=== PATIENT | female | born 1940 | race African-American/Black ===

== ENCOUNTER 2020-02-13 09:01 | Inpatient (IN) | payer MEDICARE, MEDICAID, OTHER ==
[2020-02-13 10:05] LABS: #Lymphocytes 0.5 thou/uL (1.20-3.40); #Monocytes 0.3 thou/uL (0.11-0.59); #Neutrophils 7.5 thou/uL (1.40-6.50); %Basophils 0.1 % (0.0-1.0); %Lymphocytes 5.4 % (21.0-51.0); %Monocytes 3.2 % (0.0-10.0); %Neutrophils 91.2 % (42.0-75.0); Hemoglobin 13.3 g/dL (12.0-16.0); Mean Corpuscular HGB CONC 30.6 g/dL (32.0-36.0); Mean Corpuscular Hemoglobin 30.6 pg (27.0-31.0); Mean Corpuscular Volume 99.8 fL (78.0-98.0); Mean Platelet Volume 9.4 fL (7.4-10.4); Platelet Count 142 thou/uL (130-400); Red Blood Cell (RBC) Count 4.36 mill/uL (4.20-5.40); White Blood Cell (WBC) Count 8.3 thou/uL (4.8-10.8)
--- NOTE | 2020-02-13 10:11 | RAD ---
EXAM: Single view of the chest HISTORY: Weakness and difficulty breathing COMPARISON: 08/21/2014 FINDINGS: Single view of the chest shows a normal sized cardiomediastinal silhouette. Atheroscleroti c calcifications are seen in the aorta. Multifocal peripheral airspace opacities are seen in the lungs. No pleural effusion is seen. There is elevation of the right hemidiaphragm. Degenerative roberts es are seen in the spine. IMPRESSION: Multifocal infiltrates
[2020-02-13 10:35] LABS: ALT (SGPT) 51 U/L (8-55); AST (SGOT) 71 U/L (5-34); Albumin 3.6 g/dL (3.4-4.8); Alkaline Phosphatase 115 U/L (40-110); Anion Gap 14 mmol/L (10-20); BUN (Urea Nitrogen) 83 mg/dL (9.8-20.1); Bilirubin, Total 0.7 mg/dL (0.2-1.2); Calc. Creatinine Clearance 0 mL/min (70-130); Calcium 9.2 mg/dL (7.8-10.44); Carbon Dioxide 32 mmol/L (23-31); Chloride 93 mmol/L (98-107); Estimated GFR-MDRD 17; Globulin 3.5 g/dL (2.4-3.5); Glucose 137 mg/dL (83-110); Potassium 5.6 mmol/L (3.5-5.1); Protein, Total 7.1 g/dL (6.0-8.3); Sodium 133 mmol/L (136-145)
[2020-02-13 10:46] LABS: Bacteria/HPF 4+ HPF (None Seen); Bilirubin Negative (Negative); Blood, Urine 3+ (Negative); Clarity Extra Turbid (Clear); Glucose, Urine (Dipstick) Normal (Negative); Ketone, Urine Negative (Negative); Leukocyte 500 Leu/uL (Negative); Nitrite Negative (Negative); Protein, Urine (Dipstick) 300 mg/dL (Neg-Trace); RBC/HPF 21-50 HPF (0-3); Specific Gravity, Urine 1.022 (1.002-1.036); Squamous Epithelial 0-3 HPF (0-3); Urobilinogen 6 mg/dL (Less than 2); WBC/HPF Greater than 50 HPF (0-3); pH, Urine 5.5 (5.0-9.0)
[2020-02-13] MEDS ORDERED: cefTRIAXone\\ROCEPHIN 2 GM VIAL ONE (10:51)
[2020-02-13 10:53] LABS: CKMB 2.8 ng/mL (0-6.6)
[2020-02-13] MEDS ORDERED: Azithromycin 500 MG VIAL ONE ×2 (10:53→16:26)
[2020-02-13] MEDS ORDERED: Azithromycin 500 MG in Sodium Chloride 0.9% 250 ML 250 ML IVPB SCH (11:15)
[2020-02-13] MEDS ORDERED: Aspirin Chewable 81 MG TAB ONE (11:20)
[2020-02-13 11:56] LABS: SARS-CoV-2 NAA Rapid Test Not Detected (NotDetected)
--- NOTE | 2020-02-13 12:57 | CT ---
CT OF THE ABDOMEN AND PELVIS WITH IV CONTRAST INDICATION: 79-year-old female with abdominal pain COMPARISON: Prior CT of the abdomen and pelvis dated February 01, 2009 FINDINGS: ABDOMEN: Lung bases: Small bilateral pleural effusions, right greater than left. There is mild cardiomegaly. Liver: There is slight nodular contour of the liver may reflect changes of mild cirrhosis. Gallbladder: There are layered stones within the gallbladder Pancreas: Not well seen due to the lack of IV and enteric contrast Adrenal glands: Not well seen due to lack of IV contrast Spleen: Normal. Kidneys and ureters: No definite renal or ureteral calculus is evident. No hydronephrosis. Vasculature: There are moderate vascular calcifications seen involving the visualized vasculature. Lymph nodes:No lymphadenopathy. Free fluid in abdomen:No free fluid is evident. PELVIS: Small and large bowel: There is a prominent amount of retained stool within the rectum and colon. Sma ll bowel is of normal caliber. Appendix:Normal Bladder: Decompressed Rectal and perirectal soft tissues:Retained stool Reproductive structures: Not well seen due to the lack of IV contrast. There is a fibroid uterus. Free fluid in pelvis: No free fluid is evident. Lymphadenopathy pelvis: Not well seen due to the lack of IV contrast Osseous structures: There is healing sacroiliitis bilaterally. There are prominent protrusio deformit ies of both hips with periarticular erosive change. The severe compression abnormality of L1 is stable. There is an interval age-indeterminate superior endplate compression abnormality of L2. There is stable compression abnormalities of T7, T9 and T10. Soft tissues:There is diffuse anasarca IMPRESSION: 1. Findings of volume overload or CHF. 2. Cholelithiasis 3. No renal or ureteral calculus or hydronephrosis demonstrated 4. Prominent amount retained stool within the colon and rectum. 5. Interval age-indeterminate superior endplate compression abnormality of L2. 6. Chronic findings as above
[2020-02-13] MEDS ORDERED: Norepinephrine 8 MG/0.9% NS 250 ML ONE (13:05)
--- NOTE | 2020-02-13 13:25 | ULT ---
BILATERAL LOWER EXTREMITY VENOUS DOPPLER EVALUATION PROVIDED CLINICAL HISTORY: Shortness of breath TECHNIQUE: Grayscale, color doppler and spectral doppler images were obtained of the common femoral , femoral, profunda femoral, popliteal and posterior tibial veins of both lower extremities. FINDINGS: There is normal compression, flow and augmentation seen with the deep venous structures within both l ower extremities. There is bilateral lower extremity subcutaneous edema IMPRESSION: No sonographic evidence for lower extremity deep venous thrombosis.
[2020-02-13 14:07] LABS: Anion Gap 17 mmol/L (10-20); BUN (Urea Nitrogen) 88 mg/dL (9.8-20.1); Calc. Creatinine Clearance 0 mL/min (70-130); Calcium 9.3 mg/dL (7.8-10.44); Carbon Dioxide 31 mmol/L (23-31); Chloride 92 mmol/L (98-107); Estimated GFR-MDRD 15; Glucose 139 mg/dL (83-110); Potassium 5.9 mmol/L (3.5-5.1); Sodium 134 mmol/L (136-145)
[2020-02-13 14:23] LABS: CKMB 3.3 ng/mL (0-6.6)
[2020-02-13 14:52] LABS: Phosphorus 6.2 mg/dL (2.3-4.7)
[2020-02-13] MEDS ORDERED: Calcium Gluc 4.6 MEQ/10 ML (100 MG/ML) SLOW IVP SCH (15:00)
[2020-02-13] MEDS ORDERED: Insulin Regular 300 UNITS/3 ML VIAL IVP SCH (15:00)
[2020-02-13] MEDS ORDERED: Albuterol Sulfate 2.5 mg/3 ml Neb NEB SCH (15:00)
[2020-02-13] MEDS ORDERED: Sodium Bicarbonate 150 MEQ in Dextrose 5% in Water 1,000 ML IV SCH (15:00)
[2020-02-13] MEDS ORDERED: Dextrose 50% Abboject 50 ML SYRINGE SLOW IVP SCH (15:00)
[2020-02-13] MEDS ORDERED: Dextrose 5 % And 0.9 % NaCl 1,000 ML IV SCH (15:00)
[2020-02-13] MEDS ORDERED: Bisacodyl 10 MG SUPP PR PRN (15:01)
[2020-02-13] MEDS ORDERED: Acetaminophen 650 MG Suppository PR PRN (15:09)
[2020-02-13] MEDS: Norepinephrine 8 MG/0.9% NS 250 ML IVPB SCH (15:30)
[2020-02-13 16:11] LABS: Creatinine, Urine 139.26 mg/dL (47-110)
[2020-02-13] MEDS ORDERED: Insulin Regular 300 UNITS/3 ML VIAL ONE (16:26)
[2020-02-13] MEDS ORDERED: Dextrose 50% Abboject 50 ML SYRINGE ONE ×3 (16:26→16:31)
[2020-02-13] MEDS ORDERED: Calcium Gluc 4.6 MEQ/10 ML (100 MG/ML) ONE ×2 (16:26→16:29)
[2020-02-13] MEDS ORDERED: Albumin 25% 25 GM/100 ML BOT IVPB SCH (16:45)
[2020-02-13] MEDS ORDERED: Albuterol Sulfate 2.5 mg/3 ml Neb ONE (16:45)
[2020-02-13] MEDS ORDERED: Dextrose 5% in Water 1,000 ML IV PRN (17:05)
[2020-02-13] MEDS ORDERED: Dextrose 50% Abboject 50 ML SYRINGE SLOW IVP PRN (17:05)
[2020-02-13] MEDS ORDERED: Furosemide 40 MG/4 ML VIAL SLOW IVP SCH (17:15)
--- NOTE | 2020-02-13 17:21 | HP ---
PRIMARY CARE PHYSICIAN: The patient is currently residing at [facility]. CHIEF COMPLAINT: Altered mentation. HISTORY OF PRESENT ILLNESS: The patient is a 79-year-old female with hypertension, diabetes mellitus type 2, and congestive heart failure, was brought into the emergency room with altered mentation. History obtained from the custodial staff over the phone. The patient is more or less wheelchair dependent. She is alert, awake, oriented x3 at baseline. She is able to transfer herself from the wheelchair. She is on regular diet. She has been residing at [facility] since 2011. The patient was found to have slumped over on her wheelchair this morning by the staff for which she was sent to the emergency room for evaluation. There was no fever, chills, facial droop, or chest pain reported. Her respirations were little bit labored per staff. No other information is available from the patient due to altered mentation. At this time, the patient is somnolent. Her blood pressure at the custodial was 90/61 with pulse rate of 82, temperature 97.6, with respirations of 17 prior to ER arrival. In the emergency room, she was found to have acute kidney injury along with persistent hypotension requiring pressors after a central line placement. Bilateral lower extremity Doppler was negative for DVT. She was found to have hyperkalemia with indeterminate troponins. COVID-19 testing was negative. PAST MEDICAL HISTORY: 1. Chronic diastolic heart failure. 2. Diabetes mellitus type 2. 3. Hypertension with hypertensive heart disease. 4. Anxiety. 5. Chronic pain syndrome. 6. Chronic bilateral lower extremity lymphedema. 7. Physical deconditioning. PAST SURGICAL HISTORY: 1. Open reduction and internal fixation of the left distal femur in 2014. 2. Right thigh decubitus ulcer debridement in 2012. ALLERGIES: THE PATIENT IS ALLERGIC TO CODEINE. CURRENT HOME MEDICATIONS: At the custodial; 1. Vitamin C 500 mg daily. 2. Colace 100 mg at bedtime. 3. Lasix 40 mg daily. 4. Melatonin 10 mg at bedtime. 5. Metformin 1000 mg daily. 6. Potassium chloride 10 mEq every other day. 7. Tramadol as needed. 8. Trazodone 50 mg at bedtime. 9. Vasotec 2.5 mg daily. 10. Vitamin D3 2000 units daily. SOCIAL HISTORY: As discussed above. The patient is full code and her son is the decision maker. Contact number is [phone], Champ Patricio. FAMILY HISTORY: Cannot be obtained from the patient due to current mentation. REVIEW OF SYSTEMS: Cannot be obtained from the patient due to current mentation. PHYSICAL EXAMINATION: VITAL SIGNS: As discussed above. She is currently on Levophed. Lowest blood pressure was 75/51. GENERAL: A 79-year-old female in no apparent distress, ill-appearing. HEENT: Head, atraumatic and normocephalic. Sclerae anicteric. Dry mucous membranes. No oral lesion. NECK: Supple. No JVD. No neck stiffness. LUNGS: Show diminished air entry at bilateral bases with rales and rhonchi, especially at bases. There was no wheezing. Trachea in midline. HEART: S1 and S2 present. Regular rate and rhythm. No rubs or gallops. ABDOMEN: Soft, nontender. Bowel sounds present. No rebound or guarding. No costovertebral angle tenderness. EXTREMITIES: Bilateral lower extremity 2 to 3+ edema. No calf tenderness. SKIN: Warm and dry. LYMPH NODES: No palpable lymph nodes in the neck. NEUROLOGY AND PSYCHIATRY: Limited due to current mentation. LABORATORY FINDINGS: COVID testing negative. WBC 8.3 with hemoglobin 13.3, hematocrit 43.6, platelet 142. Chemistry showed sodium 133 with potassium 5.6, chloride 93, bicarb 32, BUN 83, creatinine 2.77. Lactic acid 2.8. Repeat lactic acid after hydration was 2.0. Repeat potassium 5.9 with creatinine 2.95. Troponin of 0.143. BNP was 2604. Urinalysis showed greater than 50 wbc's with 4+ bacteria. EKG by my review showed sinus tachycardia with nonspecific ST-T wave changes. Chest x-ray by my review showed pulmonary vascular congestion. CT scan of the abdomen and pelvis by my review showed findings consistent with congestive heart failure with prominent amount of retained stool within the colon and rectum. IMPRESSION: 1. Toxic metabolic encephalopathy, multifactorial. 2. Generalized weakness. 3. Acute on chronic congestive heart failure exacerbation, ejection fraction unknown. 4. Acute kidney injury on chronic kidney disease stage 2. The last creatinine in our system is from 2014. 5. Lactic acidosis probably secondary to reduced intravascular volume and third-spacing. 6. Hyponatremia/hyperkalemia. 7. Type 2 myocardial infarction. 8. Urinary tract infection. 9. Macrocytosis. 10. Constipation. 11. Gastroesophageal reflux disease. 12. Diabetes mellitus type 2. 13. Chronic pain syndrome. 14. Chronic insomnia. PLAN: The patient will be monitored in the intensive care unit. Central line has been placed. We will continue Levophed. We will trend troponins. We will start her on aspirin. Nephrology and Cardiology consultation. Echocardiogram will be obtained. Gentle IV hydration. Hold diuretics for now. Treat UTI. GI prophylaxis. Insulin with dextrose, albuterol nebulization, as well as calcium gluconate for hyperkalemia. We will recheck labs in a.m. We will discuss the plan of care with the family. The patient will require 2 to 3 days for stabilization. Physical therapy, occupation therapy, and speech therapy evaluation. Job ID: [id number]
[2020-02-13] MEDS: Dextrose 5 % And 0.9 % NaCl 1,000 ML IV SCH (17:52)
--- NOTE | 2020-02-13 18:17 | CON ---
DATE OF CONSULTATION: 02/13/2020 SERVICE: Nephrology. REASON FOR CONSULTATION: Renal failure and hyperkalemia. REQUESTING PHYSICIAN: Dr. Sanford Gutiérrez. CHIEF COMPLAINT: Shortness of breath and chest pain. HISTORY OF PRESENT ILLNESS: A 79-year-old female, [place] resident with past medical history significant for diabetes mellitus, chronic bilateral leg edema, hypertension, and others, who was brought in due to mild chest pain and shortness of breath. Symptoms of chest pain and shortness of breath reportedly have resolved prior to arrival to the ED. The patient however was found to be hypotensive and tachycardic on presentation and was treated with IV fluid bolus and subsequently started on Levophed. She also was found to have elevated creatinine and hyperkalemia. Evaluation with lower extremity Doppler was negative for DVT. She also had chest x-ray, which showed features of congestive heart failure. The patient is being admitted for further evaluation, and Nephrology consult was requested for management of acute renal failure and hyperkalemia. There is a concern for mental status change. Patient also admitted to significant weight loss. Denied nause or vomiting. History is limited due to patient condition. PAST MEDICAL HISTORY: 1. Chronic bilateral leg edema. 2. Insomnia. 3. Allergic rhinitis. 4. Diabetes mellitus. 5. Gastroesophageal reflux disease. 6. Hypertension. 7. Osteoarthritis. PAST SURGICAL HISTORY: Open reduction and internal fixation of left distal femoral fracture. FAMILY HISTORY: Reviewed, but noncontributory. SOCIAL HISTORY: The [facility]. She admitted to smoking previously, but currently not smoking. She also admitted to prior use of alcohol in the past. ALLERGIES: REPORTED ADVERSE REACTION TO CODEINE PHOSPHATE. CURRENT MEDICATIONS: 1. Vasotec 2.5 mg p.o. daily. 2. Potassium chloride 10 mEq p.o. daily. 3. Lasix 40 mg p.o. daily. 4. Tramadol 50 mg q.6 p.r.n. for pain. 5. Metformin 1000 mg p.o. b.i.d. 6. Vitamin D3, 2000 units daily. 7. Colace 100 mg p.o. b.i.d. 8. Aspirin 81 mg p.o. daily. 9. Trazodone 50 mg p.o. daily at bedtime. REVIEW OF SYSTEMS: Pertinent positives and negatives are included in the history of present illness. Otherwise, 12-point review of system performed was negative. PHYSICAL EXAMINATION: VITAL SIGNS: On presentation, initial vitals showed blood pressure of 90/63, pulse 94, respiratory rate 18, SpO2 of 95 on room air, temperature 98.8. Most current vitals showed BP 104/63, pulse 75, respiratory rate 13, SpO2 of 95.7. GENERAL: Chronically ill-looking, elderly female, in no obvious distress. She however is fatigued, but anicteric, afebrile, and acyanotic. HEENT: Normocephalic and atraumatic. Oral mucosa is moist. NECK: Engorged neck veins noted. CARDIOVASCULAR: Regular rhythm with occasional ectopics. RESPIRATORY: Fair air entry bilaterally with some transmitted breath sounds. No obvious respiratory distress or rhonchi appreciated. GI: Abdomen is flat, soft, and nontender. UROGENITAL: Croonel catheter is in place, draining no urine. EXTREMITIES: Marked edema of both lower extremities noted. Mild tenderness of right leg also is appreciated. MUSCULOSKELETAL: Atrophy and wasting of upper body noted. SKIN: Erythema of the right lower extremity extending to the thigh, especially on the medial side noted. MAINTENANCE SUPERVISOR ELECTRICAL: Conscious and awake. Oriented to person and place. Some memory lapses noted. The patient moves all extremities but weakly. Cranial nerves 2 through 12 are grossly intact. DIAGNOSTIC DATA: CBC showed WBC count of 8.3, hemoglobin of 13.3, MCV of 99.8, platelets of 142. Initial chemistry showed sodium 133, potassium 5.6, chloride 93, CO2 of 32, BUN 83, creatinine 2.77, glucose 137, calcium 9.2, total bilirubin 0.7, AST 71, ALT 51, alkaline phosphatase 117, total protein 7.4, and albumin 3.6. Cardiac markers showed BNP of 2604, initial troponin was 0.143. CK is 2.8. Initial lactic acid was 2.8, repeat 3 hours is 2.0. Urinalysis showed dark yellow, extra turbid urine with pH of 5.5, specific gravity of 1.022, positive protein, and negative ketone, nitrite, and bilirubin. Blood was 3+, urobilinogen was positive, leukocyte esterase was positive. Microscopy showed 21 to 50 rbc's and greater than 50 wbc's with 4+ bacteria as well as 1+ amorphous crystals. SARS-CoV-2 rapid PCR was not detected. EKG showed sinus tachycardia with rate of 104. T-wave inversion in lead III and V1 to V4 were noted. No obvious ST elevation was appreciated. Chest x-ray showed multifocal peripheral airspace opacities seen in the lungs with no pleural effusion. Elevation of right hemidiaphragm was noted as well as degenerative changes in the spine. CT scan of the abdomen and pelvis without IV contrast showed small bilateral pleural effusions, right greater than left, as well as mild cardiomegaly. Slight nodular contour of the liver suggestive of cirrhotic changes as well as layered stones within the gallbladder. Kidneys and ureters showed no definite renal or ureteral calculus or hydronephrosis. Moderate vascular calcification is seen involving the visualized vasculature, while prominent amount of retained stool within the rectum and colon was noted. Osseous structures showed healing sacroiliitis bilaterally as well as prominent protrusion deformity of both hips with periarticular erosive changes and severe compression abnormality of L1. There is also an interval, age indeterminate, superior endplate compression abnormality of L2 as well as diffuse anasarca. ASSESSMENT: 1. Hyperkalemia: Most likely due to renal failure and potassium supplementation as well as use of Vasotec. EKG showed no obvious cardiac toxicity. 2. Renal insufficiency: Available labs showed creatinine of less than 1 in 2015, but there was no other lab available since then up until now with creatinine of above 2. Most likely, acute on chronic renal failure. The patient has been on Vasotec as well as diuretics for some time. She also has features of cardiac decompensation. This most likely is due to hemodynamic factors related to intravascular contraction, cardiorenal syndrome, and medications. Hepatorenal syndrome is a concern, given features of cirrhosis noted on CT scan and anasarca. 3. Anasarca: Either due to cardiac decompensation and/or hepatic pathology. 4. Hypotension: Seems to be multifactorial from cardiac decompensation with superimposed sepsis. Liver decompensation/cirrhosis may also cause hypotension. Volume contraction from poor oral intake and continued use of diuretics maybe contributory. 5. Sepsis: Given tachycardia, lactic acidosis, and presumed right lower extremity cellulitis. Urinary tract infection is also a concern. 6. Abnormal liver function tests. 7. Right lower extremity cellulitis. 8. Presumed urinary tract infection. 9. Presumed acute coronary syndrome: [id number] myocardial infarction is a concern, given chest pain and elevated troponin. 10. Diabetes mellitus, on metformin. 11. Hypertension. PLAN: 1. We treat hyperkalemia with albuterol, insulin with dextrose as well as calcium gluconate. 2. We will also add Kayexalate, given constipation noted on CT. 3. Agree with the pressor support with Levophed. 4. We will also get renal ultrasound. 5. Echocardiogram of the heart to help assess the cardiac function and help fluid management. 6. We will also get urine electrolytes as well as urine protein-creatinine ratio. 7. Given clear evidence of fluid overload, we will give the patient albumin with Lasix. Further treatment to follow depending on hospital course and review of other diagnostic tests. Many thanks for involving us in the care of this patient. We will follow along with you. Job ID: [id number] [id number]
[2020-02-13] MEDS ORDERED: Furosemide 40 MG/4 ML VIAL ONE (18:22)
--- NOTE | 2020-02-13 18:45 | ULT ---
RENAL ULTRASOUND: 02/13/20 HISTORY: Acute renal insufficiency. COMPARISON: A 02/13/20 CT examination. Exam is limited by bowel gas and body habitus and patient immobility. Real time imaging of the right and left kidneys were performed. The right kidney measures 9.2 and the left kidney 9 cm in size. Both kidneys show increased echogenicity. There is no obstruction demonstr ated. Gallstones are incidentally noted. Bladder is decompressed with Coronel catheter. IMPRESSION: 1. Increased echogenicities of both kidneys. Kidneys are very difficult to visualize particularl y the left kidney. They are echogenic, particularly the right kidney suggesting underlying chronic me dical renal parenchymal disease. No obstruction. 2. Gallstones. POS: OFF
[2020-02-13 19:27] LABS: Anion Gap 15 mmol/L (10-20); BUN (Urea Nitrogen) 86 mg/dL (9.8-20.1); Calc. Creatinine Clearance 0 mL/min (70-130); Calcium 9.6 mg/dL (7.8-10.44); Carbon Dioxide 34 mmol/L (23-31); Chloride 93 mmol/L (98-107); Estimated GFR-MDRD 15; Glucose 96 mg/dL (83-110); Potassium 4.8 mmol/L (3.5-5.1); Sodium 137 mmol/L (136-145)
[2020-02-13] MEDS ORDERED: Hydrocortisone Sod Succ/PF 100 mg/2 ml Vial IVP SCH (20:15)
[2020-02-13] MEDS ORDERED: Hydrocortisone Sod Succ/PF 100 mg/2 ml Vial ONE (20:16)
[2020-02-13] MEDS ORDERED: Famotidine/PF 20 mg/2ml Vial ONE (20:54)
--- NOTE | 2020-02-13 21:32 | CON ---
DATE OF CONSULTATION: 02/13/2020 REASON FOR CONSULTATION: Possible heart failure, hypotension. PRIMARY INTERVENTIONAL TECHNOLOGIST: Dr. Izaiah Virk. HISTORY OF PRESENT ILLNESS: Mrs. Humphreys is a 79-year-old female, who comes to the hospital for altered mentation. She lives at [facility] and was found to be slumped over on her wheelchair in the morning by the staff. No fever, chills. No chest pain reported whatsoever. She was brought in because of this and was found to be hypotensive, hyperkalemic with kidney injury. Cardiology is being consulted for possibility of heart failure as her BNP is also elevated. On my evaluation, Mrs. Humphreys remains unresponsive. She is sleeping comfortably, saturating well on just nasal cannula, maintaining her airway, however, she has a Janelle Hugger on. PAST MEDICAL HISTORY: 1. History of diastolic dysfunction. 2. Type 2 diabetes. 3. Hypertension. 4. Anxiety. 5. Chronic pain syndrome. 6. Chronic bilateral lower extremity edema, thought to be lymphedema. 7. Physical deconditioning and wheelchair-bound most of the time. PAST SURGICAL HISTORY: 1. ORIF of the left distal femur in 2014. 2. Right thigh decubitus ulcer debridement in 2012. OUTPATIENT MEDICATIONS: 1. Vitamin C. 2. Colace. 3. Lasix 40 mg a day. 4. Melatonin. 5. Metformin 1000 mg a day. 6. Potassium chloride 10 mEq every other day. 7. Tramadol. 8. Trazodone. 9. Vasotec 2.5 mg a day. 10. Vitamin D3. ALLERGIES: CODEINE. SOCIAL HISTORY: She lives at [facility]. No alcohol, tobacco, or drugs. Mostly wheelchair-bound. FAMILY HISTORY: Noncontributory. REVIEW OF SYSTEMS: Unobtainable as the patient is nonverbal. PHYSICAL EXAMINATION: VITAL SIGNS: Temperature on admission, she was at 95.7 with a blood pressure 104/63; pulse of 75; respiratory rate was 13; saturating 99% on 2 L nasal cannula. GENERAL: Nonresponsive, but maintaining her airway. HEENT: Normocephalic and atraumatic. NECK: Supple. There is JVD up to about 14 cm of water bilaterally. LUNGS: Have mild crackles, but clear anteriorly. CARDIOVASCULAR: S1 and S2. There is a grade 3/6 holosystolic murmur at the apex consistent with some level of mitral regurgitation. ABDOMEN: Soft. EXTREMITIES: 3+ edema. SKIN: Warm and dry. Possible cellulitis on one of the legs. LABORATORY DATA: Laboratory work was reviewed. White count of 8, hemoglobin 13, hematocrit 43, and platelet count of 142. Chemistries with a sodium of 134 on admission, up to 137; potassium was 5.9, down to 4.8 now; anion gap was 17, down to 15; BUN of 88, down to 86; creatinine went from 2.95 up to 3.09. GFR 15. Lactic acid was 2.0. Troponin was in the indeterminate range x3 at 0.14, 0.17, 0.20. BNP was 2604. Cortisol was 27. Albumin at 3.6. UA was turbid, 300 protein, 3+ blood, greater than 50 white cells, 4+ bacteria. COVID-[address] of the abdomen and pelvis showed findings suggestive of CHF with free fluid in the pelvis. Small bilateral pleural effusions, right greater than left, and mild cardiomegaly. Cirrhotic morphology of the liver with slight nodular contour. There are layered stones within the gallbladder, moderate vascular calcifications. Chest x-ray shows multilobar infiltrates, which could reflect either CHF versus some sort of viral pneumonia. Renal ultrasound shows increased echogenicity in both kidneys and gallstones. No evidence of DVT in lower extremity venogram. ASSESSMENT AND PLAN: 1. Acute on chronic systolic versus diastolic heart failure. She has JVD, lower extremity edema, and abdominal fluid. This is consistent with some level of right-sided heart failure. This could be either diastolic or systolic dysfunction. We will get an echocardiogram to assess LV function. 2. Relative hypotension. At this time, her blood pressure is borderline low. She remains on Levophed and she is taking very gentle IV fluids at 40 mL/h. 3. Acute kidney injury on chronic kidney disease. 4. Hyperkalemia, improved. 5. Possible liver cirrhosis. PLAN: 1. In my opinion, she is in acute decompensated heart failure. Whether this is systolic or diastolic, but she has JVD and significant swelling and chest x-ray seems to be CHF as well, very elevated BNP. At this time, I would recommend starting IV diuresis. I would give one dose of IV Lasix at 80 mg to see if she will respond and she will start urinating. As of this time, she is making less urine and her creatinine is actually going up. 2. We will try to get a stat echo to look at LV function, valvular structures. 3. Sepsis is also consideration. We will continue Levophed for now for blood pressure. 4. We will leave any IV antibiotics to primary team. This maybe urinary tract infection as well. 5. Further recommendations per results of echo. Job ID: [id number]
[2020-02-14] MEDS ORDERED: Norepinephrine 8 MG/0.9% NS 250 ML ONE (00:32)
[2020-02-14 04:25] LABS: Hemoglobin 13.1 g/dL (12.0-16.0); Mean Corpuscular HGB CONC 30.6 g/dL (32.0-36.0); Mean Corpuscular Hemoglobin 31.1 pg (27.0-31.0); Mean Platelet Volume 10.5 fL (7.4-10.4); Platelet Count 193 thou/uL (130-400); RBC Distribution Width 15.1 % (11.5-14.5); Red Blood Cell (RBC) Count 4.21 mill/uL (4.20-5.40); White Blood Cell (WBC) Count 10.7 thou/uL (4.8-10.8)
[2020-02-14 04:28] LABS: Band 20 % (5-11); Elliptocytes MODERATE= 6-15 cells (100X) (0-1/hpf); Eosinophils 1 % (0-10); Lymphocytes 1 % (21-51); MDiff Complete? YES; Monocytes 2 % (0-10); Neutrophil 76 % (42-75); Schistocytes SLIGHT = 2-5 cells (100X) (0-1/hpf)
[2020-02-14 04:38] LABS: Troponin I 0.261 ng/mL (< 0.028)
[2020-02-14 05:09] LABS: Albumin 3.9 g/dL (3.4-4.8)
[2020-02-14 05:10] LABS: Chloride 94 mmol/L (98-107); Potassium 6.3 mmol/L (3.5-5.1); Sodium 134 mmol/L (136-145)
[2020-02-14 05:11] LABS: Calcium 9.3 mg/dL (7.8-10.44); Glucose 125 mg/dL (83-110)
[2020-02-14 05:12] LABS: Globulin 2.9 g/dL (2.4-3.5); Protein, Total 6.8 g/dL (6.0-8.3)
[2020-02-14 05:13] LABS: Anion Gap 22 mmol/L (10-20); Bilirubin, Total 0.8 mg/dL (0.2-1.2); Carbon Dioxide 24 mmol/L (23-31)
[2020-02-14 05:14] LABS: Alkaline Phosphatase 111 U/L (40-110)
[2020-02-14 05:15] LABS: Calc. Creatinine Clearance 18 mL/min (70-130); Estimated GFR-MDRD 15
[2020-02-14 05:16] LABS: BUN (Urea Nitrogen) 95 mg/dL (9.8-20.1)
[2020-02-14 05:17] LABS: ALT (SGPT) 68 U/L (8-55); AST (SGOT) 98 U/L (5-34)
[2020-02-14] MEDS: Aspirin 300 MG Suppository PR SCH ×2 (07:33→20:36)
[2020-02-14] MEDS: Famotidine/PF 20 mg/2ml Vial SLOW IVP SCH ×3 (07:34→20:36)
[2020-02-14 08:11] LABS: Actual Bicarbonate (HCO3a) 30.8 mEq/L (22-28); Base Excess (BEa) 0.3 mEq/L (-2.0 to +3.0); Calcium, Ionized (arterial) 1.18 mmol/L (1.12-1.30); Carboxyhemoglobin (COHb) 1.1 gm% (0.0-3.0); Hemoglobin (Hb) 13.5 g/dL (12.0-16.0); O2 Tension (PaO2), arterial 86.6 mmHg (> 70.0); Potassium - ABG Lab 5.45 mmol/L (3.70-5.30)
[2020-02-14 08:25] LABS: Puncture Site RBRACH; pH, Arterial 7.19 (7.35-7.45)
[2020-02-14] MEDS: Heparin 5,000 UNITS/ML VIAL SC SCH ×2 (08:53→09:33)
[2020-02-14] MEDS: Polyethylene Glycol 3350 17 GM Packet PO SCH ×3 (08:54→20:27)
[2020-02-14] MEDS: Linezolid 600 MG in Premix Bag 1 BAG IVPB SCH ×3 (08:54→20:36)
[2020-02-14] MEDS: Senokot S 8.6-50 MG TAB PO SCH ×3 (08:54→20:27)
[2020-02-14] MEDS: Albumin 25% 25 GM/100 ML BOT IVPB SCH ×4 (08:54→21:57)
[2020-02-14] MEDS ORDERED: Insulin Regular 300 UNITS/3 ML VIAL IVP SCH (09:00)
[2020-02-14] MEDS ORDERED: Dextrose 50% Abboject 50 ML SYRINGE SLOW IVP SCH (09:00)
[2020-02-14] MEDS ORDERED: Albuterol Sulfate 2.5 mg/3 ml Neb NEB SCH (09:00)
[2020-02-14] MEDS ORDERED: Furosemide 100 MG/10 ML VIAL SLOW IVP SCH (09:00)
[2020-02-14] MEDS ORDERED: Aspirin Chewable 81 MG TAB PO SCH (09:00)
[2020-02-14] MEDS: cefTRIAXone\\ROCEPHIN 1 GM in Sodium Chloride 0.9% 100 ML IVPB SCH (09:32)
--- NOTE | 2020-02-14 10:03 | RAD ---
XR Chest 1 View Portable History: Ventilated patient Comparison: Radiograph prior day Findings: Chronic right hemidiaphragm elevation. No confluent airspace consolidation, pneumothorax or effusion. No acute osseous abnormality. No enteric or endotracheal tube are appreciated. Impression: No acute intrathoracic abnormality.
--- NOTE | 2020-02-14 10:10 | CON ---
DATE OF CONSULTATION: 02/14/2020 TIME SPENT: 35 minutes of critical care time. REASON FOR CONSULTATION: Acute respiratory failure. HISTORY OF PRESENT ILLNESS: The patient apparently spent the night in the emergency room waiting for a bed. She is a 79-year-old female, who lives in a shelter. She was brought in yesterday with altered mental status. She was found to be in acute renal failure and was hyperkalemic. She also has suspected urosepsis. She had an ABG obtained showing a respiratory acidosis and she has been placed on BiPAP. At the current time, she looks comfortable. She is able to answer some questions with the BiPAP mask and does not appear to be in any distress. PAST MEDICAL HISTORY: 1. Diastolic heart dysfunction. 2. Diabetes mellitus type 2. 3. Hypertension. 4. Chronic pain. 5. Lymphedema in lower extremities. PAST SURGICAL HISTORY: 1. ORIF, left distal femur in 2014. 2. Right thigh decubitus ulcer debridement in 2012. ALLERGIES: CODEINE. MEDICATIONS: Prior to admission; 1. Vitamin C. 2. Colace. 3. Lasix. 4. Melatonin. 5. Metformin. 6. Potassium chloride. 7. Tramadol. 8. Trazodone. 9. Vasotec. 10. Vitamin D3. SOCIAL HISTORY: She does have a distant history of smoking. Does not currently smoke. She lives in the shelter as she has for the past 8 years. FAMILY MEDICAL HISTORY: Unremarkable. REVIEW OF SYSTEMS: Otherwise negative. PHYSICAL EXAMINATION: VITAL SIGNS: Temperature 98.6, pulse 80, blood pressure 117/62, O2 saturation 93%. GENERAL: She is an elderly female, on BiPAP. HEENT: Unremarkable. NECK: No adenopathy or JVD. LUNGS: She has distant breath sounds with few crackles. CARDIAC: S1 and S2. Regular. ABDOMEN: Soft and nontender to palpation. EXTREMITIES: No clubbing or cyanosis. She has lymphedema from her thighs downward. LABORATORY DATA: White blood cell count 10.7, hematocrit 42.9, and platelet count 193 with 76% neutrophils, 20% bands. PH 7.19, pCO2 of 82, pO2 of 86 on 3 L nasal cannula. Sodium 134, potassium 6.3, chloride 94, CO2 of 24, BUN 95, creatinine 3.1, glucose 125. Lactic acid was 2.8. Cortisol 27. AST 98, ALT 68. Troponin 0.26. Urinalysis showed greater than 50 white blood cells. COVID test was negative. X-ray shows elevated right hemidiaphragm compared to left. There are interstitial changes bilaterally, but nothing looks to acute. An abdominal/pelvis CT ordered in the ER demonstrated findings consistent with volume overload and some cholelithiasis. ASSESSMENT: 1. Urosepsis. 2. Altered mental status secondary to urosepsis. 3. Acute diastolic heart dysfunction. 4. Acute respiratory failure. PLAN: 1. She is currently on Levophed for blood pressure support. She has been started on appropriate antibiotics. Nephrology has been consulted for her acute renal failure and hyperkalemia. Her Vasotec is being held and her potassium is being held. 2. She will receive BiPAP for respiratory support. She has received some intravenous diuretics. Labs will be monitored closely. Job ID: [id number]
[2020-02-14] MEDS: Albuterol Sulfate 2.5 mg/3 ml Neb NEB SCH ×4 (10:24→23:20)
[2020-02-14 10:26] LABS: Actual Bicarbonate (HCO3a) 30.9 mEq/L (22-28); Base Excess (BEa) 1.5 mEq/L (-2.0 to +3.0); Calcium, Ionized (arterial) 1.16 mmol/L (1.12-1.30); Carboxyhemoglobin (COHb) 0.7 gm% (0.0-3.0); O2 Tension (PaO2), arterial 76.3 mmHg (> 70.0); Potassium - ABG Lab 4.91 mmol/L (3.70-5.30)
[2020-02-14 10:28] LABS: CO2 Tension 74.9 mmHg (35.0-45.0); pH, Arterial 7.23 (7.35-7.45)
[2020-02-14 10:29] LABS: ALV-art Gradient 43.975 mmHg (0-20); Puncture Site RBRACH
[2020-02-14] MEDS: Bisacodyl 10 MG SUPP PR SCH (10:30)
[2020-02-14] MEDS: Folic Acid 1 MG TAB PO SCH (10:30)
--- NOTE | 2020-02-14 12:14 | PDOC.CPN ---
- Subjective Date: 02/14/20 Time: 12:12 Interval history: She is on BiPAP now. She received the Lasix 80 mg IV and she has put out about 200 ml so far. She is better responsive today however. - Review of Systems ROS unobtainable: due to mental status - Objective Allergies/Adverse Reactions: Allergies Allergy/AdvReac Type Severity Reaction Status Date / Time codeine Allergy Verified 07/14/19 16:38 Visit Medications: Current Medications Acetaminophen (Acetaminophen 325 Mg Tab) 650 mg PO Q4H PRN PRN Reason: Headache/Fever/Mild Pain (1-3) Acetaminophen (Acetaminophen 650 Mg Suppository) 650 mg WA Q4H PRN PRN Reason: Headache/Fever/Mild Pain (1-3) Albumin Human (Albumin 25% 25 Gm/100 Ml Bot) 25 gm IVPB Q8HR [facility] Stop: 02/14/20 22:01 Last Admin: 02/14/20 09:32 Dose: 25 gm Documented by: Albuterol Sulfate (Albuterol Sulfate 2.5 Mg/3 Ml Neb) 2.5 mg NEB [id number] [facility] Last Admin: 02/14/20 10:24 Dose: 2.5 mg Documented by: Aspirin (Aspirin 300 Mg Suppository) 300 mg WA 2100 ALEX Last Admin: 02/14/20 07:33 Dose: Not Given Documented by: Bisacodyl (Bisacodyl 10 Mg Supp) 10 mg WA DAILYPRN PRN PRN Reason: Constipation Bisacodyl (Bisacodyl 10 Mg Supp) 10 mg WA DAILY [facility] Last Admin: 02/14/20 10:30 Dose: Not Given Documented by: Dextrose/Water (Dextrose 50% Abboject 50 Ml Syringe) 25 gm SLOW IVP PRN PRN PRN Reason: Hypoglycemia Dextrose/Water (Dextrose 50% Abboject 50 Ml Syringe) 25 gm SLOW IVP ONE ALEX Stop: 02/14/20 14:00 Last Admin: 02/14/20 09:36 Dose: 25 gm Documented by: Famotidine (Famotidine/Pf 20 Mg/2ml Vial) 20 mg SLOW IVP Q12HR ALEX Last Admin: 02/14/20 09:33 Dose: 20 mg Documented by: Folic Acid (Folic Acid 1 Mg Tab) 1 mg PO DAILY [facility] Last Admin: 02/14/20 10:30 Dose: 1 mg Documented by: Glucagon (Glucagon 1 Mg/Ml Vial) 1 mg IM PRN PRN PRN Reason: Hypoglycemia Heparin Sodium (Porcine) (Heparin 5,000 Units/Ml Vial) 5,000 units SC BID [facility] Last Admin: 02/14/20 09:33 Dose: 5,000 units Documented by: Ceftriaxone Sodium 1 gm/ (Sodium Chloride) 100 mls @ 200 mls/hr IVPB DAILY [facility] Last Admin: 02/14/20 09:32 Dose: 100 mls Documented by: Dextrose/Water (D5w) 1,000 mls @ 0 mls/hr IV .Q0M PRN PRN Reason: Hypoglycemia Dextrose/Sodium Chloride (D5 0.9% Ns) 1,000 mls @ 40 mls/hr IV .Q24H [facility] Last Admin: 02/13/20 17:52 Dose: 1,000 mls Documented by: Linezolid 600 mg/ Device 300 mls @ 150 mls/hr IVPB Q12HR [facility] Last Admin: 02/14/20 09:34 Dose: 300 mls Documented by: Norepinephrine Bitartrate (Levophed) 250 mls @ 0 mls/hr IVPB INF [facility]; Protocol Last Admin: 02/13/20 15:30 Dose: 250 mls Documented by: Insulin Human Regular (Insulin Regular 300 Units/3 Ml Vial) 0 units SC .MILD SLIDING SCALE PRN PRN Reason: Mild Correctional Scale Polyethylene Glycol (Polyethylene Glycol 3350 17 Gm Packet) 17 gm PO BID [facility] Last Admin: 02/14/20 10:29 Dose: Not Given Documented by: Senna/Docusate Sodium (Senokot S 8.6-50 Mg Tab) 2 tab PO BID [facility] Last Admin: 02/14/20 10:30 Dose: Not Given Documented by: Sodium Chloride (Flush - Normal Saline 10 Ml Syringe) 10 ml IVF PRN PRN PRN Reason: Saline Flush Sodium Polystyrene Sulfonate (Sodium Polystyrene Sulfonate 15 Gm/60 Ml Bot) 30 gm WA NOW [facility] Stop: 02/14/20 14:00 Last Admin: 02/14/20 09:39 Dose: Not Given Documented by: Vital Signs & Weight: Vital Signs Temp Pulse Resp Pulse Ox 02/14/20 10:24 82 20 99 02/14/20 10:23 84 15 95 02/14/20 08:23 77 02/14/20 07:35 98.6 F Admit Weight 164 lb 8.128 oz Weight 164 lb 8.128 oz - Physical Exam General: other (On BiPAP) HEENT: normocephaly Neck: supple neck Cardiac: regular rate and rhythm Lungs: bibasilar rales Neuro: no lateralizing findings Abdomen: active bowel sounds Extremities: other: (3+ edema) Skin: clear Musculoskeletal: normal range of motion - Labs Result Diagrams: 02/14/20 03:43 02/14/20 03:42 Troponin/CKMB CK-MB (CK-2) 3.3 ng/mL (0-6.6) 02/13/20 13:28 Troponin I 0.261 ng/mL (< 0.028) H 02/14/20 03:42 - Telemetry Sinus rhythms and dysrhythmias: sinus tachycardia - Assessment/Plan Assessment/Plan: 1. Acute RV failure 2. Hypotension 3. BENJAMIN on CKD 4. Possible Sepsis 5. Hyperkalemia 6. Possible liver cirrhosis. PLAN: - No DVT on leg study but given degree of RV dilatation would anticoagulate assuming PE. - VQ scan for posisble chronic thromboembolic disease. - She is more responsive today. - Give a second dose of IV lasix this afternoon. If we cant make her diurese may need HD if creatinine continues to climb. - LV function is hyperdynamic, this is all Right sided failure. - Critically ill and would not be unexpected.
[2020-02-14] MEDS ORDERED: Heparin 10,000 UNITS/ 10 ML VIAL SLOW IVP SCH (12:30)
[2020-02-14] MEDS ORDERED: Heparin 25,000 units/D5W 500 ML IVPB SCH (12:30)
[2020-02-14 12:46] LABS: Hemoglobin 12.6 g/dL (12.0-16.0); Platelet Count 157 thou/uL (130-400)
[2020-02-14] MEDS: Norepinephrine 8 MG/0.9% NS 250 ML IVPB SCH (13:03)
[2020-02-14 13:06] LABS: Anion Gap 19 mmol/L (10-20); BUN (Urea Nitrogen) 94 mg/dL (9.8-20.1); Calc. Creatinine Clearance 17 mL/min (70-130); Calcium 9.2 mg/dL (7.8-10.44); Carbon Dioxide 30 mmol/L (23-31); Chloride 94 mmol/L (98-107); Estimated GFR-MDRD 14; Glucose 125 mg/dL (83-110); Sodium 138 mmol/L (136-145)
[2020-02-14 13:58] LABS: Actual Bicarbonate (HCO3a) 32.2 mEq/L (22-28); Calcium, Ionized (arterial) 1.15 mmol/L (1.12-1.30); Carboxyhemoglobin (COHb) 0.5 gm% (0.0-3.0); Hemoglobin (Hb) 13.2 g/dL (12.0-16.0); O2 Tension (PaO2), arterial 215.9 mmHg (> 70.0); Potassium - ABG Lab 4.64 mmol/L (3.70-5.30)
[2020-02-14 14:06] LABS: pH, Arterial 7.21 (7.35-7.45)
[2020-02-14 14:07] LABS: ALV-art Gradient 394.475 mmHg (0-20); CO2 Tension 82.1 mmHg (35.0-45.0); Puncture Site RBRACH
[2020-02-14] MEDS: Furosemide 100 MG/10 ML VIAL SLOW IVP SCH (14:13)
--- NOTE | 2020-02-14 16:14 | PDOC.NEPPN ---
- Subjective Encounter Date: 02/14/20 Subjective: Seen in follow up for BENJAMIN and hyperkalemia. Developed worsening SOB and found to have acute respiratory acidosis and was started on BIPAP. Still on pressor. - Objective Vital Signs & Weight: Vital Signs (12 hours) Temp Pulse Resp Pulse Ox 02/14/20 14:19 80 20 100 02/14/20 12:00 100 02/14/20 10:24 82 20 99 02/14/20 10:23 84 15 95 02/14/20 08:23 77 02/14/20 08:00 95 02/14/20 07:35 98.6 F Weight Admit Weight 164 lb 8.128 oz Weight 164 lb 8.128 oz Most Recent Monitor Data Heart Rate from ECG 79 NIBP 119/63 NIBP BP-Mean 81 Respiration from ECG 25 SpO2 100 I&O: 02/13/20 02/14/20 02/15/20 06:59 06:59 06:59 Intake Total 260 Output Total 450 Balance -190 Result Diagrams: 02/15/20 03:39 02/15/20 03:39 Additional Labs: Accuchecks 02/14/20 02/14/20 14:03 11:15 POC Glucose 97 103 H Nephrology ROS - Medication Medications: Active Medications Generic Name Dose Route Start Last Admin Trade Name Freq PRN Reason Stop Dose Admin Albumin Human 25 gm 02/13/20 22:00 02/14/20 14:13 Albumin 25% 25 Gm/100 Ml Bot IVPB 02/14/20 22:01 25 gm Q8HR ALEX Administration Albuterol Sulfate 2.5 mg 02/14/20 10:30 02/14/20 14:19 Albuterol Sulfate 2.5 Mg/3 Ml Neb NEB 2.5 mg [id number] ALEX Administration Aspirin 300 mg 02/13/20 21:00 02/14/20 07:33 Aspirin 300 Mg Suppository ID Not Given 2100 ALEX Bisacodyl 10 mg 02/14/20 09:00 02/14/20 10:30 Bisacodyl 10 Mg Supp ID Not Given DAILY ALEX Famotidine 20 mg 02/13/20 21:00 02/14/20 09:33 Famotidine/Pf 20 Mg/2ml Vial SLOW IVP 20 mg Q12HR ALEX Administration Folic Acid 1 mg 02/14/20 09:00 02/14/20 10:30 Folic Acid 1 Mg Tab PO 1 mg DAILY ALEX Administration Furosemide 80 mg 02/14/20 14:00 02/14/20 14:13 Furosemide 100 Mg/10 Ml Vial SLOW IVP 80 mg 0600,1400 ALEX Administration Heparin Sodium (Porcine) 0 units 02/14/20 12:30 02/14/20 13:25 Heparin 10,000 Units/ 10 Ml Vial SLOW IVP 5,760 unit ASDIR ALEX Administration Protocol Ceftriaxone Sodium 1 gm/ 100 mls @ 200 mls/hr 02/14/20 09:00 02/14/20 09:32 Sodium Chloride IVPB 100 mls DAILY ALEX Administration Dextrose/Sodium Chloride 1,000 mls @ 40 mls/hr 02/13/20 17:15 02/13/20 17:52 D5 0.9% Ns IV 1,000 mls .Q24H ALEX Administration Linezolid 600 mg/ Device 300 mls @ 150 mls/hr 02/13/20 21:00 02/14/20 09:34 IVPB 300 mls Q12HR ALEX Administration Norepinephrine Bitartrate 250 mls @ 0 mls/hr 02/13/20 19:45 02/14/20 13:03 Levophed IVPB 250 mls INF ALEX Administration Protocol Titrate Heparin Sodium/Dextrose 500 mls @ 0 mls/hr 02/14/20 12:30 02/14/20 13:25 Heparin 25,000 Units/D5w IVPB 500 mls INF ALEX Administration Protocol Per Protocol Polyethylene Glycol 17 gm 02/13/20 21:00 02/14/20 10:29 Polyethylene Glycol 3350 17 Gm Packet PO Not Given BID ALEX Senna/Docusate Sodium 2 tab 02/13/20 21:00 02/14/20 10:30 Senokot S 8.6-50 Mg Tab PO Not Given BID ALEX - Exam General Appearance: awake alert ENT: normocephalic atraumatic ENT - other findings: bipap in place Neck - other findings: jvd noted Respiratory - other findings: bipap transmitted spund bilaterally Cardiovascular: RRR Gastrointestinal: soft, non-tender, non-distended, normal bowel sounds Gastrointestinal - other findings: vanessa cath in place draining some urine Extremities - other findings: marked bilateral leg edema Neurological: CN's grossly intact, no new deficit PSYCH: A&O x 3 Nephrology Results - Labs Result Diagrams: 02/15/20 03:39 02/15/20 03:39 Lab results: WBC 10.7 thou/uL (4.8-10.8) 02/14/20 03:43 Hgb 12.6 g/dL (12.0-16.0) 02/14/20 12:36 Hct 40.6 % (36.0-47.0) 02/14/20 12:36 MCV 102.0 fL (78.0-98.0) H 02/14/20 03:43 Plt Count 157 thou/uL (130-400) 02/14/20 12:36 Neutrophils % 91.2 % (42.0-75.0) H 02/13/20 09:54 Band Neuts % (Manual) 20 % (5-11) H 02/14/20 03:43 ABG pH 7.21 (7.35-7.45) L* 02/14/20 13:48 ABG pCO2 82.1 mmHg (35.0-45.0) H* 02/14/20 13:48 ABG pO2 215.9 mmHg (> 70.0) H 02/14/20 13:48 Sodium 138 mmol/L (136-145) 02/14/20 12:36 Potassium 5.0 mmol/L (3.5-5.1) 02/14/20 12:36 Chloride 94 mmol/L (98-107) L 02/14/20 12:36 Carbon Dioxide 30 mmol/L (23-31) 02/14/20 12:36 BUN 94 mg/dL (9.8-20.1) H 02/14/20 12:36 Creatinine 3.21 mg/dL (0.6-1.1) H 02/14/20 12:36 Glucose 125 mg/dL (83-110) H 02/14/20 12:36 Lactic Acid 2.0 mmol/L (0.5-2.2) 02/13/20 13:28 Calcium 9.2 mg/dL (7.8-10.44) 02/14/20 12:36 Total Bilirubin 0.8 mg/dL (0.2-1.2) 02/14/20 03:42 AST 98 U/L (5-34) H 02/14/20 03:42 ALT 68 U/L (8-55) H 02/14/20 03:42 Alkaline Phosphatase 111 U/L (40-110) H 02/14/20 03:42 CK-MB (CK-2) 3.3 ng/mL (0-6.6) 02/13/20 13:28 Troponin I 0.261 ng/mL (< 0.028) H 02/14/20 03:42 B-Natriuretic Peptide 2604.7 pg/mL (0-100) H 02/13/20 09:54 Serum Total Protein 6.8 g/dL (6.0-8.3) 02/14/20 03:42 Albumin 3.9 g/dL (3.4-4.8) 02/14/20 03:42 Urine Ketones Negative mg/dL (Negative) 02/13/20 10:24 Urine Blood 3+ (Negative) A 02/13/20 10:24 Urine Nitrite Negative (Negative) 02/13/20 10:24 Ur Leukocyte Esterase 500 Melanie/uL (Negative) A 02/13/20 10:24 Urine RBC 21-50 HPF (0-3) A 02/13/20 10:24 Urine WBC Greater than 50 HPF (0-3) A 02/13/20 10:24 Ur Squamous Epith Cells 0-3 HPF (0-3) 02/13/20 10:24 Urine Bacteria 4+ HPF (None Seen) A 02/13/20 10:24 Sodium 138 mmol/L (136-145) 02/14/20 12:36 Potassium 5.0 mmol/L (3.5-5.1) 02/14/20 12:36 Chloride 94 mmol/L (98-107) L 02/14/20 12:36 Carbon Dioxide 30 mmol/L (23-31) 02/14/20 12:36 Anion Gap 19 mmol/L (-20) 02/14/20 12:36 BUN 94 mg/dL (9.8-20.1) H 02/14/20 12:36 Creatinine 3.21 mg/dL (0.6-1.1) H 02/14/20 12:36 Glucose 125 mg/dL (83-110) H 02/14/20 12:36 Calcium 9.2 mg/dL (7.8-10.44) 02/14/20 12:36 Phosphorus 6.2 mg/dL (2.3-4.7) H 02/13/20 13:28 Magnesium 2.0 mg/dL (1.6-2.6) 02/14/20 03:42 Albumin 3.9 g/dL (3.4-4.8) 02/14/20 03:42 Nephrology AP PN - Plan Hyperkalemia: Most likely due to renal failure, potassium supplementation and shift related to acidosis. BENJAMIN: Due to hemodynamical factors related to circulatory shock. CKD stage 3 Acute on chronic right heart failure. PE is a concern. Also has valvular dysfunction. Anasarca: Either due to cardiac decompensation and/or hepatic pathology. Circulatory shoch/Hypotension: Due to cardiac decompensation and sepsis. has BENJAMIN and abnormal LFT. Acute respiratory failure with hypercarbia. Sepsis: 2/2 right lower extremity cellulitis and Urinary tract infection Abnormal liver function tests.Shock vs Cirrhosis. Presumed urinary tract infection. Diabetes mellitus, on metformin. Hx of Hypertension. Now hypotensive requiring pressors Pulmonary HTN Plan Medical treatment of hyperkalemia with albuterol, insulin/dextrose Diuretic therapy with lasix 80 and metolazone Also give 30g of kayexalste Will resort to HD for volume and Hyperkalemia treatment is not successful Agree with V/Q scan in view of right heart failure to rule in/out pulmonarry embolism Other treatments as per cardiology.
[2020-02-14] MEDS ORDERED: Metolazone 5 MG TAB PO SCH (16:30)
[2020-02-14] MEDS: Dextrose 5 % And 0.9 % NaCl 1,000 ML IV SCH (16:54)
--- NOTE | 2020-02-14 17:22 | PDOC.HOSPP ---
- Subjective Encounter Date: 02/14/20 Encounter Time: 08:30 Subjective: Patient seen and examined for congestive heart failure with BENJAMIN. Blood gases noted. Started on noninvasive positive pressure ventilation. - Objective Vital Signs & Weight: Vital Signs (12 hours) Temp Pulse Resp Pulse Ox 02/14/20 16:00 98.1 F 02/14/20 14:19 80 20 100 02/14/20 12:00 100 02/14/20 10:24 82 20 99 02/14/20 10:23 84 15 95 02/14/20 08:23 77 02/14/20 08:00 95 02/14/20 07:35 98.6 F Weight Admit Weight 164 lb 8.128 oz Weight 164 lb 8.128 oz Most Recent Monitor Data Heart Rate from ECG 81 NIBP 107/60 NIBP BP-Mean 75 Respiration from ECG 16 SpO2 97 I&O: 02/13/20 02/14/20 02/15/20 06:59 06:59 06:59 Intake Total 610 Output Total 605 Balance 5 Result Diagrams: 02/14/20 12:36 02/14/20 12:36 Additional Labs: Accuchecks 02/14/20 02/14/20 14:03 11:15 POC Glucose 97 103 H Abnormal Lab Results - Last 48 hrs 02/13/20 09:54: B-Natriuretic Peptide 2604.7 H 02/13/20 09:54: Sodium 133 L, Potassium 5.6 H, Chloride 93 L, Carbon Dioxide 32 H, BUN 83 H, Creatinine 2.77 H, AST 71 H, Alkaline Phosphatase 115 H, Albumin/Globulin Ratio 1.0 L 02/13/20 09:54: MCV 99.8 H, MCHC 30.6 L, RDW 15.0 H, Neutrophils % 91.2 H, Lymph ocytes % 5.4 L, Neutrophils # 7.5 H, Lymphocytes # 0.5 L 02/13/20 09:54: Lactic Acid 2.8 H 02/13/20 09:54: Troponin I 0.143 H 02/13/20 10:24: Urine Clarity Extra Turbid A, Urine Protein 300 A, Urine Blood 3+ A, Urine Urobilinogen 6 A, Ur Leukocyte Esterase 500 A, Urine RBC 21-50 A, Urine WBC Greater than 50 A, Amorphous Crystals 1+ A, Urine Bacteria 4+ A 02/13/20 10:24: U Random Total Protein 388 H, Urine Creatinine 139.26 H 02/13/20 13:28: Troponin I 0.177 H 02/13/20 13:28: Sodium 134 L, Potassium 5.9 H, Chloride 92 L, BUN 88 H, Creatinine 2.95 H 02/13/20 13:28: Phosphorus 6.2 H 02/13/20 15:51: Troponin I 0.207 H 02/13/20 19:00: Chloride 93 L, Carbon Dioxide 34 H, BUN 86 H, Creatinine 3.09 H 02/14/20 03:42: Sodium 134 L, Potassium 6.3 H, Chloride 94 L, Anion Gap 22 H, BUN 95 H, Creatinine 3.11 H, AST 98 H, ALT 68 H, Alkaline Phosphatase 111 H 02/14/20 03:42: Troponin I 0.261 H 02/14/20 03:42: Folate 4.10 L 02/14/20 03:43: MCV 102.0 H, MCH 31.1 H, MCHC 30.6 L, RDW 15.1 H, MPV 10.5 H, Neutrophils % (Manual) 76 H, Band Neuts % (Manual) 20 H, Lymphocytes % (Manual) 1 L, Elliptocytes MODERATE= 6-15 cells H 02/14/20 08:04: Bicarbonate Actual 30.8 H, ABG pH 7.19 L*, ABG pCO2 82.0 H*, ABG pO2 86.6 H, ABG Deoxyhemoglobin 3.9 H, Sodium 133 L, Potassium 5.45 H, Chloride 93 L 02/14/20 10:18: Bicarbonate Actual 30.9 H, ABG pH 7.23 L*, ABG pCO2 74.9 H*, ABG pO2 76.3 H, ABG O2 Content 17.2 L, ABG Deoxyhemoglobin 4.9 H, A-a O2 Gradient 43.975 H, Chloride 93 L 02/14/20 12:36: Chloride 94 L, BUN 94 H, Creatinine 3.21 H 02/14/20 12:36: APTT 38.8 H 02/14/20 13:48: Bicarbonate Actual 32.2 H, ABG pH 7.21 L*, ABG pCO2 82.1 H*, ABG pO2 215.9 H, ABG O2 Sat (Measured) 99.6 H, ABG Oxyhemoglobin 98.8 H, A-a O2 Gradient 394.475 H, Chloride 94 L Microbiology - Entire Visit 02/13/20 10:36 Venous blood - Left Hand Blood Culture - Preliminary Specimen has been received and culture in progress. No Growth to date. 02/13/20 10:36 Venous blood - Right Hand Blood Culture - Preliminary Specimen has been received and culture in progress. No Growth to date. Radiology Reviewed by me: Yes (Chest x-rayno new infiltrate) EKG Reviewed by me: Yes (Sinus rhythm on telemetry) Hospitalist ROS - Review of Systems ROS unobtainable: due to mental status - Medication Medications: Active Medications Generic Name Dose Route Start Last Admin Trade Name Freq PRN Reason Stop Dose Admin Albumin Human 25 gm 02/13/20 22:00 02/14/20 14:13 Albumin 25% 25 Gm/100 Ml Bot IVPB 02/14/20 22:01 25 gm Q8HR ALEX Administration Albuterol Sulfate 2.5 mg 02/14/20 10:30 02/14/20 14:19 Albuterol Sulfate 2.5 Mg/3 Ml Neb NEB 2.5 mg [id number]-MI ALEX Administration Aspirin 300 mg 02/13/20 21:00 02/14/20 07:33 Aspirin 300 Mg Suppository [place] Not Given 2100 ALEX Bisacodyl 10 mg 02/14/20 09:00 02/14/20 10:30 Bisacodyl 10 Mg Supp [place] Not Given DAILY ALEX Famotidine 20 mg 02/13/20 21:00 02/14/20 09:33 Famotidine/Pf 20 Mg/2ml Vial SLOW IVP 20 mg Q12HR ALEX Administration Folic Acid 1 mg 02/14/20 09:00 02/14/20 10:30 Folic Acid 1 Mg Tab PO 1 mg DAILY ALEX Administration Furosemide 80 mg 02/14/20 14:00 02/14/20 14:13 Furosemide 100 Mg/10 Ml Vial SLOW IVP 80 mg 0600,1400 ALEX Administration Heparin Sodium (Porcine) 0 units 02/14/20 12:30 02/14/20 13:25 Heparin 10,000 Units/ 10 Ml Vial SLOW IVP 5,760 unit ASDIR ALEX Administration Protocol Ceftriaxone Sodium 1 gm/ 100 mls @ 200 mls/hr 02/14/20 09:00 02/14/20 09:32 Sodium Chloride IVPB 100 mls DAILY ALEX Administration Dextrose/Sodium Chloride 1,000 mls @ 40 mls/hr 02/13/20 17:15 02/14/20 16:54 D5 0.9% Ns IV Not Given .Q24H ALEX Linezolid 600 mg/ Device 300 mls @ 150 mls/hr 02/13/20 21:00 02/14/20 09:34 IVPB 300 mls Q12HR ALEX Administration Norepinephrine Bitartrate 250 mls @ 0 mls/hr 02/13/20 19:45 02/14/20 13:03 Levophed IVPB 250 mls INF ALEX Administration Protocol Titrate Heparin Sodium/Dextrose 500 mls @ 0 mls/hr 02/14/20 12:30 02/14/20 13:25 Heparin 25,000 Units/D5w IVPB 500 mls INF ALEX Administration Protocol Per Protocol Metolazone 5 mg 02/14/20 16:30 02/14/20 16:57 Metolazone 5 Mg Tab PO 02/14/20 19:00 5 mg NOW ALEX Administration Polyethylene Glycol 17 gm 02/13/20 21:00 02/14/20 10:29 Polyethylene Glycol 3350 17 Gm Packet PO Not Given BID ALEX Senna/Docusate Sodium 2 tab 02/13/20 21:00 02/14/20 10:30 Senokot S 8.6-50 Mg Tab PO Not Given BID ALEX - Exam General Appearance: ill appearing General - other findings: On noninvasive positive pressure ventilation Heart: RRR, no gallops, no rubs, normal peripheral pulses Respiratory: normal chest expansion, rales, rhonchi, tachypneic Gastrointestinal: soft, normal bowel sounds, no guarding, no rigidity Extremities: no cyanosis, no clubbing, 2+ LE edema Skin: normal turgor Neurological - other findings: Neuro/psych exam limited due to current mentation Psychiatric: somnolent Hosp A/P - Plan DVT proph w/heparin 1. Generalized weakness/Toxic metabolic encephalopathy, multifactorial. 2. Acute hypoxic and hypercapnic respiratory failure 3. Acute on chronic right-sided congestive heart failure exacerbation due to suspected pulmonary embolism. 4. Acute kidney injury on chronic kidney disease stage 2. 5. Lactic acidosis. 6. Hyponatremia/hyperkalemia. 7. Type 2 myocardial infarction. 8. Sepsis due to urinary tract infection -POA. 9. Macrocytosis. 10. Constipation. 11. Gastroesophageal reflux disease. 12. Diabetes mellitus type 2. 13. Chronic pain syndrome. 14. Chronic insomnia. PLAN: Continue critical care monitoring. Case discussed with pulmonary, cardiology and nephrology. Started on noninvasive positive pressure ventilation. The patient's son and daughter updated. Echocardiogram reviewed. Continue empiric antibiotics. Treat hyperkalemia with insulin/dextrose with albuterol nebulization and Kayexalate. Continue IV fluids at KVO. IV Lasix restarted. Monitor labs closely. Recheck ABGs later today. Continue sliding scale. Started on anticoagulation for presumed venous thromboembolism.
[2020-02-14] MEDS: Insulin Regular 300 UNITS/3 ML VIAL SC PRN (18:09)
[2020-02-14 18:34] LABS: Anion Gap 18 mmol/L (10-20); BUN (Urea Nitrogen) 96 mg/dL (9.8-20.1); Calc. Creatinine Clearance 17 mL/min (70-130); Calcium 9.1 mg/dL (7.8-10.44); Carbon Dioxide 31 mmol/L (23-31); Chloride 93 mmol/L (98-107); Estimated GFR-MDRD 14; Glucose 183 mg/dL (83-110); Potassium 4.4 mmol/L (3.5-5.1); Sodium 138 mmol/L (136-145)
[2020-02-14 18:39] LABS: PTT Greater than 250.0 sec (22.9-36.1)
[2020-02-14 21:35] LABS: PTT 168.2 sec (22.9-36.1)
[2020-02-15] MEDS: Albuterol Sulfate 2.5 mg/3 ml Neb NEB SCH ×6 (03:56→23:56)
[2020-02-15 04:05] LABS: Band 14 % (5-11); Lymphocytes 4 % (21-51); MDiff Complete? YES; Mean Corpuscular HGB CONC 31.3 g/dL (32.0-36.0); Mean Corpuscular Hemoglobin 30.4 pg (27.0-31.0); Mean Corpuscular Volume 97.1 fL (78.0-98.0); Mean Platelet Volume 9.8 fL (7.4-10.4); Monocytes 7 % (0-10); Neutrophil 75 % (42-75); Platelet Count 145 thou/uL (130-400); RBC Distribution Width 14.6 % (11.5-14.5); Red Blood Cell (RBC) Count 3.62 mill/uL (4.20-5.40); White Blood Cell (WBC) Count 7.8 thou/uL (4.8-10.8)
[2020-02-15 04:11] LABS: ALT (SGPT) 114 U/L (8-55); AST (SGOT) 149 U/L (5-34); Alkaline Phosphatase 84 U/L (40-110); Anion Gap 16 mmol/L (10-20); BUN (Urea Nitrogen) 94 mg/dL (9.8-20.1); Bilirubin, Total 0.5 mg/dL (0.2-1.2); Calc. Creatinine Clearance 18 mL/min (70-130); Carbon Dioxide 34 mmol/L (23-31); Chloride 93 mmol/L (98-107); Estimated GFR-MDRD 15; Globulin 2.4 g/dL (2.4-3.5); Glucose 106 mg/dL (83-110); Potassium 3.8 mmol/L (3.5-5.1); Protein, Total 6.4 g/dL (6.0-8.3); Sodium 139 mmol/L (136-145)
[2020-02-15] MEDS: Furosemide 100 MG/10 ML VIAL SLOW IVP SCH ×2 (05:51→20:38)
[2020-02-15 06:19] LABS: PTT 162.9 sec (22.9-36.1)
[2020-02-15 07:31] LABS: Actual Bicarbonate (HCO3a) 33.1 mEq/L (22-28); Base Excess (BEa) 7.3 mEq/L (-2.0 to +3.0); CO2 Tension 51.5 mmHg (35.0-45.0); Calcium, Ionized (arterial) 1.09 mmol/L (1.12-1.30); Carboxyhemoglobin (COHb) 0.8 gm% (0.0-3.0); Hemoglobin (Hb) 13.5 g/dL (12.0-16.0); Potassium - ABG Lab 3.61 mmol/L (3.70-5.30); pH, Arterial 7.43 (7.35-7.45)
[2020-02-15 07:55] LABS: O2 Tension (PaO2), arterial 59.3 mmHg (> 70.0); Puncture Site RBRACH
[2020-02-15 07:56] LABS: ALV-art Gradient 90.225 mmHg (0-20)
[2020-02-15] MEDS: Folic Acid 1 MG TAB PO SCH (09:05)
[2020-02-15] MEDS: Famotidine/PF 20 mg/2ml Vial SLOW IVP SCH (09:14)
[2020-02-15] MEDS: cefTRIAXone\\ROCEPHIN 1 GM in Sodium Chloride 0.9% 100 ML IVPB SCH (09:14)
[2020-02-15] MEDS ORDERED: Metolazone 5 MG TAB PO SCH (09:15)
[2020-02-15] MEDS: Linezolid 600 MG in Premix Bag 1 BAG IVPB SCH (09:15)
[2020-02-15] MEDS: Bisacodyl 10 MG SUPP PR SCH (09:15)
[2020-02-15] MEDS: Polyethylene Glycol 3350 17 GM Packet PO SCH ×2 (09:42→20:30)
[2020-02-15] MEDS: Senokot S 8.6-50 MG TAB PO SCH ×2 (09:42→20:30)
--- NOTE | 2020-02-15 10:37 | PRG ---
DATE OF SERVICE: 02/15/2020 SUBJECTIVE: Ms. Humphreys looks much better today compared to yesterday. She is off the BiPAP. She is speaking with a speech therapist. OBJECTIVE: VITAL SIGNS: Temperature 97.9, pulse 80, blood pressure 106/54, O2 saturation 97%. HEENT: Unremarkable. NECK: No adenopathy or JVD. LUNGS: Fairly clear. CARDIAC: S1 and S2. Regular. ABDOMEN: Soft. EXTREMITIES: No edema. LABORATORY DATA: White blood cell count 7.8, hematocrit 35.2, and platelet count 145. PH is 7.43, pCO2 of 51, pO2 of 59, that was on BiPAP 14/5. Sodium 139, potassium 3.8, chloride 93, CO2 of 34, BUN 94, creatinine 3.0, and glucose 106. ASSESSMENT: 1. Urosepsis. 2. Acute diastolic heart dysfunction. 3. Acute respiratory failure. PLAN: 1. So far, she looks good off the BiPAP. She is continuing broad-spectrum IV antibiotic therapy. I would be very cautious about using linezolid because that is a huge volume load with each dose and she may not be able to handle it with her diastolic heart failure. 2. Wean off norepinephrine as tolerated. 3. Continue heparin drip per Cardiology. Job ID: [id number]
--- NOTE | 2020-02-15 11:57 | PDOC.NEPPN ---
- Subjective Encounter Date: 02/15/20 Encounter Time: 10:57 - Objective Vital Signs & Weight: Vital Signs (12 hours) Temp Pulse Resp Pulse Ox 02/15/20 10:27 87 23 H 100 02/15/20 08:00 98.9 F 100 02/15/20 07:53 80 02/15/20 07:10 80 20 97 02/15/20 04:00 97.9 F 02/15/20 03:58 78 02/15/20 03:56 98 02/15/20 00:00 97.7 F Weight Admit Weight 164 lb 8.128 oz Weight 161 lb 9.581 oz Most Recent Monitor Data Heart Rate from ECG 89 NIBP 97/54 NIBP BP-Mean 68 Respiration from ECG 22 SpO2 99 I&O: 02/14/20 02/15/20 02/16/20 06:59 06:59 06:59 Intake Total 1965 120 Output Total 2290 1601 Balance -325 -8901 Result Diagrams: 02/15/20 03:39 02/15/20 03:39 Additional Labs: Accuchecks 02/15/20 02/14/20 02/14/20 05:41 23:24 18:12 POC Glucose 95 123 H 274 H 02/14/20 14:03 POC Glucose 97 Nephrology ROS - Medication Medications: Active Medications Generic Name Dose Route Start Last Admin Trade Name Freq PRN Reason Stop Dose Admin Albuterol Sulfate 2.5 mg 02/14/20 10:30 02/15/20 10:27 Albuterol Sulfate 2.5 Mg/3 Ml Neb NEB 2.5 mg [id number] ALEX Administration Aspirin 300 mg 02/13/20 21:00 02/14/20 20:36 Aspirin 300 Mg Suppository NC 300 mg 2100 ALEX Administration Bisacodyl 10 mg 02/14/20 09:00 02/15/20 09:15 Bisacodyl 10 Mg Supp NC Not Given DAILY ALEX Famotidine 20 mg 02/13/20 21:00 02/15/20 09:14 Famotidine/Pf 20 Mg/2ml Vial SLOW IVP 20 mg Q12HR ALEX Administration Folic Acid 1 mg 02/14/20 09:00 02/15/20 09:05 Folic Acid 1 Mg Tab PO 1 mg DAILY ALEX Administration Heparin Sodium (Porcine) 0 units 02/14/20 12:30 02/14/20 13:25 Heparin 10,000 Units/ 10 Ml Vial SLOW IVP 5,760 unit ASDIR ALEX Administration Protocol Ceftriaxone Sodium 1 gm/ 100 mls @ 200 mls/hr 02/14/20 09:00 02/15/20 09:14 Sodium Chloride IVPB 100 mls DAILY ALEX Administration Linezolid 600 mg/ Device 300 mls @ 150 mls/hr 02/13/20 21:00 02/15/20 09:15 IVPB 300 mls Q12HR ALEX Administration Norepinephrine Bitartrate 250 mls @ 0 mls/hr 02/13/20 19:45 02/14/20 13:03 Levophed IVPB 250 mls INF ALEX Administration Protocol Titrate Heparin Sodium/Dextrose 500 mls @ 0 mls/hr 02/14/20 12:30 02/14/20 13:25 Heparin 25,000 Units/D5w IVPB 500 mls INF ALEX Administration Protocol Per Protocol Insulin Human Regular 0 units 02/13/20 17:05 02/14/20 18:09 Insulin Regular 300 Units/3 Ml Vial SC 4 unit .MILD SLIDING SCALE PRN Administration Mild Correctional Scale Polyethylene Glycol 17 gm 02/13/20 21:00 02/15/20 09:42 Polyethylene Glycol 3350 17 Gm Packet PO Not Given BID ALEX Senna/Docusate Sodium 2 tab 02/13/20 21:00 02/15/20 09:42 Senokot S 8.6-50 Mg Tab PO Not Given BID [facility] Nephrology Results - Labs Result Diagrams: 02/15/20 03:39 02/15/20 03:39 Lab results: WBC 7.8 thou/uL (4.8-10.8) 02/15/20 03:39 Hgb 11.0 g/dL (12.0-16.0) L 02/15/20 03:39 Hct 35.2 % (36.0-47.0) L 02/15/20 03:39 MCV 97.1 fL (78.0-98.0) 02/15/20 03:39 Plt Count 145 thou/uL (130-400) 02/15/20 03:39 Neutrophils % 91.2 % (42.0-75.0) H 02/13/20 09:54 Band Neuts % (Manual) 14 % (5-11) H 02/15/20 03:39 ABG pH 7.43 (7.35-7.45) 02/15/20 07:24 ABG pCO2 51.5 mmHg (35.0-45.0) H 02/15/20 07:24 ABG pO2 59.3 mmHg (> 70.0) L* 02/15/20 07:24 Sodium 139 mmol/L (136-145) 02/15/20 03:39 Potassium 3.8 mmol/L (3.5-5.1) 02/15/20 03:39 Chloride 93 mmol/L (98-107) L 02/15/20 03:39 Carbon Dioxide 34 mmol/L (23-31) H 02/15/20 03:39 BUN 94 mg/dL (9.8-20.1) H 02/15/20 03:39 Creatinine 3.05 mg/dL (0.6-1.1) H 02/15/20 03:39 Glucose 106 mg/dL (83-110) 02/15/20 03:39 Lactic Acid 2.0 mmol/L (0.5-2.2) 02/13/20 13:28 Calcium 9.0 mg/dL (7.8-10.44) 02/15/20 03:39 Total Bilirubin 0.5 mg/dL (0.2-1.2) 02/15/20 03:39 AST 149 U/L (5-34) H 02/15/20 03:39 ALT 114 U/L (8-55) H 02/15/20 03:39 Alkaline Phosphatase 84 U/L (40-110) 02/15/20 03:39 CK-MB (CK-2) 3.3 ng/mL (0-6.6) 02/13/20 13:28 Troponin I 0.261 ng/mL (< 0.028) H 02/14/20 03:42 B-Natriuretic Peptide 2604.7 pg/mL (0-100) H 02/13/20 09:54 Serum Total Protein 6.4 g/dL (6.0-8.3) 02/15/20 03:39 Albumin 4.0 g/dL (3.4-4.8) 02/15/20 03:39 Urine Ketones Negative mg/dL (Negative) 02/13/20 10:24 Urine Blood 3+ (Negative) A 02/13/20 10:24 Urine Nitrite Negative (Negative) 02/13/20 10:24 Ur Leukocyte Esterase 500 Melanie/uL (Negative) A 02/13/20 10:24 Urine RBC 21-50 HPF (0-3) A 02/13/20 10:24 Urine WBC Greater than 50 HPF (0-3) A 02/13/20 10:24 Ur Squamous Epith Cells 0-3 HPF (0-3) 02/13/20 10:24 Urine Bacteria 4+ HPF (None Seen) A 02/13/20 10:24 Sodium 139 mmol/L (136-145) 02/15/20 03:39 Potassium 3.8 mmol/L (3.5-5.1) 02/15/20 03:39 Chloride 93 mmol/L (98-107) L 02/15/20 03:39 Carbon Dioxide 34 mmol/L (23-31) H 02/15/20 03:39 Anion Gap 16 mmol/L (-) 02/15/20 03:39 BUN 94 mg/dL (9.8-20.1) H 02/15/20 03:39 Creatinine 3.05 mg/dL (0.6-1.1) H 02/15/20 03:39 Glucose 106 mg/dL (83-110) 02/15/20 03:39 Calcium 9.0 mg/dL (7.8-10.44) 02/15/20 03:39 Phosphorus 6.2 mg/dL (2.3-4.7) H 02/13/20 13:28 Magnesium 2.0 mg/dL (1.6-2.6) 02/14/20 03:42 Albumin 4.0 g/dL (3.4-4.8) 02/15/20 03:39 Nephrology AP PN - Plan lasix 80 albumin kayexalste if agressive diuresis is not success, will resolrt to hd. agree with V/Q scan in view of right heart failure and moderate mitrat reurgit aiom possible pulmonarry e,mbolism mauy have to start anticoagulation pulmonary htn
--- NOTE | 2020-02-15 14:51 | PDOC.CPN ---
- Subjective Date: 02/15/20 Time: 14:49 Interval history: She is doing much much better today. She is eating without issues and is conversant. - Review of Systems ROS unobtainable: due to mental status - Objective Allergies/Adverse Reactions: Allergies Allergy/AdvReac Type Severity Reaction Status Date / Time codeine Allergy Verified 07/14/19 16:38 Visit Medications: Current Medications Acetaminophen (Acetaminophen 325 Mg Tab) 650 mg PO Q4H PRN PRN Reason: Headache/Fever/Mild Pain (1-3) Acetaminophen (Acetaminophen 650 Mg Suppository) 650 mg PA Q4H PRN PRN Reason: Headache/Fever/Mild Pain (1-3) Albuterol Sulfate (Albuterol Sulfate 2.5 Mg/3 Ml Neb) 2.5 mg NEB [id number] [facility] Last Admin: 02/15/20 14:32 Dose: 2.5 mg Documented by: Aspirin (Aspirin 300 Mg Suppository) 300 mg PA 2100 [facility] Last Admin: 02/14/20 20:36 Dose: 300 mg Documented by: Bisacodyl (Bisacodyl 10 Mg Supp) 10 mg PA DAILYPRN PRN PRN Reason: Constipation Bisacodyl (Bisacodyl 10 Mg Supp) 10 mg PA DAILY [facility] Last Admin: 02/15/20 09:15 Dose: Not Given Documented by: Dextrose/Water (Dextrose 50% Abboject 50 Ml Syringe) 25 gm SLOW IVP PRN PRN PRN Reason: Hypoglycemia Doxycycline Hyclate (Doxycycline 100 Mg Cap) 100 mg PO BID [facility] Famotidine (Famotidine 20 Mg Tab) 20 mg PO DAILY [facility] Folic Acid (Folic Acid 1 Mg Tab) 1 mg PO DAILY [facility] Last Admin: 02/15/20 09:05 Dose: 1 mg Documented by: Furosemide (Furosemide 100 Mg/10 Ml Vial) 80 mg SLOW IVP BID [facility] Glucagon (Glucagon 1 Mg/Ml Vial) 1 mg IM PRN PRN PRN Reason: Hypoglycemia Heparin Sodium (Porcine) (Heparin 10,000 Units/ 10 Ml Vial) 0 units SLOW IVP ASDIR [facility]; Protocol Last Admin: 02/14/20 13:25 Dose: 5,760 unit Documented by: Dextrose/Water (D5w) 1,000 mls @ 0 mls/hr IV .Q0M PRN PRN Reason: Hypoglycemia Norepinephrine Bitartrate (Levophed) 250 mls @ 0 mls/hr IVPB INF ALEX; Protocol Last Admin: 02/14/20 13:03 Dose: 250 mls Documented by: Heparin Sodium/Dextrose (Heparin 25,000 Units/D5w) 500 mls @ 0 mls/hr IVPB INF ALEX; Protocol Last Admin: 02/14/20 13:25 Dose: 500 mls Documented by: Cefepime HCl 0.5 gm/Miscellaneous Medication 1 each/ Sodium Chloride 100 mls @ 200 mls/hr IVPB 2100 ALEX Insulin Human Regular (Insulin Regular 300 Units/3 Ml Vial) 0 units SC .MILD SLIDING SCALE PRN PRN Reason: Mild Correctional Scale Last Admin: 02/14/20 18:09 Dose: 4 unit Documented by: Metolazone (Metolazone 5 Mg Tab) 5 mg PO 0830 ALEX Pneumococcal Polyvalent Vaccine (Pneumococcal 23 "Pneumovax" 0.5 Ml Vial) 0.5 ml IM .ONCE ONE Stop: 02/15/20 17:16 Polyethylene Glycol (Polyethylene Glycol 3350 17 Gm Packet) 17 gm PO BID ALEX Last Admin: 02/15/20 09:42 Dose: Not Given Documented by: Senna/Docusate Sodium (Senokot S 8.6-50 Mg Tab) 2 tab PO BID ALEX Last Admin: 02/15/20 09:42 Dose: Not Given Documented by: Sodium Chloride (Flush - Normal Saline 10 Ml Syringe) 10 ml IVF Q12HR ALEX Sodium Chloride (Flush - Normal Saline 10 Ml Syringe) 10 ml IVF PRN PRN PRN Reason: Saline Flush Vital Signs & Weight: Vital Signs Temp Pulse Pulse Pulse Resp BP BP 02/15/20 14:32 131 H 22 H 02/15/20 10:27 87 23 H 02/15/20 09:20 90 91 102/55 L 92/50 L 02/15/20 08:00 98.9 F 02/15/20 07:53 80 02/15/20 07:10 80 20 02/15/20 04:00 97.9 F 02/15/20 03:58 78 02/15/20 03:56 Pulse Ox Pulse Ox Pulse Ox 02/15/20 14:32 97 02/15/20 10:27 100 02/15/20 09:20 99 98 02/15/20 08:00 100 02/15/20 07:53 02/15/20 07:10 97 02/15/20 04:00 02/15/20 03:58 02/15/20 03:56 98 Admit Weight 164 lb 8.128 oz Weight 161 lb 9.581 oz - Physical Exam General: no apparent distress HEENT: normocephaly Neck: supple neck Cardiac: regular rate and rhythm Lungs: normal breath sounds Neuro: no lateralizing findings Abdomen: active bowel sounds Extremities: 2+ LE edema Skin: clear Musculoskeletal: no pain - Labs Result Diagrams: 02/15/20 03:39 02/15/20 03:39 Troponin/CKMB CK-MB (CK-2) 3.3 ng/mL (0-6.6) 02/13/20 13:28 Troponin I 0.261 ng/mL (< 0.028) H 02/14/20 03:42 - Telemetry Sinus rhythms and dysrhythmias: sinus rhythm - Assessment/Plan Assessment/Plan: 1. Acute RV failure 2. Hypotension 3. BENJAMIN on CKD 4. Possible Sepsis 5. Hyperkalemia 6. Possible liver cirrhosis. PLAN: - She had significant improvement from last night. Likely her main issue was UTI sepsis. - Diuresing well. Continue IV lasix. - She has weaned off levophed as well. - May transfer to [facility].
[2020-02-15 14:52] LABS: PTT 170.5 sec (22.9-36.1)
--- NOTE | 2020-02-15 16:10 | PDOC.NEPPN ---
- Subjective Encounter Date: 02/15/20 Subjective: Seen in follow up renal failure and hyperkalemia. Feeling better. urine output has improved greatly. Off pressors. - Objective Vital Signs & Weight: Vital Signs (12 hours) Temp Pulse Pulse Pulse Resp BP BP 02/15/20 15:24 97.5 F L 02/15/20 14:32 131 H 22 H 02/15/20 10:27 87 23 H 02/15/20 09:20 90 91 102/55 L 92/50 L 02/15/20 08:00 98.9 F 02/15/20 07:53 80 02/15/20 07:10 80 20 Pulse Ox Pulse Ox Pulse Ox 02/15/20 15:24 02/15/20 14:32 97 02/15/20 10:27 100 02/15/20 09:20 99 98 02/15/20 08:00 100 02/15/20 07:53 02/15/20 07:10 97 Weight Admit Weight 164 lb 8.128 oz Weight 161 lb 9.581 oz Most Recent Monitor Data Heart Rate from ECG 111 NIBP 92/61 NIBP BP-Mean 71 Respiration from ECG 22 SpO2 98 I&O: 02/14/20 02/15/20 02/16/20 06:59 06:59 06:59 Intake Total 1965 120 Output Total 2290 1601 Balance -325 -1481 Result Diagrams: 02/15/20 03:39 02/15/20 03:39 Additional Labs: Accuchecks 02/15/20 02/14/20 02/14/20 05:41 23:24 18:12 POC Glucose 95 123 H 274 H Nephrology ROS - Medication Medications: Active Medications Generic Name Dose Route Start Last Admin Trade Name Freq PRN Reason Stop Dose Admin Albuterol Sulfate 2.5 mg 02/14/20 10:30 02/15/20 14:32 Albuterol Sulfate 2.5 Mg/3 Ml Neb NEB 2.5 mg [id number] ALEX Administration Aspirin 300 mg 02/13/20 21:00 02/14/20 20:36 Aspirin 300 Mg Suppository UT 300 mg 2100 ALEX Administration Bisacodyl 10 mg 02/14/20 09:00 02/15/20 09:15 Bisacodyl 10 Mg Supp UT Not Given DAILY ALEX Folic Acid 1 mg 02/14/20 09:00 02/15/20 09:05 Folic Acid 1 Mg Tab PO 1 mg DAILY ALEX Administration Norepinephrine Bitartrate 250 mls @ 0 mls/hr 02/13/20 19:45 02/14/20 13:03 Levophed IVPB 250 mls INF ALEX Administration Protocol Titrate Insulin Human Regular 0 units 02/13/20 17:05 02/14/20 18:09 Insulin Regular 300 Units/3 Ml Vial SC 4 unit .MILD SLIDING SCALE PRN Administration Mild Correctional Scale Polyethylene Glycol 17 gm 02/13/20 21:00 02/15/20 09:42 Polyethylene Glycol 3350 17 Gm Packet PO Not Given BID ALEX Senna/Docusate Sodium 2 tab 02/13/20 21:00 02/15/20 09:42 Senokot S 8.6-50 Mg Tab PO Not Given BID ALEX - Exam General Appearance: awake alert General - other findings: chronically ill looking. afebrile. ENT: normocephalic atraumatic Respiratory - other findings: Fair air entry bilaterally with some crackles and transmitted sound. Cardiovascular: RRR Gastrointestinal: soft, non-tender, non-distended, normal bowel sounds Extremities: 2+ LE edema Neurological: CN's grossly intact PSYCH: A&O x 3 Nephrology Results - Labs Result Diagrams: 02/15/20 03:39 02/15/20 03:39 Lab results: WBC 7.8 thou/uL (4.8-10.8) 02/15/20 03:39 Hgb 11.0 g/dL (12.0-16.0) L 02/15/20 03:39 Hct 35.2 % (36.0-47.0) L 02/15/20 03:39 MCV 97.1 fL (78.0-98.0) 02/15/20 03:39 Plt Count 145 thou/uL (130-400) 02/15/20 03:39 Neutrophils % 91.2 % (42.0-75.0) H 02/13/20 09:54 Band Neuts % (Manual) 14 % (5-11) H 02/15/20 03:39 ABG pH 7.43 (7.35-7.45) 02/15/20 07:24 ABG pCO2 51.5 mmHg (35.0-45.0) H 02/15/20 07:24 ABG pO2 59.3 mmHg (> 70.0) L* 02/15/20 07:24 Sodium 139 mmol/L (136-145) 02/15/20 03:39 Potassium 3.8 mmol/L (3.5-5.1) 02/15/20 03:39 Chloride 93 mmol/L (98-107) L 02/15/20 03:39 Carbon Dioxide 34 mmol/L (23-31) H 02/15/20 03:39 BUN 94 mg/dL (9.8-20.1) H 02/15/20 03:39 Creatinine 3.05 mg/dL (0.6-1.1) H 02/15/20 03:39 Glucose 106 mg/dL (83-110) 02/15/20 03:39 Lactic Acid 2.0 mmol/L (0.5-2.2) 02/13/20 13:28 Calcium 9.0 mg/dL (7.8-10.44) 02/15/20 03:39 Total Bilirubin 0.5 mg/dL (0.2-1.2) 02/15/20 03:39 AST 149 U/L (5-34) H 02/15/20 03:39 ALT 114 U/L (8-55) H 02/15/20 03:39 Alkaline Phosphatase 84 U/L (40-110) 02/15/20 03:39 CK-MB (CK-2) 3.3 ng/mL (0-6.6) 02/13/20 13:28 Troponin I 0.261 ng/mL (< 0.028) H 02/14/20 03:42 B-Natriuretic Peptide 2604.7 pg/mL (0-100) H 02/13/20 09:54 Serum Total Protein 6.4 g/dL (6.0-8.3) 02/15/20 03:39 Albumin 4.0 g/dL (3.4-4.8) 02/15/20 03:39 Urine Ketones Negative mg/dL (Negative) 02/13/20 10:24 Urine Blood 3+ (Negative) A 02/13/20 10:24 Urine Nitrite Negative (Negative) 02/13/20 10:24 Ur Leukocyte Esterase 500 Melanie/uL (Negative) A 02/13/20 10:24 Urine RBC 21-50 HPF (0-3) A 02/13/20 10:24 Urine WBC Greater than 50 HPF (0-3) A 02/13/20 10:24 Ur Squamous Epith Cells 0-3 HPF (0-3) 02/13/20 10:24 Urine Bacteria 4+ HPF (None Seen) A 02/13/20 10:24 Sodium 139 mmol/L (136-145) 02/15/20 03:39 Potassium 3.8 mmol/L (3.5-5.1) 02/15/20 03:39 Chloride 93 mmol/L (98-107) L 02/15/20 03:39 Carbon Dioxide 34 mmol/L (23-31) H 02/15/20 03:39 Anion Gap 16 mmol/L (-) 02/15/20 03:39 BUN 94 mg/dL (9.8-20.1) H 02/15/20 03:39 Creatinine 3.05 mg/dL (0.6-1.1) H 02/15/20 03:39 Glucose 106 mg/dL (83-110) 02/15/20 03:39 Calcium 9.0 mg/dL (7.8-10.44) 02/15/20 03:39 Phosphorus 6.2 mg/dL (2.3-4.7) H 02/13/20 13:28 Magnesium 2.0 mg/dL (1.6-2.6) 02/14/20 03:42 Albumin 4.0 g/dL (3.4-4.8) 02/15/20 03:39 Nephrology AP PN - Plan BENJAMIN: Due to hemodynamical factors related to circulatory shock. Creat is marginal down with diuresis and improvement of hemodynamics. ?Cardiorenal. CKD stage 3 Hyperkalemia: Most likely due to renal failure, potassium supplementation and shift related to acidosis. Resolved. Acidosis: metabolic and respiratory. Improved. Acute on chronic right heart failure. PE is a concern. Also has valvular dysfunction. Anasarca: Either due to cardiac decompensation and/or hepatic pathology. Circulatory shoch/Hypotension: Due to cardiac decompensation and sepsis. has BENJAMIN and abnormal LFT. Improved. off pressor. Acute respiratory failure with hypercarbia. Sepsis: 2/2 right lower extremity cellulitis and Urinary tract infection Abnormal liver function tests.Shock vs Cirrhosis. Presumed urinary tract infection. Diabetes mellitus, on metformin. Pulmonary HTN Plan Continue diuresis with lasix and metolazone. Monitor renal function and electrolytes. Other treatments as per cardiology.
--- NOTE | 2020-02-15 16:48 | PDOC.HOSPP ---
- Subjective Encounter Date: 02/15/20 Encounter Time: 09:30 Subjective: Patient seen and examined for sepsis/CHF exacerbation. Required noninvasive positive pressure ventilation overnight. Mentation improving. Diuresing well per RN. Had some short run of nonsustained ventricular tachycardia earlier. - Objective Vital Signs & Weight: Vital Signs (12 hours) Temp Pulse Pulse Pulse Resp BP BP 02/15/20 15:24 97.5 F L 02/15/20 14:32 131 H 22 H 02/15/20 10:27 87 23 H 02/15/20 09:20 90 91 102/55 L 92/50 L 02/15/20 08:00 98.9 F 02/15/20 07:53 80 02/15/20 07:10 80 20 Pulse Ox Pulse Ox Pulse Ox 02/15/20 15:24 02/15/20 14:32 97 02/15/20 10:27 100 02/15/20 09:20 99 98 02/15/20 08:00 100 02/15/20 07:53 02/15/20 07:10 97 Weight Admit Weight 164 lb 8.128 oz Weight 161 lb 9.581 oz Most Recent Monitor Data Heart Rate from ECG 88 NIBP 110/53 NIBP BP-Mean 72 Respiration from ECG 21 SpO2 96 I&O: 02/14/20 02/15/20 02/16/20 06:59 06:59 06:59 Intake Total 1965 120 Output Total 2290 1601 Balance -325 -4481 Result Diagrams: 02/15/20 03:39 02/15/20 03:39 Additional Labs: Accuchecks 02/15/20 02/14/20 02/14/20 05:41 23:24 18:12 POC Glucose 95 123 H 274 H Abnormal Lab Results - Last 48 hrs 02/13/20 19:00: Chloride 93 L, Carbon Dioxide 34 H, BUN 86 H, Creatinine 3.09 H 02/14/20 03:42: Sodium 134 L, Potassium 6.3 H, Chloride 94 L, Anion Gap 22 H, BUN 95 H, Creatinine 3.11 H, AST 98 H, ALT 68 H, Alkaline Phosphatase 111 H 02/14/20 03:42: Troponin I 0.261 H 02/14/20 03:42: Folate 4.10 L 02/14/20 03:43: MCV 102.0 H, MCH 31.1 H, MCHC 30.6 L, RDW 15.1 H, MPV 10.5 H, Neutrophils % (Manual) 76 H, Band Neuts % (Manual) 20 H, Lymphocytes % (Manual) 1 L, Elliptocytes MODERATE= 6-15 cells H 02/14/20 08:04: Bicarbonate Actual 30.8 H, ABG pH 7.19 L*, ABG pCO2 82.0 H*, ABG pO2 86.6 H, ABG Deoxyhemoglobin 3.9 H, Sodium 133 L, Potassium 5.45 H, Chloride 93 L 02/14/20 10:18: Bicarbonate Actual 30.9 H, ABG pH 7.23 L*, ABG pCO2 74.9 H*, ABG pO2 76.3 H, ABG O2 Content 17.2 L, ABG Deoxyhemoglobin 4.9 H, A-a O2 Gradient 43.975 H, Chloride 93 L 02/14/20 12:36: Chloride 94 L, BUN 94 H, Creatinine 3.21 H 02/14/20 12:36: APTT 38.8 H 02/14/20 13:48: Bicarbonate Actual 32.2 H, ABG pH 7.21 L*, ABG pCO2 82.1 H*, ABG pO2 215.9 H, ABG O2 Sat (Measured) 99.6 H, ABG Oxyhemoglobin 98.8 H, A-a O2 Gradient 394.475 H, Chloride 94 L 02/14/20 18:07: Chloride 93 L, BUN 96 H, Creatinine 3.24 H 02/14/20 18:07: APTT Greater than 250.0 H* 02/14/20 21:00: APTT 168.2 H* 02/14/20 23:20: APTT 49.3 H 02/15/20 03:39: RBC 3.62 L, Hgb 11.0 L, Hct 35.2 L, MCHC 31.3 L, RDW 14.6 H, Band Neuts % (Manual) 14 H, Lymphocytes % (Manual) 4 L 02/15/20 03:39: Chloride 93 L, Carbon Dioxide 34 H, BUN 94 H, Creatinine 3.05 H, AST 149 H, ALT 114 H 02/15/20 05:39: APTT 162.9 H* 02/15/20 07:24: Bicarbonate Actual 33.1 H, ABG pCO2 51.5 H, ABG pO2 59.3 L*, ABG O2 Sat (Measured) 92.3 L, ABG O2 Content 17.3 L, ABG Base Excess 7.3 H, ABG Oxyhemoglobin 91.3 L, ABG Deoxyhemoglobin 7.6 H, A-a O2 Gradient 90.225 H, Ionized Calcium 1.09 L, Potassium 3.61 L, Chloride 93 L 02/15/20 08:29: APTT 50.4 H 02/15/20 14:29: APTT 170.5 H* Microbiology - Entire Visit 02/13/20 10:36 Venous blood - Left Hand Blood Culture - Preliminary NO GROWTH AT 48 HOURS 02/13/20 10:36 Venous blood - Right Hand Blood Culture - Preliminary NO GROWTH AT 48 HOURS EKG Reviewed by me: Yes (Sinus rhythm on telemetry) Hospitalist ROS - Review of Systems Cardiovascular: denies: chest pain, palpitations, orthopnea, paroxysmal noc. dyspnea, edema, light headedness, other Gastrointestinal: denies: nausea, vomiting, abdominal pain, diarrhea, constipation, melena, hematochezia, other - Medication Medications: Active Medications Generic Name Dose Route Start Last Admin Trade Name Freq PRN Reason Stop Dose Admin Albuterol Sulfate 2.5 mg 02/14/20 10:30 02/15/20 14:32 Albuterol Sulfate 2.5 Mg/3 Ml Neb NEB 2.5 mg [id number] ALEX Administration Aspirin 300 mg 02/13/20 21:00 02/14/20 20:36 Aspirin 300 Mg Suppository MD 300 mg 2100 ALEX Administration Bisacodyl 10 mg 02/14/20 09:00 02/15/20 09:15 Bisacodyl 10 Mg Supp MD Not Given DAILY ALEX Folic Acid 1 mg 02/14/20 09:00 02/15/20 09:05 Folic Acid 1 Mg Tab PO 1 mg DAILY ALEX Administration Norepinephrine Bitartrate 250 mls @ 0 mls/hr 02/13/20 19:45 02/14/20 13:03 Levophed IVPB 250 mls INF ALEX Administration Protocol Titrate Insulin Human Regular 0 units 02/13/20 17:05 02/14/20 18:09 Insulin Regular 300 Units/3 Ml Vial SC 4 unit .MILD SLIDING SCALE PRN Administration Mild Correctional Scale Polyethylene Glycol 17 gm 02/13/20 21:00 02/15/20 09:42 Polyethylene Glycol 3350 17 Gm Packet PO Not Given BID ALEX Senna/Docusate Sodium 2 tab 02/13/20 21:00 02/15/20 09:42 Senokot S 8.6-50 Mg Tab PO Not Given BID ALEX - Exam General Appearance: ill appearing Heart: RRR, no gallops, no rubs Respiratory: no wheezes, rales, rhonchi Gastrointestinal: soft, non-tender, normal bowel sounds Extremities: no cyanosis, 2+ LE edema Skin: normal turgor Neurological: no new deficit Psychiatric: normal affect, A&O x 3 Hosp A/P - Plan DVT proph w/heparin 1. Generalized weakness/Toxic metabolic encephalopathy, multifactorial. 2. Acute hypoxic and hypercapnic respiratory failure requiring noninvasive positive pressure ventilation 3. Acute on chronic right-sided congestive heart failure exacerbation due to suspected pulmonary embolism. On heparin drip since 02/13 4. Acute kidney injury on chronic kidney disease stage 2. ? Cardiorenal syndrome 5. Hypotension requiring pressors - prob due to Sepsis ? Septic shock - POA 6. Sepsis due to urinary tract infection. 7. NSVT 8. Hyponatremia/hyperkalemia. 9. Macrocytosis. 10. Constipation. 11. Gastroesophageal reflux disease. 12. Diabetes mellitus type 2. 13. Chronic pain syndrome. 14. Chronic insomnia. 15. Lactic acidosis/Type 2 myocardial infarction. - resolved PLAN: Transfer to [facility]. Discontinue Zyvox. Change ceftriaxone to cefepime. Patient on heparin drip for suspected venous thromboembolism. Monitor PTT closely. Patient is off Levophed. Continue diuresis. Start diet per speech therapy. Physical therapy evaluation. Will update family. Continue other medications as above. A.m. labs
[2020-02-15] MEDS: Cefepime 0.5 GM, Admixture Fee 1 EACH in Sodium Chloride 0.9% 100 ML IVPB SCH (20:39)
[2020-02-15] MEDS: Doxycycline 100 MG CAP PO SCH (20:39)
[2020-02-15] MEDS ORDERED: Senokot S 8.6-50 MG TAB PO SCH (21:00)
[2020-02-16] MEDS: Albuterol Sulfate 2.5 mg/3 ml Neb NEB SCH ×4 (03:36→14:28)
[2020-02-16 04:04] LABS: Band 3 % (5-11); Elliptocytes MODERATE= 6-15 cells (100X) (0-1/hpf); Hemoglobin 11.1 g/dL (12.0-16.0); Lymphocytes 9 % (21-51); MDiff Complete? YES; Mean Corpuscular Volume 96.9 fL (78.0-98.0); Mean Platelet Volume 9.3 fL (7.4-10.4); Monocytes 11 % (0-10); Neutrophil 77 % (42-75); Platelet Count 142 thou/uL (130-400); RBC Distribution Width 14.5 % (11.5-14.5); Red Blood Cell (RBC) Count 3.49 mill/uL (4.20-5.40)
[2020-02-16 04:09] LABS: Phosphorus 3.3 mg/dL (2.3-4.7)
[2020-02-16 04:10] LABS: ALT (SGPT) 103 U/L (8-55); AST (SGOT) 89 U/L (5-34); Albumin 3.7 g/dL (3.4-4.8); Alkaline Phosphatase 79 U/L (40-110); Anion Gap 16 mmol/L (10-20); BUN (Urea Nitrogen) 82 mg/dL (9.8-20.1); Bilirubin, Total 0.5 mg/dL (0.2-1.2); Calc. Creatinine Clearance 20 mL/min (70-130); Carbon Dioxide 37 mmol/L (23-31); Chloride 91 mmol/L (98-107); Estimated GFR-MDRD 17; Globulin 2.6 g/dL (2.4-3.5); Glucose 141 mg/dL (83-110); Magnesium 1.8 mg/dL (1.6-2.6); Potassium 3.2 mmol/L (3.5-5.1); Protein, Total 6.3 g/dL (6.0-8.3); Sodium 141 mmol/L (136-145)
[2020-02-16] MEDS ORDERED: Potassium Chloride 20 MEQ TAB PO SCH (06:00)
[2020-02-16] MEDS ORDERED: Folic Acid 1 MG TAB PO SCH (09:00)
[2020-02-16] MEDS: Aspirin 81 mg Enteric Coated Tablet PO SCH (09:53)
[2020-02-16] MEDS: Folic Acid 1 MG TAB PO SCH (09:53)
[2020-02-16] MEDS: Cyanocobalamin (Vitamin B-12) 1,000 MCG TAB PO SCH (09:53)
[2020-02-16] MEDS: Metolazone 5 MG TAB PO SCH (09:53)
[2020-02-16] MEDS: Senokot S 8.6-50 MG TAB PO SCH ×2 (09:54→20:41)
[2020-02-16] MEDS: Doxycycline 100 MG CAP PO SCH ×2 (09:54→20:40)
[2020-02-16] MEDS: Polyethylene Glycol 3350 17 GM Packet PO SCH ×2 (09:54→20:41)
[2020-02-16] MEDS: Multivit, Therapeutic 1 TAB PO SCH (09:54)
[2020-02-16] MEDS: Furosemide 100 MG/10 ML VIAL SLOW IVP SCH ×2 (09:54→20:41)
[2020-02-16] MEDS: Famotidine 20 MG TAB PO SCH (09:54)
[2020-02-16] MEDS: Bisacodyl 10 MG SUPP PR SCH (09:54)
--- NOTE | 2020-02-16 10:21 | PRG ---
DATE OF SERVICE: 02/16/2020 SUBJECTIVE: The patient is doing fairly well. Has no respiratory complaints. OBJECTIVE: VITAL SIGNS: On exam, temperature 99, pulse 88, blood pressure 104/62, and O2 saturation 99%. HEENT: Unremarkable. NECK: No JVD. LUNGS: Fairly clear. CARDIAC: S1 and S2. Regular. ABDOMEN: Soft. EXTREMITIES: No edema. LABORATORY DATA: White blood cell count 7, hematocrit 33.8, and platelet count 142. Sodium 141, potassium 3.2, BUN 82, creatinine 2.7, and glucose 141. ASSESSMENT: 1. Status post respiratory failure, requiring noninvasive mechanical ventilation. 2. Urosepsis. 3. Acute diastolic heart dysfunction. 4. Renal failure. PLAN: The patient seems to improve markedly on antibiotics. Cultures have shown no growth to date. She is oxygenating well. From my standpoint, she can be transferred out to the medical floor for further therapy. Job ID: [id number]
--- NOTE | 2020-02-16 13:04 | PDOC.NEPPN ---
- Subjective Encounter Date: 02/16/20 Subjective: Seen in follow up for BENJAMIN and anasarca. More comfortable. Complaining of bilateral leg pain and tenderness. - Objective Vital Signs & Weight: Vital Signs (12 hours) Temp Pulse Pulse Pulse Resp BP BP 02/16/20 11:00 98.8 F 02/16/20 10:43 81 91 114/65 111/64 02/16/20 08:00 02/16/20 07:00 99.0 F 02/16/20 06:59 02/16/20 06:57 85 16 02/16/20 03:53 98.0 F 02/16/20 03:36 Pulse Ox Pulse Ox Pulse Ox 02/16/20 11:00 02/16/20 10:43 100 100 02/16/20 08:00 100 02/16/20 07:00 02/16/20 06:59 99 02/16/20 06:57 99 02/16/20 03:53 02/16/20 03:36 93 L Weight Admit Weight 164 lb 8.128 oz Weight 161 lb 9.581 oz Most Recent Monitor Data Heart Rate from ECG 80 NIBP 110/66 NIBP BP-Mean 80 Respiration from ECG 18 SpO2 100 I&O: 02/15/20 02/16/20 02/17/20 06:59 06:59 06:59 Intake Total 1965 470 Output Total 8518 1707 Balance -051 -4341 Result Diagrams: 02/16/20 03:12 02/16/20 03:12 Additional Labs: Accuchecks 02/16/20 02/16/20 02/16/20 11:59 06:38 00:08 POC Glucose 107 H 137 H 167 H 02/15/20 18:22 POC Glucose 138 H Nephrology ROS - Medication Medications: Active Medications Generic Name Dose Route Start Last Admin Trade Name Freq PRN Reason Stop Dose Admin Albuterol Sulfate 2.5 mg 02/14/20 10:30 02/16/20 10:36 Albuterol Sulfate 2.5 Mg/3 Ml Neb NEB Not Given [id number] ALEX Aspirin 81 mg 02/16/20 09:00 02/16/20 09:53 Aspirin 81 Mg Enteric Coated Tablet PO 81 mg DAILY ALEX Administration Bisacodyl 10 mg 02/14/20 09:00 02/16/20 09:54 Bisacodyl 10 Mg Supp [place] Not Given DAILY ALEX Cyanocobalamin 1,000 mcg 02/16/20 09:00 02/16/20 09:53 Cyanocobalamin (Vitamin B-12) 1,000 Mcg Tab PO 1,000 mcg DAILY ALEX Administration Doxycycline Hyclate 100 mg 02/15/20 21:00 02/16/20 09:54 Doxycycline 100 Mg Cap PO 100 mg BID ALEX Administration Famotidine 20 mg 02/16/20 09:00 02/16/20 09:54 Famotidine 20 Mg Tab PO 20 mg DAILY ALEX Administration Folic Acid 1 mg 02/14/20 09:00 02/16/20 09:53 Folic Acid 1 Mg Tab PO 1 mg DAILY ALEX Administration Furosemide 80 mg 02/15/20 21:00 02/16/20 09:54 Furosemide 100 Mg/10 Ml Vial SLOW IVP 80 mg BID ALEX Administration Cefepime HCl 0.5 gm/ 100 mls @ 200 mls/hr 02/15/20 21:00 02/15/20 20:39 Miscellaneous Medication 1 IVPB 100 mls each/ Sodium Chloride 2100 ALEX Administration Insulin Human Regular 0 units 02/13/20 17:05 02/14/20 18:09 Insulin Regular 300 Units/3 Ml Vial SC 4 unit .MILD SLIDING SCALE PRN Administration Mild Correctional Scale Metolazone 5 mg 02/16/20 08:30 02/16/20 09:53 Metolazone 5 Mg Tab PO 5 mg 0830 ALEX Administration Multivitamins 1 tab 02/16/20 09:00 02/16/20 09:54 Multivit, Therapeutic 1 Tab PO 1 tab DAILY ALEX Administration Polyethylene Glycol 17 gm 02/13/20 21:00 02/16/20 09:54 Polyethylene Glycol 3350 17 Gm Packet PO Not Given BID ALEX Senna/Docusate Sodium 2 tab 02/13/20 21:00 02/16/20 09:54 Senokot S 8.6-50 Mg Tab PO Not Given BID ALEX Sodium Chloride 10 ml 02/15/20 21:00 02/16/20 09:55 Flush - Normal Saline 10 Ml Syringe IVF 10 ml Q12HR ALEX Administration - Exam General Appearance: awake alert General - other findings: chronically ill looking Eye: anicteric sclera ENT: normocephalic atraumatic Neck: supple, symmetric Respiratory - other findings: fair air entry bilaterally with some transmitted sound Cardiovascular: RRR Gastrointestinal: soft, non-tender, non-distended, normal bowel sounds Extremities - other findings: moderate bilateral lower extremity eema Neurological: CN's grossly intact, no focal deficits PSYCH: A&O x 3 Nephrology Results - Labs Result Diagrams: 02/16/20 03:12 02/16/20 03:12 Lab results: WBC 7.0 thou/uL (4.8-10.8) 02/16/20 03:12 Hgb 11.1 g/dL (12.0-16.0) L 02/16/20 03:12 Hct 33.8 % (36.0-47.0) L 02/16/20 03:12 MCV 96.9 fL (78.0-98.0) 02/16/20 03:12 Plt Count 142 thou/uL (130-400) 02/16/20 03:12 Neutrophils % 91.2 % (42.0-75.0) H 02/13/20 09:54 Band Neuts % (Manual) 3 % (5-11) L 02/16/20 03:12 ABG pH 7.43 (7.35-7.45) 02/15/20 07:24 ABG pCO2 51.5 mmHg (35.0-45.0) H 02/15/20 07:24 ABG pO2 59.3 mmHg (> 70.0) L* 02/15/20 07:24 Sodium 141 mmol/L (136-145) 02/16/20 03:12 Potassium 3.2 mmol/L (3.5-5.1) L 02/16/20 03:12 Chloride 91 mmol/L (98-107) L 02/16/20 03:12 Carbon Dioxide 37 mmol/L (23-31) H 02/16/20 03:12 BUN 82 mg/dL (9.8-20.1) H 02/16/20 03:12 Creatinine 2.69 mg/dL (0.6-1.1) H 02/16/20 03:12 Glucose 141 mg/dL (83-110) H 02/16/20 03:12 Lactic Acid 2.0 mmol/L (0.5-2.2) 02/13/20 13:28 Calcium 9.0 mg/dL (7.8-10.44) 02/16/20 03:12 Total Bilirubin 0.5 mg/dL (0.2-1.2) 02/16/20 03:12 AST 89 U/L (5-34) H 02/16/20 03:12 ALT 103 U/L (8-55) H 02/16/20 03:12 Alkaline Phosphatase 79 U/L (40-110) 02/16/20 03:12 CK-MB (CK-2) 3.3 ng/mL (0-6.6) 02/13/20 13:28 Troponin I 0.261 ng/mL (< 0.028) H 02/14/20 03:42 B-Natriuretic Peptide 2604.7 pg/mL (0-100) H 02/13/20 09:54 Serum Total Protein 6.3 g/dL (6.0-8.3) 02/16/20 03:12 Albumin 3.7 g/dL (3.4-4.8) 02/16/20 03:12 Urine Ketones Negative mg/dL (Negative) 02/13/20 10:24 Urine Blood 3+ (Negative) A 02/13/20 10:24 Urine Nitrite Negative (Negative) 02/13/20 10:24 Ur Leukocyte Esterase 500 Melanie/uL (Negative) A 02/13/20 10:24 Urine RBC 21-50 HPF (0-3) A 02/13/20 10:24 Urine WBC Greater than 50 HPF (0-3) A 02/13/20 10:24 Ur Squamous Epith Cells 0-3 HPF (0-3) 02/13/20 10:24 Urine Bacteria 4+ HPF (None Seen) A 02/13/20 10:24 Sodium 141 mmol/L (136-145) 02/16/20 03:12 Potassium 3.2 mmol/L (3.5-5.1) L 02/16/20 03:12 Chloride 91 mmol/L (98-107) L 02/16/20 03:12 Carbon Dioxide 37 mmol/L (23-31) H 02/16/20 03:12 Anion Gap 16 mmol/L (10-20) 02/16/20 03:12 BUN 82 mg/dL (9.8-20.1) H 02/16/20 03:12 Creatinine 2.69 mg/dL (0.6-1.1) H 02/16/20 03:12 Glucose 141 mg/dL (83-110) H 02/16/20 03:12 Calcium 9.0 mg/dL (7.8-10.44) 02/16/20 03:12 Phosphorus 3.3 mg/dL (2.3-4.7) 02/16/20 03:12 Magnesium 1.8 mg/dL (1.6-2.6) 02/16/20 03:12 Albumin 3.7 g/dL (3.4-4.8) 02/16/20 03:12 Nephrology AP PN - Plan BENJAMIN: Due to hemodynamical factors related to circulatory shock and cardiorenal syndrome. BUN and creat are trending down. CKD stage 3 Hyperkalemia: Most likely due to renal failure, potassium supplementation and shift related to acidosis. Resolved. Hypokalemia: due to diuretic therapy Acidosis: metabolic and respiratory. Improved. Alkalosis: Most likely related to intravascular contration with possible contribution from metabolic compensation of respiratory acidosis. Acute on chronic right heart failure. PE is a concern. Also has valvular dysfunction. Anasarca: Either due to cardiac decompensation and/or hepatic pathology. Circulatory shoch/Hypotension: Due to cardiac decompensation and sepsis. has BENJAMIN and abnormal LFT. Improved. off pressor. Acute respiratory failure with hypercarbia. Improved. Sepsis: 2/2 right lower extremity cellulitis and Urinary tract infection Abnormal liver function tests. Shock +/- Cirrhosis. Presumed urinary tract infection. Diabetes mellitus, on metformin. Pulmonary HTN: acute PE vs chronic pulmonary embolism. Plan Replete serum potassium. Continue diuresis with lasix and metolazone. Give a dose of albumin to expand intavascaular space and monitor effect. Get V/Q scan Monitor renal function and electrolytes. Other treatments as per cardiology.
[2020-02-16] MEDS ORDERED: Albumin 25% 25 GM/100 ML BOT IVPB SCH (13:10)
--- NOTE | 2020-02-16 13:43 | RAD ---
EXAM: Chest 2 views: HISTORY: Correlate with VQ scan. Shortness of breath. COMPARISON: 02/14/2020 FINDINGS: There is an enlarged but stable cardiomediastinal silhouette. Linear atelectasis is seen in the righ t lung base. There is elevation the right hemidiaphragm. There is no evidence of consolidation, mass, or pleural effusion. No acute osseous abnormality. IMPRESSION: Right basilar atelectasis
--- NOTE | 2020-02-16 14:03 | PDOC.HOSPP ---
- Subjective Encounter Date: 02/16/20 Encounter Time: 09:15 Subjective: Patient seen and examined for sepsis with acute kidney injury. Diuresing well per RN. No new chest pain or worsening shortness of breath. No fever or chills reported. - Objective Vital Signs & Weight: Vital Signs (12 hours) Temp Pulse Pulse Pulse Resp BP BP 02/16/20 11:00 98.8 F 02/16/20 10:43 81 91 114/65 111/64 02/16/20 08:00 02/16/20 07:00 99.0 F 02/16/20 06:59 02/16/20 06:57 85 16 02/16/20 03:53 98.0 F 02/16/20 03:36 Pulse Ox Pulse Ox Pulse Ox 02/16/20 11:00 02/16/20 10:43 100 100 02/16/20 08:00 100 02/16/20 07:00 02/16/20 06:59 99 02/16/20 06:57 99 02/16/20 03:53 02/16/20 03:36 93 L Weight Admit Weight 164 lb 8.128 oz Weight 161 lb 9.581 oz Most Recent Monitor Data Heart Rate from ECG 80 NIBP 110/66 NIBP BP-Mean 80 Respiration from ECG 18 SpO2 100 I&O: 02/15/20 02/16/20 02/17/20 06:59 06:59 06:59 Intake Total 1965 470 Output Total 9810 5788 Balance -518 -4275 Result Diagrams: 02/16/20 03:12 02/16/20 03:12 Additional Labs: Accuchecks 02/16/20 02/16/20 02/16/20 11:59 06:38 00:08 POC Glucose 107 H 137 H 167 H 02/15/20 18:22 POC Glucose 138 H Abnormal Lab Results - Last 48 hrs 02/14/20 13:48: Bicarbonate Actual 32.2 H, ABG pH 7.21 L*, ABG pCO2 82.1 H*, ABG pO2 215.9 H, ABG O2 Sat (Measured) 99.6 H, ABG Oxyhemoglobin 98.8 H, A-a O2 Gradient 394.475 H, Chloride 94 L 02/14/20 18:07: Chloride 93 L, BUN 96 H, Creatinine 3.24 H 02/14/20 18:07: APTT Greater than 250.0 H* 02/14/20 21:00: APTT 168.2 H* 02/14/20 23:20: APTT 49.3 H 02/15/20 03:39: RBC 3.62 L, Hgb 11.0 L, Hct 35.2 L, MCHC 31.3 L, RDW 14.6 H, Band Neuts % (Manual) 14 H, Lymphocytes % (Manual) 4 L 02/15/20 03:39: Chloride 93 L, Carbon Dioxide 34 H, BUN 94 H, Creatinine 3.05 H, AST 149 H, ALT 114 H 02/15/20 05:39: APTT 162.9 H* 02/15/20 07:24: Bicarbonate Actual 33.1 H, ABG pCO2 51.5 H, ABG pO2 59.3 L*, ABG O2 Sat (Measured) 92.3 L, ABG O2 Content 17.3 L, ABG Base Excess 7.3 H, ABG Oxyhemoglobin 91.3 L, ABG Deoxyhemoglobin 7.6 H, A-a O2 Gradient 90.225 H, Potassium 3.61 L, Chloride 93 L, Ionized Calcium 1.09 L 02/15/20 08:29: APTT 50.4 H 02/15/20 14:29: APTT 170.5 H* 02/16/20 03:12: RBC 3.49 L, Hgb 11.1 L, Hct 33.8 L, MCH 32.0 H, Neutrophils % (Manual) 77 H, Band Neuts % (Manual) 3 L, Lymphocytes % (Manual) 9 L, Monocytes % (Manual) 11 H, Elliptocytes MODERATE= 6-15 cells H 02/16/20 03:12: Potassium 3.2 L, Chloride 91 L, Carbon Dioxide 37 H, BUN 82 H, Creatinine 2.69 H, AST 89 H, ALT 103 H Microbiology - Entire Visit 02/15/20 17:25 Urine vanessa catheter Urine Culture - Preliminary NO GROWTH AT 24 HOURS 02/13/20 10:36 Venous blood - Left Hand Blood Culture - Preliminary NO GROWTH AT 48 HOURS 02/13/20 10:36 Venous blood - Right Hand Blood Culture - Preliminary NO GROWTH AT 48 HOURS EKG Reviewed by me: Yes (Sinus rhythm on telemetry) Hospitalist ROS - Review of Systems Gastrointestinal: reports: diarrhea. denies: nausea, vomiting, abdominal pain, constipation, melena, hematochezia, other Genitourinary: denies: dysuria, frequency, incontinence, hematuria, retention, other - Medication Medications: Active Medications Generic Name Dose Route Start Last Admin Trade Name Freq PRN Reason Stop Dose Admin Albuterol Sulfate 2.5 mg 02/14/20 10:30 02/16/20 10:36 Albuterol Sulfate 2.5 Mg/3 Ml Neb NEB Not Given [id number] ALEX Aspirin 81 mg 02/16/20 09:00 02/16/20 09:53 Aspirin 81 Mg Enteric Coated Tablet PO 81 mg DAILY ALEX Administration Bisacodyl 10 mg 02/14/20 09:00 02/16/20 09:54 Bisacod[address] Not Given DAILY ALEX Cyanocobalamin 1,000 mcg 02/16/20 09:00 02/16/20 09:53 Cyanocobalamin (Vitamin B-12) 1,000 Mcg Tab PO 1,000 mcg DAILY ALEX Administration Doxycycline Hyclate 100 mg 02/15/20 21:00 02/16/20 09:54 Doxycycline 100 Mg Cap PO 100 mg BID ALEX Administration Famotidine 20 mg 02/16/20 09:00 02/16/20 09:54 Famotidine 20 Mg Tab PO 20 mg DAILY ALEX Administration Folic Acid 1 mg 02/14/20 09:00 02/16/20 09:53 Folic Acid 1 Mg Tab PO 1 mg DAILY ALEX Administration Furosemide 80 mg 02/15/20 21:00 02/16/20 09:54 Furosemide 100 Mg/10 Ml Vial SLOW IVP 80 mg BID ALEX Administration Cefepime HCl 0.5 gm/ 100 mls @ 200 mls/hr 02/15/20 21:00 02/15/20 20:39 Miscellaneous Medication 1 IVPB 100 mls each/ Sodium Chloride 2100 ALEX Administration Insulin Human Regular 0 units 02/13/20 17:05 02/14/20 18:09 Insulin Regular 300 Units/3 Ml Vial SC 4 unit .MILD SLIDING SCALE PRN Administration Mild Correctional Scale Metolazone 5 mg 02/16/20 08:30 02/16/20 09:53 Metolazone 5 Mg Tab PO 5 mg 0830 ALEX Administration Multivitamins 1 tab 02/16/20 09:00 02/16/20 09:54 Multivit, Therapeutic 1 Tab PO 1 tab DAILY ALEX Administration Polyethylene Glycol 17 gm 02/13/20 21:00 02/16/20 09:54 Polyethylene Glycol 3350 17 Gm Packet PO Not Given BID ALEX Senna/Docusate Sodium 2 tab 02/13/20 21:00 02/16/20 09:54 Senokot S 8.6-50 Mg Tab PO Not Given BID ALEX Sodium Chloride 10 ml 02/15/20 21:00 02/16/20 09:55 Flush - Normal Saline 10 Ml Syringe IVF 10 ml Q12HR ALEX Administration - Exam General Appearance: ill appearing Heart: RRR, no gallops Respiratory: no wheezes, rales, rhonchi Gastrointestinal: soft, non-tender, no guarding, no rigidity Extremities: no cyanosis, no clubbing Neurological: no new deficit Hosp A/P - Plan 1. Generalized weakness/Toxic metabolic encephalopathy, multifactorial. 2. Acute hypoxic and hypercapnic respiratory failure requiring noninvasive positive pressure ventilation 3. Acute on chronic right-sided congestive heart failure exacerbation due to suspected pulmonary embolism. On heparin drip since 02/13 4. Acute kidney injury on chronic kidney disease stage 2. ? Cardiorenal syndrome 5. Hypotension requiring pressors - prob due to Sepsis ? Septic shock - POA 6. Sepsis due to urinary tract infection. 7. NSVT 8. Hyponatremia/hypokalemia. 9. Macrocytosis. 10. Abnormal LFTs due to passive hepatic congestion. 11. Gastroesophageal reflux disease. 12. Diabetes mellitus type 2. 13. Chronic pain syndrome. 14. Chronic insomnia. 15. Constipation/Lactic acidosis/Type 2 myocardial infarction/hyperkalemia. - resolved PLAN: Patient diuresing well. Continue cefepime with doxycycline. Await cultures. Heparin on hold due to elevated PTT. Continue diuresis. VQ scan today. Family updated. Replace potassium. A.m. labs. Continue other medications as above. PT/OT. Rule out C. difficile due to diarrhea.
--- NOTE | 2020-02-16 14:20 | PDOC.CPN ---
- Subjective Date: 02/16/20 Time: 14:18 Interval history: She is back to her baseline. mentation greatly improved from admission. Diuresing and creatinine improving. - Review of Systems ROS unobtainable: due to mental status - Objective Allergies/Adverse Reactions: Allergies Allergy/AdvReac Type Severity Reaction Status Date / Time codeine Allergy Verified 07/14/19 16:38 Visit Medications: Current Medications Acetaminophen (Acetaminophen 325 Mg Tab) 650 mg PO Q4H PRN PRN Reason: Headache/Fever/Mild Pain (1-3) Acetaminophen (Acetaminophen 650 Mg Suppository) 650 mg SD Q4H PRN PRN Reason: Headache/Fever/Mild Pain (1-3) Albumin Human (Albumin 25% 25 Gm/100 Ml Bot) 25 gm IVPB NOW [facility] Stop: 02/16/20 16:00 Albuterol Sulfate (Albuterol Sulfate 2.5 Mg/3 Ml Neb) 2.5 mg NEB [id number] [facility] Last Admin: 02/16/20 10:36 Dose: Not Given Documented by: Aspirin (Aspirin 81 Mg Enteric Coated Tablet) 81 mg PO DAILY [facility] Last Admin: 02/16/20 09:53 Dose: 81 mg Documented by: Bisacodyl (Bisacodyl 10 Mg Supp) 10 mg SD DAILYPRN PRN PRN Reason: Constipation Bisacodyl (Bisacodyl 10 Mg Supp) 10 mg SD DAILY [facility] Last Admin: 02/16/20 09:54 Dose: Not Given Documented by: Cyanocobalamin (Cyanocobalamin (Vitamin B-12) 1,000 Mcg Tab) 1,000 mcg PO DAILY [facility] Last Admin: 02/16/20 09:53 Dose: 1,000 mcg Documented by: Dextrose/Water (Dextrose 50% Abboject 50 Ml Syringe) 25 gm SLOW IVP PRN PRN PRN Reason: Hypoglycemia Doxycycline Hyclate (Doxycycline 100 Mg Cap) 100 mg PO BID [facility] Last Admin: 02/16/20 09:54 Dose: 100 mg Documented by: Famotidine (Famotidine 20 Mg Tab) 20 mg PO DAILY [facility] Last Admin: 02/16/20 09:54 Dose: 20 mg Documented by: Folic Acid (Folic Acid 1 Mg Tab) 1 mg PO DAILY [facility] Last Admin: 02/16/20 09:53 Dose: 1 mg Documented by: Furosemide (Furosemide 100 Mg/10 Ml Vial) 80 mg SLOW IVP BID [facility] Last Admin: 02/16/20 09:54 Dose: 80 mg Documented by: Glucagon (Glucagon 1 Mg/Ml Vial) 1 mg IM PRN PRN PRN Reason: Hypoglycemia Dextrose/Water (D5w) 1,000 mls @ 0 mls/hr IV .Q0M PRN PRN Reason: Hypoglycemia Cefepime HCl 0.5 gm/Miscellaneous Medication 1 each/ Sodium Chloride 100 mls @ 200 mls/hr IVPB 2100 [facility] Last Admin: 02/15/20 20:39 Dose: 100 mls Documented by: Insulin Human Regular (Insulin Regular 300 Units/3 Ml Vial) 0 units SC .MILD SLIDING SCALE PRN PRN Reason: Mild Correctional Scale Last Admin: 02/14/20 18:09 Dose: 4 unit Documented by: Metolazone (Metolazone 5 Mg Tab) 5 mg PO 0830 [facility] Last Admin: 02/16/20 09:53 Dose: 5 mg Documented by: Multivitamins (Multivit, Therapeutic 1 Tab) 1 tab PO DAILY [facility] Last Admin: 02/16/20 09:54 Dose: 1 tab Documented by: Polyethylene Glycol (Polyethylene Glycol 3350 17 Gm Packet) 17 gm PO BID [facility] Last Admin: 02/16/20 09:54 Dose: Not Given Documented by: Senna/Docusate Sodium (Senokot S 8.6-50 Mg Tab) 2 tab PO BID [facility] Last Admin: 02/16/20 09:54 Dose: Not Given Documented by: Sodium Chloride (Flush - Normal Saline 10 Ml Syringe) 10 ml IVF Q12HR [facility] Last Admin: 02/16/20 09:55 Dose: 10 ml Documented by: Sodium Chloride (Flush - Normal Saline 10 Ml Syringe) 10 ml IVF PRN PRN PRN Reason: Saline Flush Tramadol HCl (Tramadol Hcl 50 Mg Tab) 50 mg PO Q12H PRN PRN Reason: Moderate Pain (4-6) Vital Signs & Weight: Vital Signs Temp Pulse Pulse Pulse Resp BP BP 02/16/20 11:00 98.8 F 02/16/20 10:43 81 91 114/65 111/64 02/16/20 08:00 02/16/20 07:00 99.0 F 02/16/20 06:59 02/16/20 06:57 85 16 02/16/20 03:53 98.0 F 02/16/20 03:36 Pulse Ox Pulse Ox Pulse Ox 02/16/20 11:00 02/16/20 10:43 100 100 02/16/20 08:00 100 02/16/20 07:00 02/16/20 06:59 99 02/16/20 06:57 99 02/16/20 03:53 02/16/20 03:36 93 L Admit Weight 164 lb 8.128 oz Weight 161 lb 9.581 oz - Physical Exam General: no apparent distress HEENT: mucus membranes moist Neck: supple neck Cardiac: regular rate and rhythm Lungs: normal breath sounds Neuro: no lateralizing findings Abdomen: active bowel sounds Extremities: 2+ LE edema Skin: clear Musculoskeletal: no pain - Labs Result Diagrams: 02/16/20 03:12 02/16/20 03:12 Troponin/CKMB CK-MB (CK-2) 3.3 ng/mL (0-6.6) 02/13/20 13:28 Troponin I 0.261 ng/mL (< 0.028) H 02/14/20 03:42 - Telemetry Sinus rhythms and dysrhythmias: sinus rhythm - Assessment/Plan Assessment/Plan: 1. Acute RV failure 2. Hypotension 3. BENJAMIN on CKD 4. Possible Sepsis 5. Hyperkalemia 6. Possible liver cirrhosis. PLAN: - Likely her main issue was UTI sepsis. - Continue IV lasix at current dose. - Will follow.
--- NOTE | 2020-02-16 15:03 | NM ---
RADIONUCLIDE LUNG PERFUSION SCAN: Date: 02/16/2020 HISTORY: Suspected PE. RADIOPHARMACEUTICAL: 5.1 mCi technetium-99m MAA injected intravenously. FINDINGS: Correlation is made with the portable chest radiograph of 02/14/2020. There is a moderate sized defect in the superior segment of the right lower lobe. IMPRESSION: Indeterminate for pulmonary embolism. Further evaluation with CT pulmonary angiogram is recommended. POS: OFF
[2020-02-16] MEDS ORDERED: Albuterol Sulfate 2.5 mg/3 ml Neb NEB PRN (15:05)
--- NOTE | 2020-02-16 16:20 | PDOC.FMACP ---
Advance Care Planning - Problem (1) Respiratory failure Status: Acute Code(s): J96.90 - RESPIRATORY FAILURE, UNSP, UNSP W HYPOXIA OR HYPERCAPNIA (2) Kidney disease, chronic, stage II (GFR 60-89 ml/min) Status: Acute Code(s): N18.2 - CHRONIC KIDNEY DISEASE, STAGE 2 (MILD) (3) Palliative care encounter Status: Acute Code(s): Z51.5 - ENCOUNTER FOR PALLIATIVE CARE (4) Right-sided heart failure Status: Acute - Note Participants: patient, palliative care Summary: Introduced Advanced Care Planning, opportunity to decline. The diagnosis, prognosis and goals of care were discussed. Appropriate forms and documentation to accomplish the goals of care were discussed. All questions were answered. Ms Humphreys elected to transition to a DNAR. Will follow up with further conversation in relation to Directive to physician at patient request. Document completed, Dr Christina notified. The Palliative Care Team will be engaged to assist with completion of any outstanding forms that are needed. Time Spent (mins): 30
[2020-02-16] MEDS: Acetaminophen 325 MG TAB PO PRN (20:40)
[2020-02-16] MEDS: traMADol HCl 50 MG TAB PO PRN (20:40)
[2020-02-16] MEDS: Heparin 5,000 UNITS/ML VIAL SC SCH (20:41)
[2020-02-16] MEDS: Cefepime 0.5 GM, Admixture Fee 1 EACH in Sodium Chloride 0.9% 100 ML IVPB SCH (22:02)
[2020-02-17 04:52] LABS: Anion Gap 21 mmol/L (10-20); Carbon Dioxide 35 mmol/L (23-31); Chloride 91 mmol/L (98-107); Potassium 3.6 mmol/L (3.5-5.1); Sodium 143 mmol/L (136-145)
[2020-02-17 05:10] LABS: ALT (SGPT) 74 U/L (8-55); AST (SGOT) 47 U/L (5-34); Albumin 3.8 g/dL (3.4-4.8); Alkaline Phosphatase 76 U/L (40-110); BUN (Urea Nitrogen) 69 mg/dL (9.8-20.1); Bilirubin, Total 0.7 mg/dL (0.2-1.2); Calc. Creatinine Clearance 27 mL/min (70-130); Estimated GFR-MDRD 24; Globulin 2.9 g/dL (2.4-3.5); Glucose 110 mg/dL (83-110); Magnesium 1.6 mg/dL (1.6-2.6); Phosphorus 2.4 mg/dL (2.3-4.7); Protein, Total 6.7 g/dL (6.0-8.3)
[2020-02-17 05:27] LABS: Band 2 % (5-11); Hemoglobin 11.9 g/dL (12.0-16.0); Lymphocytes 21 % (21-51); MDiff Complete? YES; Mean Corpuscular HGB CONC 31.5 g/dL (32.0-36.0); Mean Corpuscular Hemoglobin 30.7 pg (27.0-31.0); Mean Corpuscular Volume 97.5 fL (78.0-98.0); Mean Platelet Volume 10.3 fL (7.4-10.4); Monocytes 14 % (0-10); Neutrophil 63 % (42-75); Nucleated RBC 1 % (0); Platelet Count 166 thou/uL (130-400); RBC Distribution Width 14.7 % (11.5-14.5); Red Blood Cell (RBC) Count 3.89 mill/uL (4.20-5.40); White Blood Cell (WBC) Count 6.3 thou/uL (4.8-10.8)
[2020-02-17 05:30] LABS: Elliptocytes MODERATE= 6-15 cells (100X) (0-1/hpf)
[2020-02-17] MEDS: Multivit, Therapeutic 1 TAB PO SCH (08:22)
[2020-02-17] MEDS: Folic Acid 1 MG TAB PO SCH (08:22)
[2020-02-17] MEDS: Cyanocobalamin (Vitamin B-12) 1,000 MCG TAB PO SCH (08:22)
[2020-02-17] MEDS: Aspirin 81 mg Enteric Coated Tablet PO SCH (08:22)
[2020-02-17] MEDS: Doxycycline 100 MG CAP PO SCH ×2 (08:22→21:46)
[2020-02-17] MEDS: Famotidine 20 MG TAB PO SCH (08:22)
[2020-02-17] MEDS: Metolazone 5 MG TAB PO SCH (08:22)
[2020-02-17] MEDS: Heparin 5,000 UNITS/ML VIAL SC SCH ×2 (08:23→21:46)
[2020-02-17] MEDS: Bisacodyl 10 MG SUPP PR SCH (08:25)
[2020-02-17] MEDS: Polyethylene Glycol 3350 17 GM Packet PO SCH ×2 (08:26→21:45)
[2020-02-17] MEDS: Senokot S 8.6-50 MG TAB PO SCH ×2 (08:26→21:46)
[2020-02-17] MEDS ORDERED: Magnesium 2 GM/50 ML 2 GM in Premix Bag 1 BAG IVPB SCH (08:30)
[2020-02-17] MEDS ORDERED: Magnesium Sulfate 2 GM in Sodium Chloride 0.9% 100 ML IVPB SCH (08:30)
[2020-02-17] MEDS: Furosemide 100 MG/10 ML VIAL SLOW IVP SCH ×2 (08:31→21:45)
--- NOTE | 2020-02-17 09:51 | PDOC.NEPPN ---
- Subjective Encounter Date: 02/17/20 Subjective: Seen in follow up for BENJAMIN and anasarca. feeling better. Diuresing well. - Objective Vital Signs & Weight: Vital Signs (12 hours) Temp Pulse Resp BP Pulse Ox 02/17/20 07:22 98.4 F 91 20 143/69 H 97 02/17/20 04:00 98.2 F 94 20 128/71 93 L Weight Admit Weight 164 lb 8.128 oz Weight 150 lb 12.8 oz Most Recent Monitor Data Heart Rate from ECG 90 NIBP 114/55 NIBP BP-Mean 74 Respiration from ECG 18 SpO2 100 I&O: 02/16/20 02/17/20 02/18/20 06:59 06:59 06:59 Intake Total 470 580 Output Total 2883 8073 [id number] Result Diagrams: 02/17/20 03:56 02/17/20 03:56 Additional Labs: Accuchecks 02/17/20 02/16/20 02/16/20 06:06 23:55 17:21 POC Glucose 113 H 120 H 99 02/16/20 02/15/20 11:59 18:22 POC Glucose 107 H 138 H Nephrology ROS - Medication Medications: Active Medications Generic Name Dose Route Start Last Admin Trade Name Freq PRN Reason Stop Dose Admin Acetaminophen 650 mg 02/13/20 15:09 02/16/20 20:40 Acetaminophen 325 Mg Tab PO 650 mg Q4H PRN Administration Headache/Fever/Mild Pain (1-3) Aspirin 81 mg 02/16/20 09:00 02/17/20 08:22 Aspirin 81 Mg Enteric Coated Tablet PO 81 mg DAILY ALEX Administration Bisacodyl 10 mg 02/14/20 09:00 02/17/20 08:25 Bisacodyl 10 Mg Supp [place] Not Given DAILY ALEX Cyanocobalamin 1,000 mcg 02/16/20 09:00 02/17/20 08:22 Cyanocobalamin (Vitamin B-12) 1,000 Mcg Tab PO 1,000 mcg DAILY ALEX Administration Doxycycline Hyclate 100 mg 02/15/20 21:00 02/17/20 08:22 Doxycycline 100 Mg Cap PO 100 mg BID ALEX Administration Famotidine 20 mg 02/16/20 09:00 02/17/20 08:22 Famotidine 20 Mg Tab PO 20 mg DAILY ALEX Administration Folic Acid 1 mg 02/14/20 09:00 02/17/20 08:22 Folic Acid 1 Mg Tab PO 1 mg DAILY ALEX Administration Furosemide 80 mg 02/15/20 21:00 02/17/20 08:31 Furosemide 100 Mg/10 Ml Vial SLOW IVP 80 mg BID ALEX Administration Heparin Sodium (Porcine) 5,000 units 02/16/20 21:00 02/17/20 08:23 Heparin 5,000 Units/Ml Vial SC 5,000 units BID LAEX Administration Cefepime HCl 0.5 gm/ 100 mls @ 200 mls/hr 02/15/20 21:00 02/16/20 22:02 Miscellaneous Medication 1 IVPB 100 mls each/ Sodium Chloride 2100 ALEX Administration Magnesium Sulfate 2 gm/ Device 50 mls @ 100 mls/hr 02/17/20 08:30 02/17/20 08:49 IVPB 02/17/20 12:00 50 mls NOW ALEX Administration Insulin Human Regular 0 units 02/13/20 17:05 02/14/20 18:09 Insulin Regular 300 Units/3 Ml Vial SC 4 unit .MILD SLIDING SCALE PRN Administration Mild Correctional Scale Metolazone 5 mg 02/16/20 08:30 02/17/20 08:22 Metolazone 5 Mg Tab PO 5 mg 0830 ALEX Administration Multivitamins 1 tab 02/16/20 09:00 02/17/20 08:22 Multivit, Therapeutic 1 Tab PO 1 tab DAILY ALEX Administration Polyethylene Glycol 17 gm 02/13/20 21:00 02/17/20 08:26 Polyethylene Glycol 3350 17 Gm Packet PO Not Given BID ALEX Senna/Docusate Sodium 2 tab 02/13/20 21:00 02/17/20 08:26 Senokot S 8.6-50 Mg Tab PO Not Given BID ALEX Sodium Chloride 10 ml 02/15/20 21:00 02/17/20 09:18 Flush - Normal Saline 10 Ml Syringe IVF 10 ml Q12HR ALEX Administration Tramadol HCl 50 mg 02/15/20 16:54 02/16/20 20:40 Tramadol Hcl 50 Mg Tab PO 50 mg Q12H PRN Administration Moderate Pain (4-6) - Exam General Appearance: awake alert General - other findings: cachetic Eye: anicteric sclera ENT: normocephalic atraumatic, moist mucosa Neck: supple, symmetric Respiratory: no ronchi Respiratory - other findings: fair air entry with crackles/transmitted sound. increased work of breathing Cardiovascular: RRR Gastrointestinal: soft, non-tender, non-distended, normal bowel sounds Extremities - other findings: moderate bilateral LE edema Skin - other findings: Right leg/foot erythema noted Neurological: CN's grossly intact Neurological - other findings: moving all limbs but weakly especially lower extremities PSYCH: A&O x 3 Nephrology Results - Labs Result Diagrams: 02/17/20 03:56 02/17/20 03:56 Lab results: WBC 6.3 thou/uL (4.8-10.8) 02/17/20 03:56 Hgb 11.9 g/dL (12.0-16.0) L 02/17/20 03:56 Hct 37.9 % (36.0-47.0) 02/17/20 03:56 MCV 97.5 fL (78.0-98.0) 02/17/20 03:56 Plt Count 166 thou/uL (130-400) 02/17/20 03:56 Neutrophils % 91.2 % (42.0-75.0) H 02/13/20 09:54 Band Neuts % (Manual) 2 % (5-11) L 02/17/20 03:56 ABG pH 7.43 (7.35-7.45) 02/15/20 07:24 ABG pCO2 51.5 mmHg (35.0-45.0) H 02/15/20 07:24 ABG pO2 59.3 mmHg (> 70.0) L* 02/15/20 07:24 Sodium 143 mmol/L (136-145) 02/17/20 03:56 Potassium 3.6 mmol/L (3.5-5.1) 02/17/20 03:56 Chloride 91 mmol/L (98-107) L 02/17/20 03:56 Carbon Dioxide 35 mmol/L (23-31) H 02/17/20 03:56 BUN 69 mg/dL (9.8-20.1) H 02/17/20 03:56 Creatinine 2.04 mg/dL (0.6-1.1) H 02/17/20 03:56 Glucose 110 mg/dL (83-110) 02/17/20 03:56 Lactic Acid 2.0 mmol/L (0.5-2.2) 02/13/20 13:28 Calcium 10.0 mg/dL (7.8-10.44) 02/17/20 03:56 Total Bilirubin 0.7 mg/dL (0.2-1.2) 02/17/20 03:56 AST 47 U/L (5-34) H 02/17/20 03:56 ALT 74 U/L (8-55) H 02/17/20 03:56 Alkaline Phosphatase 76 U/L (40-110) 02/17/20 03:56 CK-MB (CK-2) 3.3 ng/mL (0-6.6) 02/13/20 13:28 Troponin I 0.261 ng/mL (< 0.028) H 02/14/20 03:42 B-Natriuretic Peptide 2604.7 pg/mL (0-100) H 02/13/20 09:54 Serum Total Protein 6.7 g/dL (6.0-8.3) 02/17/20 03:56 Albumin 3.8 g/dL (3.4-4.8) 02/17/20 03:56 Urine Ketones Negative mg/dL (Negative) 02/13/20 10:24 Urine Blood 3+ (Negative) A 02/13/20 10:24 Urine Nitrite Negative (Negative) 02/13/20 10:24 Ur Leukocyte Esterase 500 Melanie/uL (Negative) A 02/13/20 10:24 Urine RBC 21-50 HPF (0-3) A 02/13/20 10:24 Urine WBC Greater than 50 HPF (0-3) A 02/13/20 10:24 Ur Squamous Epith Cells 0-3 HPF (0-3) 02/13/20 10:24 Urine Bacteria 4+ HPF (None Seen) A 02/13/20 10:24 Sodium 143 mmol/L (136-145) 02/17/20 03:56 Potassium 3.6 mmol/L (3.5-5.1) 02/17/20 03:56 Chloride 91 mmol/L (98-107) L 02/17/20 03:56 Carbon Dioxide 35 mmol/L (23-31) H 02/17/20 03:56 Anion Gap 21 mmol/L (10-20) H 02/17/20 03:56 BUN 69 mg/dL (9.8-20.1) H 02/17/20 03:56 Creatinine 2.04 mg/dL (0.6-1.1) H 02/17/20 03:56 Glucose 110 mg/dL (83-110) 02/17/20 03:56 Calcium 10.0 mg/dL (7.8-10.44) 02/17/20 03:56 Phosphorus 2.4 mg/dL (2.3-4.7) 02/17/20 03:56 Magnesium 1.6 mg/dL (1.6-2.6) 02/17/20 03:56 Albumin 3.8 g/dL (3.4-4.8) 02/17/20 03:56 Nephrology AP PN - Plan BENJAMIN: Due to hemodynamical factors related to circulatory shock and cardiorenal syndrome. BUN and creat continue to trend down with diuresis. CKD stage 3 Hyperkalemia: Most likely due to renal failure, potassium supplementation and shift related to acidosis. Resolved. Hypokalemia: due to diuretic therapy Acidosis: metabolic and respiratory. Improved. Alkalosis: Most likely related to intravascular contration with possible contribution from metabolic compensation of respiratory acidosis. Acute on chronic right heart failure. Anasarca: Due to cardiac decompensation and liver cirrhosis. Improving with diuretics. Circulatory shoch/Hypotension: Due to cardiac decompensation and sepsis. has BENJAMIN and abnormal LFT. Improved. off pressor. Acute respiratory failure with hypercarbia. Improved. Sepsis: 2/2 right lower extremity cellulitis and Urinary tract infection Abnormal liver function tests. Shock +/- Cirrhosis. Liver Cirrhosis Presumed urinary tract infection. Diabetes mellitus, on metformin. Pulmonary HTN. Presumed PE Protein calorie malnutrition Plan Continue diuresis with lasix and metolazone. Monitor renal function and electrolytes. Start nepro Other treatments as per cardiology and primary attending. Consider Liver US and CT chest.
--- NOTE | 2020-02-17 14:54 | ULT ---
EXAM: US Hepatic Doppler PROVIDED CLINICAL HISTORY: Anasarca and abnormal liver function tests. COMPARISON: None FINDINGS: Pancreas is completely obscured by bowel gas and unable to be visualized. Portions of the left hepatic lobe are obscured due to shadowing from bowel gas. Remainder of the live r does demonstrate a normal sonographic appearance The spleen has a normal sonographic appearance and is not enlarged. There are shadowing echogenic foci are seen in the gallbladder compatible with gallbladder calculi. N o gallbladder wall thickening or pericholecystic fluid is appreciated on this exam. The common duct measures 0.3 cm in diameter which is within normal limits. Visualized portions of the IVC demonstrate normal sonographic appearance. Hepatic Doppler evaluation with spectral analysis and color flow evaluation demonstrates normal direc tional flow within the splenic and hepatic veins. Arterial waveform is seen in the hepatic artery. The splenic vessels are difficult to evaluate. Although flow is demonstrated within the splenic vesse ls, directional flow in the splenic vein is difficult to definitely determine. Splenic artery also not well imaged on this study. IMPRESSION: 1. Hepatopetal flow within the portal and hepatic veins. There is limited evaluation of the flow in t he splenic vein; while there is suggestion of flow in the splenic vein, directional flow is difficult to determine. 2. Cholelithiasis. Common duct is normal in caliber. 3. Difficulty in imaging the left hepatic lobe. However, the liver otherwise demonstrates a normal so nographic appearance.
--- NOTE | 2020-02-17 15:33 | PDOC.HOSPP ---
- Subjective Encounter Date: 02/17/20 Encounter Time: 13:00 Subjective: Patient seen and examined for congestive heart failure/BENJAMIN. Feels generally weak and fatigued. Short of breath on minimal exertion. - Objective Vital Signs & Weight: Vital Signs (12 hours) Temp Pulse Pulse Pulse Resp BP BP 02/17/20 11:32 97.8 F 84 20 02/17/20 10:55 84 84 130/66 133/65 02/17/20 09:12 106 H 120/80 02/17/20 08:03 02/17/20 07:22 98.4 F 91 20 02/17/20 04:00 98.2 F 94 20 BP Pulse Ox Pulse Ox Pulse Ox 02/17/20 11:32 139/69 98 02/17/20 10:55 98 98 02/17/20 09:12 96 02/17/20 08:03 98 02/17/20 07:22 143/69 H 97 02/17/20 04:00 128/71 93 L Weight Admit Weight 164 lb 8.128 oz Weight 150 lb 12.8 oz Most Recent Monitor Data Heart Rate from ECG 90 NIBP 114/55 NIBP BP-Mean 74 Respiration from ECG 18 SpO2 100 I&O: 02/16/20 02/17/20 02/18/20 06:59 06:59 06:59 Intake Total 470 580 Output Total 2401 4227 [facility]5781 -[id number] Result Diagrams: 02/17/20 03:56 02/17/20 03:56 Additional Labs: Accuchecks 02/17/20 02/17/20 02/16/20 12:12 06:06 23:55 POC Glucose 88 113 H 120 H 02/16/20 17:21 POC Glucose 99 Abnormal Lab Results - Last 48 hrs 02/16/20 03:12: RBC 3.49 L, Hgb 11.1 L, Hct 33.8 L, MCH 32.0 H, Neutrophils % (Manual) 77 H, Band Neuts % (Manual) 3 L, Lymphocytes % (Manual) 9 L, Monocytes % (Manual) 11 H, Elliptocytes MODERATE= 6-15 cells H 02/16/20 03:12: Potassium 3.2 L, Chloride 91 L, Carbon Dioxide 37 H, BUN 82 H, Creatinine 2.69 H, AST 89 H, ALT 103 H 02/17/20 03:56: Chloride 91 L, Carbon Dioxide 35 H, Anion Gap 21 H, BUN 69 H, Creatinine 2.04 H, AST 47 H, ALT 74 H 02/17/20 03:56: RBC 3.89 L, Hgb 11.9 L, MCHC 31.5 L, RDW 14.7 H, Band Neuts % (Manual) 2 L, Monocytes % (Manual) 14 H, Nucleated RBCs # (Man) 1 H, Elliptocytes MODERATE= 6-15 cells H Microbiology - Entire Visit 02/15/20 17:25 Urine vanessa catheter Urine Culture - Final NO GROWTH AT 48 HOURS 02/16/20 12:45 Stool C. difficile GDH Antigen & Toxins - Final 02/13/20 10:36 Venous blood - Left Hand Blood Culture - Preliminary NO GROWTH AT 48 HOURS 02/13/20 10:36 Venous blood - Right Hand Blood Culture - Preliminary NO GROWTH AT 48 HOURS EKG Reviewed by me: Yes (Sinus rhythm on telemetry) Hospitalist ROS - Review of Systems Cardiovascular: reports: orthopnea, edema. denies: chest pain, palpitations, paroxysmal noc. dyspnea, light headedness, other Gastrointestinal: denies: nausea, vomiting, abdominal pain, diarrhea, constipation, melena, hematochezia, other - Medication Medications: Active Medications Generic Name Dose Route Start Last Admin Trade Name Figueroaq PRN Reason Stop Dose Admin Acetaminophen 650 mg 02/13/20 15:09 02/16/20 20:40 Acetaminophen 325 Mg Tab PO 650 mg Q4H PRN Administration Headache/Fever/Mild Pain (1-3) Aspirin 81 mg 02/16/20 09:00 02/17/20 08:22 Aspirin 81 Mg Enteric Coated Tablet PO 81 mg DAILY ALEX Administration Bisacodyl 10 mg 02/14/20 09:00 02/17/20 08:25 Bisacodyl 10 Mg Supp [place] Not Given DAILY ALEX Cyanocobalamin 1,000 mcg 02/16/20 09:00 02/17/20 08:22 Cyanocobalamin (Vitamin B-12) 1,000 Mcg Tab PO 1,000 mcg DAILY ALEX Administration Doxycycline Hyclate 100 mg 02/15/20 21:00 02/17/20 08:22 Doxycycline 100 Mg Cap PO 100 mg BID ALEX Administration Famotidine 20 mg 02/16/20 09:00 02/17/20 08:22 Famotidine 20 Mg Tab PO 20 mg DAILY ALEX Administration Folic Acid 1 mg 02/14/20 09:00 02/17/20 08:22 Folic Acid 1 Mg Tab PO 1 mg DAILY ALEX Administration Furosemide 80 mg 02/15/20 21:00 02/17/20 08:31 Furosemide 100 Mg/10 Ml Vial SLOW IVP 80 mg BID ALEX Administration Heparin Sodium (Porcine) 5,000 units 02/16/20 21:00 02/17/20 08:23 Heparin 5,000 Units/Ml Vial SC 5,000 units BID ALEX Administration Cefepime HCl 0.5 gm/ 100 mls @ 200 mls/hr 02/15/20 21:00 02/16/20 22:02 Miscellaneous Medication 1 IVPB 100 mls each/ Sodium Chloride 2100 ALEX Administration Insulin Human Regular 0 units 02/13/20 17:05 02/14/20 18:09 Insulin Regular 300 Units/3 Ml Vial SC 4 unit .MILD SLIDING SCALE PRN Administration Mild Correctional Scale Metolazone 5 mg 02/16/20 08:30 02/17/20 08:22 Metolazone 5 Mg Tab PO 5 mg 0830 ALEX Administration Multivitamins 1 tab 02/16/20 09:00 02/17/20 08:22 Multivit, Therapeutic 1 Tab PO 1 tab DAILY ALEX Administration Polyethylene Glycol 17 gm 02/13/20 21:00 02/17/20 08:26 Polyethylene Glycol 3350 17 Gm Packet PO Not Given BID ALEX Senna/Docusate Sodium 2 tab 02/13/20 21:00 02/17/20 08:26 Senokot S 8.6-50 Mg Tab PO Not Given BID ALEX Sodium Chloride 10 ml 02/15/20 21:00 02/17/20 09:18 Flush - Normal Saline 10 Ml Syringe IVF 10 ml Q12HR ALEX Administration Tramadol HCl 50 mg 02/15/20 16:54 02/16/20 20:40 Tramadol Hcl 50 Mg Tab PO 50 mg Q12H PRN Administration Moderate Pain (4-6) - Exam General Appearance: ill appearing Heart: RRR, no gallops Respiratory: rales, rhonchi Gastrointestinal: soft, no guarding, no rigidity Extremities: no cyanosis, 2+ LE edema Neurological: no new deficit Hosp A/P - Plan DVT proph w/heparin Generalized weakness/Toxic metabolic encephalopathy, multifactorial. Acute hypoxic and hypercapnic respiratory failure requiring noninvasive positive pressure ventilation Acute on chronic right-sided congestive heart failure exacerbation due to suspected pulmonary embolism. S/p heparin drip from 02/13 -02/15 Acute kidney injury on chronic kidney disease stage 2. ? Cardiorenal syndrome Metabolic acidosis Generalized anasarca Hypotension requiring pressors - prob due to Sepsis ? Septic shock - POA Sepsis due to urinary tract infection. NSVT Hyponatremia/hypokalemia/hypomagnesemia Macrocytosis. Abnormal LFTs due to passive hepatic congestion. Gastroesophageal reflux disease. Diabetes mellitus type 2. Chronic pain syndrome. Chronic insomnia. Constipation/Lactic acidosis/Type 2 myocardial infarction/hyperkalemia. - resolved PLAN: Renal function improving. Continue IV antibiotics. Replace magnesium. Continue Lasix with metolazone per nephrology. Less likely to be pulmonary embolism per pulmonary. Cultures negative so far. Please note that urine c ultures were obtained after the antibiotics. Right upper quadrant ultrasound showed normal sonographic appearance of the liverthere was difficulty in imaging the left hepatic lobe. Recheck labs in a.m. Case discussed with the family over the phone. Central line discontinued today. Out of hospital DNR completed.
--- NOTE | 2020-02-17 15:50 | PDOC.PALPN ---
Palliative Progress Note - Subjective Sleepy, arousable. O2, weakness. - Objective Vital Signs: Vital Signs - Most Recent Temp Pulse Resp BP Pulse Ox 97.8 F 84 20 139/69 98 02/17/20 11:32 02/17/20 11:32 02/17/20 11:32 02/17/20 11:32 02/17/20 11:32 - Physical Exam Constitutional: NAD, cachectic, ill appearing HEENT: EOMI, moist MMs, sclera anicteric Respiratory: no wheezing, diminished lung sound, labored respirations Cardiovascular: RRR Gastrointestinal: soft, non-tender Genitourinary: vanessa catheter Musculoskeletal: edema present Neurology: no focal deficits Skin: fragile Psychiatric: A&O x 3, flat affect - Assessment (1) Respiratory failure Code(s): J96.90 - RESPIRATORY FAILURE, UNSP, UNSP W HYPOXIA OR HYPERCAPNIA Current Visit: Yes Status: Acute (2) Kidney disease, chronic, stage II (GFR 60-89 ml/min) Code(s): N18.2 - CHRONIC KIDNEY DISEASE, STAGE 2 (MILD) Current Visit: Yes Status: Acute (3) Palliative care encounter Code(s): Z51.5 - ENCOUNTER FOR PALLIATIVE CARE Current Visit: Yes Status: Acute (4) Right-sided heart failure Current Visit: Yes Status: Acute - Plan Plan: Palliative Care followed up and completed MPOA, Directive to Physician, and patient elected to also complete OOHDNAR. Pronounced weakness, states she "just doesn't feel like doing much". Introduced goal of care again. Patient confirms residing at retirement. States "I really dont want to come back to the hospital, i'm just tired." Will follow up 02/17 and ask patient if she desires for a family conference to discuss her goal of care with her children. Please also refer to Palliative Care notes in note section. [35] minutes spent on this encounter with >50% of the time in counseling and coordination of care. - ROS Constitutional: alert, loss appetite, weakness ENT: other (Negatvie for swallowing, throat irritation) Respiratory: shortness of breath with extertion Cardiology: other (negative for chest pain, palpitations) Musculoskeletal: arthritis/arthralgias
--- NOTE | 2020-02-17 17:16 | PDOC.CPN ---
- Subjective Date: 02/17/20 Time: 17:14 Interval history: No new issues. Remains minimally verbal but will converse briefly. - Review of Systems ROS unobtainable: due to mental status - Objective Allergies/Adverse Reactions: Allergies Allergy/AdvReac Type Severity Reaction Status Date / Time codeine Allergy Verified 07/14/19 16:38 Visit Medications: Current Medications Acetaminophen (Acetaminophen 325 Mg Tab) 650 mg PO Q4H PRN PRN Reason: Headache/Fever/Mild Pain (1-3) Last Admin: 02/16/20 20:40 Dose: 650 mg Documented by: Acetaminophen (Acetaminophen 650 Mg Suppository) 650 mg VT Q4H PRN PRN Reason: Headache/Fever/Mild Pain (1-3) Albuterol Sulfate (Albuterol Sulfate 2.5 Mg/3 Ml Neb) 2.5 mg NEB Q4H PRN PRN Reason: SOB &/or Wheezing Aspirin (Aspirin 81 Mg Enteric Coated Tablet) 81 mg PO DAILY [facility] Last Admin: 02/17/20 08:22 Dose: 81 mg Documented by: Bisacodyl (Bisacodyl 10 Mg Supp) 10 mg [place] DAILYPRN PRN PRN Reason: Constipation Cyanocobalamin (Cyanocobalamin (Vitamin B-12) 1,000 Mcg Tab) 1,000 mcg PO DAILY [facility] Last Admin: 02/17/20 08:22 Dose: 1,000 mcg Documented by: Dextrose/Water (Dextrose 50% Abboject 50 Ml Syringe) 25 gm SLOW IVP PRN PRN PRN Reason: Hypoglycemia Docusate Sodium (Docusate 100 Mg Cap) 100 mg PO BID [facility] Doxycycline Hyclate (Doxycycline 100 Mg Cap) 100 mg PO BID [facility] Last Admin: 02/17/20 08:22 Dose: 100 mg Documented by: Famotidine (Famotidine 20 Mg Tab) 20 mg PO DAILY [facility] Last Admin: 02/17/20 08:22 Dose: 20 mg Documented by: Folic Acid (Folic Acid 1 Mg Tab) 1 mg PO DAILY [facility] Last Admin: 02/17/20 08:22 Dose: 1 mg Documented by: Furosemide (Furosemide 100 Mg/10 Ml Vial) 80 mg SLOW IVP BID [facility] Last Admin: 02/17/20 08:31 Dose: 80 mg Documented by: Glucagon (Glucagon 1 Mg/Ml Vial) 1 mg IM PRN PRN PRN Reason: Hypoglycemia Heparin Sodium (Porcine) (Heparin 5,000 Units/Ml Vial) 5,000 units SC BID [facility] Last Admin: 02/17/20 08:23 Dose: 5,000 units Documented by: Dextrose/Water (D5w) 1,000 mls @ 0 mls/hr IV .Q0M PRN PRN Reason: Hypoglycemia Cefepime HCl 0.5 gm/Miscellaneous Medication 1 each/ Sodium Chloride 100 mls @ 200 mls/hr IVPB 2100 [facility] Last Admin: 02/16/20 22:02 Dose: 100 mls Documented by: Insulin Human Regular (Insulin Regular 300 Units/3 Ml Vial) 0 units SC .MILD S LIDING SCALE PRN PRN Reason: Mild Correctional Scale Last Admin: 02/14/20 18:09 Dose: 4 unit Documented by: Metolazone (Metolazone 5 Mg Tab) 5 mg PO 0830 [facility] Last Admin: 02/17/20 08:22 Dose: 5 mg Documented by: Multivitamins (Multivit, Therapeutic 1 Tab) 1 tab PO DAILY [facility] Last Admin: 02/17/20 08:22 Dose: 1 tab Documented by: Polyethylene Glycol (Polyethylene Glycol 3350 17 Gm Packet) 17 gm PO BID [facility] Last Admin: 02/17/20 08:26 Dose: Not Given Documented by: Senna/Docusate Sodium (Senokot S 8.6-50 Mg Tab) 2 tab PO BID [facility] Last Admin: 02/17/20 08:26 Dose: Not Given Documented by: Sodium Chloride (Flush - Normal Saline 10 Ml Syringe) 10 ml IVF Q12HR [facility] Last Admin: 02/17/20 09:18 Dose: 10 ml Documented by: Sodium Chloride (Flush - Normal Saline 10 Ml Syringe) 10 ml IVF PRN PRN PRN Reason: Saline Flush Tramadol HCl (Tramadol Hcl 50 Mg Tab) 50 mg PO Q12H PRN PRN Reason: Moderate Pain (4-6) Last Admin: 02/16/20 20:40 Dose: 50 mg Documented by: Vital Signs & Weight: Vital Signs Temp Pulse Pulse Pulse Resp BP BP 02/17/20 15:33 97.7 F 98 20 02/17/20 11:32 97.8 F 84 20 02/17/20 10:55 84 84 130/66 133/65 02/17/20 09:12 106 H 120/80 02/17/20 08:03 02/17/20 07:22 98.4 F 91 20 BP Pulse Ox Pulse Ox Pulse Ox 02/17/20 15:33 137/73 97 02/17/20 11:32 139/69 98 02/17/20 10:55 98 98 02/17/20 09:12 96 02/17/20 08:03 98 02/17/20 07:22 143/69 H 97 Admit Weight 164 lb 8.128 oz Weight 150 lb 12.8 oz - Physical Exam General: no apparent distress HEENT: mucus membranes moist Neck: supple neck Cardiac: regular rate and rhythm Lungs: normal breath sounds Neuro: grossly intact Abdomen: active bowel sounds Extremities: 2+ LE edema Skin: clear Musculoskeletal: no pain - Labs Result Diagrams: 02/17/20 03:56 02/17/20 03:56 Troponin/CKMB CK-MB (CK-2) 3.3 ng/mL (0-6.6) 02/13/20 13:28 Troponin I 0.261 ng/mL (< 0.028) H 02/14/20 03:42 - Telemetry Sinus rhythms and dysrhythmias: sinus rhythm - Assessment/Plan Assessment/Plan: 1. Acute RV failure 2. Hypotension 3. BENJAMIN on CKD 4. UTI Sepsis 5. Hyperkalemia 6. Possible liver cirrhosis. PLAN: - Improved with diuresis and treatment with IV abx. - Continue IV lasix at current dose. - Creatinine continues to improve.
[2020-02-17] MEDS: Insulin Regular 300 UNITS/3 ML VIAL SC PRN (18:21)
[2020-02-17] MEDS: Cefepime 0.5 GM, Admixture Fee 1 EACH in Sodium Chloride 0.9% 100 ML IVPB SCH (21:45)
[2020-02-17] MEDS: Docusate 100 MG CAP PO SCH (21:46)
[2020-02-17] MEDS: Acetaminophen 325 MG TAB PO PRN (21:46)
[2020-02-18 04:59] LABS: ALT (SGPT) 62 U/L (8-55); AST (SGOT) 34 U/L (5-34); Albumin 3.9 g/dL (3.4-4.8); Alkaline Phosphatase 79 U/L (40-110); BUN (Urea Nitrogen) 63 mg/dL (9.8-20.1); Bilirubin, Total 0.8 mg/dL (0.2-1.2); Calc. Creatinine Clearance 28 mL/min (70-130); Calcium 10.6 mg/dL (7.8-10.44); Estimated GFR-MDRD 29; Globulin 3.2 g/dL (2.4-3.5); Glucose 133 mg/dL (83-110); Magnesium 1.8 mg/dL (1.6-2.6); Phosphorus 2.4 mg/dL (2.3-4.7); Protein, Total 7.1 g/dL (6.0-8.3)
[2020-02-18 05:03] LABS: Elliptocytes MODERATE= 6-15 cells (100X) (0-1/hpf); Eosinophils 6 % (0-10); Hemoglobin 12.8 g/dL (12.0-16.0); Lymphocytes 18 % (21-51); MDiff Complete? YES; Mean Corpuscular HGB CONC 31.6 g/dL (32.0-36.0); Mean Corpuscular Volume 98.2 fL (78.0-98.0); Mean Platelet Volume 9.5 fL (7.4-10.4); Monocytes 8 % (0-10); Neutrophil 68 % (42-75); Platelet Count 174 thou/uL (130-400); RBC Distribution Width 14.5 % (11.5-14.5); Red Blood Cell (RBC) Count 4.14 mill/uL (4.20-5.40); White Blood Cell (WBC) Count 8.3 thou/uL (4.8-10.8)
[2020-02-18 05:08] LABS: Anion Gap 20 mmol/L (10-20); Chloride 85 mmol/L (98-107); Potassium 3.5 mmol/L (3.5-5.1); Sodium 144 mmol/L (136-145)
[2020-02-18 05:14] LABS: Carbon Dioxide 43 mmol/L (23-31)
[2020-02-18] MEDS ORDERED: Potassium Chloride 20 MEQ TAB PO SCH (07:15)
[2020-02-18] MEDS: Furosemide 20 MG TAB PO SCH ×2 (08:31→21:19)
[2020-02-18] MEDS: Aspirin 81 mg Enteric Coated Tablet PO SCH (08:31)
[2020-02-18] MEDS: Multivit, Therapeutic 1 TAB PO SCH (08:31)
[2020-02-18] MEDS: Metolazone 5 MG TAB PO SCH (08:31)
[2020-02-18] MEDS: Docusate 100 MG CAP PO SCH ×2 (08:32→21:24)
[2020-02-18] MEDS: Doxycycline 100 MG CAP PO SCH ×2 (08:33→21:19)
[2020-02-18] MEDS: Heparin 5,000 UNITS/ML VIAL SC SCH ×2 (08:33→21:25)
[2020-02-18] MEDS: Famotidine 20 MG TAB PO SCH (08:33)
[2020-02-18] MEDS: Cyanocobalamin (Vitamin B-12) 1,000 MCG TAB PO SCH (08:33)
[2020-02-18] MEDS: Folic Acid 1 MG TAB PO SCH (08:33)
[2020-02-18] MEDS: Senokot S 8.6-50 MG TAB PO SCH ×2 (08:41→21:24)
[2020-02-18] MEDS: Polyethylene Glycol 3350 17 GM Packet PO SCH ×2 (08:41→21:25)
--- NOTE | 2020-02-18 10:50 | PDOC.NEPPN ---
- Subjective Encounter Date: 02/18/20 Subjective: Seen and examined. Reports feeling better. Still having bilateral lower extremity pain/tendereness. No fever or chills. - Objective Vital Signs & Weight: Vital Signs (12 hours) Temp Pulse Resp BP Pulse Ox 02/18/20 08:14 95 02/18/20 07:32 97.6 F 90 20 140/91 H 95 02/18/20 04:00 97.9 F 94 18 165/77 H 96 Weight Admit Weight 164 lb 8.128 oz Weight 141 lb 8 oz Most Recent Monitor Data Heart Rate from ECG 90 NIBP 114/55 NIBP BP-Mean 74 Respiration from ECG 18 SpO2 100 I&O: 02/17/20 02/18/20 02/19/20 06:59 06:59 06:59 Intake Total 580 720 Output Total 2650 3850 Balance -9530 -0669 Result Diagrams: 02/18/20 04:04 02/18/20 04:04 Additional Labs: Accuchecks 02/18/20 02/17/20 00:13 12:12 POC Glucose 128 H 88 Nephrology ROS - Medication Medications: Active Medications Generic Name Dose Route Start Last Admin Trade Name Freq PRN Reason Stop Dose Admin Acetaminophen 650 mg 02/13/20 15:09 02/17/20 21:46 Acetaminophen 325 Mg Tab PO 650 mg Q4H PRN Administration Headache/Fever/Mild Pain (1-3) Aspirin 81 mg 02/16/20 09:00 02/18/20 08:31 Aspirin 81 Mg Enteric Coated Tablet PO 81 mg DAILY ALEX Administration Cyanocobalamin 1,000 mcg 02/16/20 09:00 02/18/20 08:33 Cyanocobalamin (Vitamin B-12) 1,000 Mcg Tab PO 1,000 mcg DAILY ALEX Administration Docusate Sodium 100 mg 02/17/20 21:00 02/18/20 08:32 Docusate 100 Mg Cap PO 100 mg BID ALEX Administration Doxycycline Hyclate 100 mg 02/15/20 21:00 02/18/20 08:33 Doxycycline 100 Mg Cap PO 100 mg BID ALEX Administration Famotidine 20 mg 02/16/20 09:00 02/18/20 08:33 Famotidine 20 Mg Tab PO 20 mg DAILY ALEX Administration Folic Acid 1 mg 02/14/20 09:00 02/18/20 08:33 Folic Acid 1 Mg Tab PO 1 mg DAILY ALEX Administration Furosemide 80 mg 02/18/20 09:00 02/18/20 08:31 Furosemide 20 Mg Tab PO 80 mg BID ALEX Administration Heparin Sodium (Porcine) 5,000 units 02/16/20 21:00 02/18/20 08:33 Heparin 5,000 Units/Ml Vial SC 5,000 units BID ALEX Administration Cefepime HCl 0.5 gm/ 100 mls @ 200 mls/hr 02/15/20 21:00 02/17/20 21:45 Miscellaneous Medication 1 IVPB 100 mls each/ Sodium Chloride 2100 ALEX Administration Insulin Human Regular 0 units 02/13/20 17:05 02/17/20 18:21 Insulin Regular 300 Units/3 Ml Vial SC 2 unit .MILD SLIDING SCALE PRN Administration Mild Correctional Scale Metolazone 5 mg 02/16/20 08:30 02/18/20 08:31 Metolazone 5 Mg Tab PO 5 mg 0830 ALEX Administration Multivitamins 1 tab 02/16/20 09:00 02/18/20 08:31 Multivit, Therapeutic 1 Tab PO 1 tab DAILY ALEX Administration Polyethylene Glycol 17 gm 02/13/20 21:00 02/18/20 08:41 Polyethylene Glycol 3350 17 Gm Packet PO 17 gm BID ALEX Administration Senna/Docusate Sodium 2 tab 02/13/20 21:00 02/18/20 08:41 Senokot S 8.6-50 Mg Tab PO 2 tab BID ALEX Administration Sodium Chloride 10 ml 02/15/20 21:00 02/18/20 08:41 Flush - Normal Saline 10 Ml Syringe IVF 10 ml Q12HR ALEX Administration Tramadol HCl 50 mg 02/15/20 16:54 02/16/20 20:40 Tramadol Hcl 50 Mg Tab PO 50 mg Q12H PRN Administration Moderate Pain (4-6) - Exam General Appearance: awake alert General - other findings: chronically ill looking Eye: anicteric sclera ENT: normocephalic atraumatic Neck: supple, symmetric Respiratory - other findings: fair air entry with transmitted sound. work of breathing mildly increased Cardiovascular: RRR Gastrointestinal: soft, non-tender, non-distended, normal bowel sounds Extremities - other findings: mild to moderate bilateral lower extremity edema Neurological: CN's grossly intact Neurological - other findings: power 4+/5 upper limbs and 2/5 lower limbs PSYCH: A&O x 3 Nephrology Results - Labs Result Diagrams: 02/18/20 04:04 02/18/20 04:04 Lab results: WBC 8.3 thou/uL (4.8-10.8) 02/18/20 04:04 Hgb 12.8 g/dL (12.0-16.0) 02/18/20 04:04 Hct 40.7 % (36.0-47.0) 02/18/20 04:04 MCV 98.2 fL (78.0-98.0) H 02/18/20 04:04 Plt Count 174 thou/uL (130-400) 02/18/20 04:04 Neutrophils % 91.2 % (42.0-75.0) H 02/13/20 09:54 Band Neuts % (Manual) 2 % (5-11) L 02/17/20 03:56 ABG pH 7.43 (7.35-7.45) 02/15/20 07:24 ABG pCO2 51.5 mmHg (35.0-45.0) H 02/15/20 07:24 ABG pO2 59.3 mmHg (> 70.0) L* 02/15/20 07:24 Sodium 144 mmol/L (136-145) 02/18/20 04:04 Potassium 3.5 mmol/L (3.5-5.1) 02/18/20 04:04 Chloride 85 mmol/L (98-107) L 02/18/20 04:04 Carbon Dioxide 43 mmol/L (23-31) H* 02/18/20 04:04 BUN 63 mg/dL (9.8-20.1) H 02/18/20 04:04 Creatinine 1.69 mg/dL (0.6-1.1) H 02/18/20 04:04 Glucose 133 mg/dL (83-110) H 02/18/20 04:04 Lactic Acid 2.0 mmol/L (0.5-2.2) 02/13/20 13:28 Calcium 10.6 mg/dL (7.8-10.44) H 02/18/20 04:04 Total Bilirubin 0.8 mg/dL (0.2-1.2) 02/18/20 04:04 AST 34 U/L (5-34) 02/18/20 04:04 ALT 62 U/L (8-55) H 02/18/20 04:04 Alkaline Phosphatase 79 U/L (40-110) 02/18/20 04:04 CK-MB (CK-2) 3.3 ng/mL (0-6.6) 02/13/20 13:28 Troponin I 0.261 ng/mL (< 0.028) H 02/14/20 03:42 B-Natriuretic Peptide 2604.7 pg/mL (0-100) H 02/13/20 09:54 Serum Total Protein 7.1 g/dL (6.0-8.3) 02/18/20 04:04 Albumin 3.9 g/dL (3.4-4.8) 02/18/20 04:04 Urine Ketones Negative mg/dL (Negative) 02/13/20 10:24 Urine Blood 3+ (Negative) A 02/13/20 10:24 Urine Nitrite Negative (Negative) 02/13/20 10:24 Ur Leukocyte Esterase 500 Melanie/uL (Negative) A 02/13/20 10:24 Urine RBC 21-50 HPF (0-3) A 02/13/20 10:24 Urine WBC Greater than 50 HPF (0-3) A 02/13/20 10:24 Ur Squamous Epith Cells 0-3 HPF (0-3) 02/13/20 10:24 Urine Bacteria 4+ HPF (None Seen) A 02/13/20 10:24 Sodium 144 mmol/L (136-145) 02/18/20 04:04 Potassium 3.5 mmol/L (3.5-5.1) 02/18/20 04:04 Chloride 85 mmol/L (98-107) L 02/18/20 04:04 Carbon Dioxide 43 mmol/L (23-31) H* 02/18/20 04:04 Anion Gap 20 mmol/L (-20) 02/18/20 04:04 BUN 63 mg/dL (9.8-20.1) H 02/18/20 04:04 Creatinine 1.69 mg/dL (0.6-1.1) H 02/18/20 04:04 Glucose 133 mg/dL (83-110) H 02/18/20 04:04 Calcium 10.6 mg/dL (7.8-10.44) H 02/18/20 04:04 Phosphorus 2.4 mg/dL (2.3-4.7) 02/18/20 04:04 Magnesium 1.8 mg/dL (1.6-2.6) 02/18/20 04:04 Albumin 3.9 g/dL (3.4-4.8) 02/18/20 04:04 Nephrology AP PN - Plan BENJAMIN: Due to hemodynamical factors related to circulatory shock and cardiorenal syndrome. BUN and creat continue to trend down with diuresis. CKD stage 3 Hyperkalemia: Most likely due to renal failure, potassium supplementation and shift related to acidosis. Resolved. Hypokalemia: due to diuretic therapy Acidosis: metabolic and respiratory. Improved. Alkalosis: Most likely related to intravascular contraction with possible contribution from metabolic compensation of respiratory acidosis. worse today Acute on chronic right heart failure. Anasarca: Due to cardiac decompensation. Improving with diuretics. Circulatory shock/Hypotension: Due to cardiac decompensation and sepsis. has BENJAMIN and abnormal LFT. Improved. off pressor. Acute respiratory failure with hypercarbia. Improved. Sepsis: 2/2 right lower extremity cellulitis and Urinary tract infection Abnormal liver function tests. Shock +/- Cirrhosis. Possible Liver Cirrhosis. CT abdomen was suggestive but US ruled it out. Presumed urinary tract infection. Diabetes mellitus, on metformin. Pulmonary HTN. Presumed PE Protein calorie malnutrition Plan Acetozalamide therapy is contemplated. Get ABG for assessment of acid base derangement Change lasix to oral. Continue metolazone. Supplement potassium in view on continued diuretic therapy Monitor renal function and electrolytes. Other treatments as per cardiology and primary attending.
[2020-02-18 11:04] LABS: Actual Bicarbonate (HCO3a) 54.2 mEq/L (22-28); Base Excess (BEa) 26.1 mEq/L (-2.0 to +3.0); Carboxyhemoglobin (COHb) 1.5 gm% (0.0-3.0); Hemoglobin (Hb) 14.1 g/dL (12.0-16.0); O2 Tension (PaO2), arterial 58.7 mmHg (> 70.0); Potassium - ABG Lab 3.48 mmol/L (3.70-5.30); pH, Arterial 7.51 (7.35-7.45)
[2020-02-18 11:05] LABS: Puncture Site RRA
[2020-02-18] MEDS: Insulin Regular 300 UNITS/3 ML VIAL SC PRN (11:57)
[2020-02-18] MEDS ORDERED: AcetaZOLAMIDE ER 500 MG CAP PO SCH (12:15)
--- NOTE | 2020-02-18 16:42 | PDOC.CPN ---
- Subjective Date: 02/18/20 Time: 16:39 Interval history: She is much more awake. She was sitting on the side of the bed on her own and asked me to help her get back in bed. Her breathing is at baseline per her report. - Review of Systems General: denies: fever/chills, weight/appetite/sleep changes, night sweats, fatigue Respiratory: denies: cough, congestion, shortness of breath, exercise intolerance Cardiovascular: denies: chest pain, palpitation, edema, paroxysmal nocturnal dyspnea, orthopnea Gastrointestinal: denies: nausea, vomiting, diarrhea, constipation, abd pain, GI bleeding Musculoskeletal: denies: pain, tenderness, stiffness, swelling, arthritis/arthralgias Neurological: denies: numbness, syncope, seizure, weakness - Objective Allergies/Adverse Reactions: Allergies Allergy/AdvReac Type Severity Reaction Status Date / Time codeine Allergy Verified 07/14/19 16:38 Visit Medications: Current Medications Acetaminophen (Acetaminophen 325 Mg Tab) 650 mg PO Q4H PRN PRN Reason: Headache/Fever/Mild Pain (1-3) Last Admin: 02/17/20 21:46 Dose: 650 mg Documented by: Acetaminophen (Acetaminophen 650 Mg Suppository) 650 mg MI Q4H PRN PRN Reason: Headache/Fever/Mild Pain (1-3) Albuterol/Ipratropium (Ipratropium/Albuterol Sulfate 3 Ml Neb) 3 ml NEB [id number] ON LICENSE OF [facility] Last Admin: 02/18/20 14:26 Dose: Not Given Documented by: Aspirin (Aspirin 81 Mg Enteric Coated Tablet) 81 mg PO DAILY ON LICENSE OF [facility] Last Admin: 02/18/20 08:31 Dose: 81 mg Documented by: Bisacodyl (Bisacodyl 10 Mg Supp) 10 mg MI DAILYPRN PRN PRN Reason: Constipation Budesonide (Budesonide 0.5 Mg/2 Ml Neb) 0.5 mg NEB BID-RT ON LICENSE OF [facility] Cyanocobalamin (Cyanocobalamin (Vitamin B-12) 1,000 Mcg Tab) 1,000 mcg PO DAILY ON LICENSE OF [facility] Last Admin: 02/18/20 08:33 Dose: 1,000 mcg Documented by: Dextrose/Water (Dextrose 50% Abboject 50 Ml Syringe) 25 gm SLOW IVP PRN PRN PRN Reason: Hypoglycemia Docusate Sodium (Docusate 100 Mg Cap) 100 mg PO BID ON LICENSE OF [facility] Last Admin: 02/18/20 08:32 Dose: 100 mg Documented by: Doxycycline Hyclate (Doxycycline 100 Mg Cap) 100 mg PO BID ON LICENSE OF [facility] Last Admin: 02/18/20 08:33 Dose: 100 mg Documented by: Famotidine (Famotidine 20 Mg Tab) 20 mg PO DAILY ON LICENSE OF [facility] Last Admin: 02/18/20 08:33 Dose: 20 mg Documented by: Folic Acid (Folic Acid 1 Mg Tab) 1 mg PO DAILY ON LICENSE OF [facility] Last Admin: 02/18/20 08:33 Dose: 1 mg Documented by: Furosemide (Furosemide 20 Mg Tab) 80 mg PO BID ON LICENSE OF [facility] Last Admin: 02/18/20 08:31 Dose: 80 mg Documented by: Glucagon (Glucagon 1 Mg/Ml Vial) 1 mg IM PRN PRN PRN Reason: Hypoglycemia Heparin Sodium (Porcine) (Heparin 5,000 Units/Ml Vial) 5,000 units SC BID ON LICENSE OF [facility] Last Admin: 02/18/20 08:33 Dose: 5,000 units Documented by: Dextrose/Water (D5w) 1,000 mls @ 0 mls/hr IV .Q0M PRN PRN Reason: Hypoglycemia Cefepime HCl 0.5 gm/Miscellaneous Medication 1 each/ Sodium Chloride 100 mls @ 200 mls/hr IVPB 2100 ON LICENSE OF [facility] Last Admin: 02/17/20 21:45 Dose: 100 mls Documented by: Insulin Human Regular (Insulin Regular 300 Units/3 Ml Vial) 0 units SC .MILD SLIDING SCALE PRN PRN Reason: Mild Correctional Scale Last Admin: 02/18/20 11:57 Dose: 2 unit Documented by: Metolazone (Metolazone 5 Mg Tab) 5 mg PO 0830 ON LICENSE OF [facility] Last Admin: 02/18/20 08:31 Dose: 5 mg Documented by: Multivitamins (Multivit, Therapeutic 1 Tab) 1 tab PO DAILY ON LICENSE OF [facility] Last Admin: 02/18/20 08:31 Dose: 1 tab Documented by: Polyethylene Glycol (Polyethylene Glycol 3350 17 Gm Packet) 17 gm PO BID ON LICENSE OF [facility] Last Admin: 02/18/20 08:41 Dose: 17 gm Documented by: Senna/Docusate Sodium (Senokot S 8.6-50 Mg Tab) 2 tab PO BID ON LICENSE OF [facility] Last Admin: 02/18/20 08:41 Dose: 2 tab Documented by: Sodium Chloride (Flush - Normal Saline 10 Ml Syringe) 10 ml IVF Q12HR ALEX Last Admin: 02/18/20 08:41 Dose: 10 ml Documented by: Sodium Chloride (Flush - Normal Saline 10 Ml Syringe) 10 ml IVF PRN PRN PRN Reason: Saline Flush Tramadol HCl (Tramadol Hcl 50 Mg Tab) 50 mg PO Q12H PRN PRN Reason: Moderate Pain (4-6) Last Admin: 02/16/20 20:40 Dose: 50 mg Documented by: Vital Signs & Weight: Vital Signs Temp Pulse Resp BP Pulse Ox 02/18/20 11:45 98.1 F 100 14 123/58 L 98 02/18/20 08:14 95 02/18/20 07:32 97.6 F 90 20 140/91 H 95 Admit Weight 164 lb 8.128 oz Weight 141 lb 8 oz - Physical Exam General: no apparent distress HEENT: mucus membranes moist Neck: supple neck Cardiac: regular rate and rhythm Lungs: normal breath sounds Neuro: grossly intact Abdomen: unremarkable Extremities: 2+ LE edema Skin: clear Musculoskeletal: no pain - Labs Result Diagrams: 02/18/20 04:04 02/18/20 04:04 Troponin/CKMB CK-MB (CK-2) 3.3 ng/mL (0-6.6) 02/13/20 13:28 Troponin I 0.261 ng/mL (< 0.028) H 02/14/20 03:42 - Telemetry Sinus rhythms and dysrhythmias: sinus rhythm - Assessment/Plan Assessment/Plan: 1. Acute RV failure, improved. 2. Hypotension 3. BENJAMIN on CKD 4. UTI Sepsis 5. Hyperkalemia. PLAN: - Creatinine continues to improve with diuresis. - Mentation is significantly improved. - Contraction alkalosis, would cut back on lasix now.
--- NOTE | 2020-02-18 17:25 | PDOC.PALPN ---
Palliative Progress Note - Subjective Weakness, but alert. Mild pain/aches to lower extremities. Does not desire to have any further aggressive interventions. - Objective Vital Signs: Vital Signs - Most Recent Temp Pulse Resp BP Pulse Ox 98.4 F 98 16 118/65 98 02/18/20 16:12 02/18/20 16:12 02/18/20 16:12 02/18/20 16:12 02/18/20 16:12 - Physical Exam Constitutional: cachectic, emaciated, ill appearing HEENT: moist MMs, sclera anicteric Respiratory: no wheezing, diminished lung sound Cardiovascular: RRR Gastrointestinal: soft, non-tender, positive bowel sounds Genitourinary: vanessa catheter Musculoskeletal: edema present, diffuse muscle atrophy Neurology: moves all 4 limbs, no focal deficits Skin: fragile Psychiatric: A&O x 3, normal mood - Assessment (1) Respiratory failure Code(s): J96.90 - RESPIRATORY FAILURE, UNSP, UNSP W HYPOXIA OR HYPERCAPNIA Current Visit: Yes Status: Acute (2) Kidney disease, chronic, stage II (GFR 60-89 ml/min) Code(s): N18.2 - CHRONIC KIDNEY DISEASE, STAGE 2 (MILD) Current Visit: Yes Status: Acute (3) Palliative care encounter Code(s): Z51.5 - ENCOUNTER FOR PALLIATIVE CARE Current Visit: Yes Status: Acute (4) Right-sided heart failure Current Visit: Yes Status: Acute - Plan Plan: Ms Humphreys and her daughter are desiring to seek hospice care when she returns to [facility]. Discussed benefits of hospice, and secondary to patient desire to not return to hospital setting optimal discharge as patient is desiring to manage symptoms of chronic disease processes. Daughters concern was visitation. [facility] confirmed (as of current measures) that they are allowing visitors with negative covid, family must be screened prior to entering and have Covid test every two weeks. Palliative Care will follow up 02/18 and obtain choice letter for patient and co mmunicate with CM Communicated with Dr Christina prior to conversation in relation to introducing hospice as an option in addressing GOC and confirmation of patient wishes. [35] minutes spent on this encounter with >50% of the time in counseling and coordination of care. - ROS Constitutional: alert, loss appetite, weakness Respiratory: shortness of breath with extertion Cardiology: other (negative for chest pain, palpitations) Gastrointestinal: other (negative for nausea, vomiting) Musculoskeletal: arthritis/arthralgias, leg pain
[2020-02-18] MEDS: Budesonide 0.5 MG/2 ML NEB NEB SCH (19:06)
--- NOTE | 2020-02-18 19:10 | PDOC.HOSPP ---
- Subjective Encounter Date: 02/18/20 Encounter Time: 16:00 Subjective: Patient seen and examined for respiratory failure/right-sided heart failure. Short of breath on minimal exertion. Feels generally weak. Somnolent. ABGs earlier was consistent with respiratory acidosis. - Objective Vital Signs & Weight: Vital Signs (12 hours) Temp Pulse Resp BP Pulse Ox 02/18/20 16:12 98.4 F 98 16 118/65 98 02/18/20 11:45 98.1 F 100 14 123/58 L 98 02/18/20 08:14 95 02/18/20 07:32 97.6 F 90 20 140/91 H 95 Weight Admit Weight 164 lb 8.128 oz Weight 141 lb 8 oz Most Recent Monitor Data Heart Rate from ECG 90 NIBP 114/55 NIBP BP-Mean 74 Respiration from ECG 18 SpO2 100 I&O: 02/17/20 02/18/20 02/19/20 06:59 06:59 06:59 Intake Total 580 720 Output Total 2650 3850 Balance -0 -3129 Result Diagrams: 02/19/20 03:50 02/19/20 03:50 Additional Labs: Accuchecks 02/18/20 02/18/20 02/18/20 16:13 10:48 00:13 POC Glucose 100 168 H 128 H 02/17/20 17:12 POC Glucose 171 H Abnormal Lab Results - Last 48 hrs 02/18/20 04:04: Chloride 85 L, Carbon Dioxide 43 H*, BUN 63 H, Creatinine 1.69 H, Calcium 10.6 H, ALT 62 H 02/18/20 04:04: RBC 4.14 L, MCV 98.2 H, MCHC 31.6 L, Lymphocytes % (Manual) 18 L, Elliptocytes MODERATE= 6-15 cells H 02/18/20 10:51: Bicarbonate Actual 54.2 H, ABG pH 7.51 H, ABG pCO2 69.0 H*, ABG pO2 58.7 L*, ABG O2 Sat (Measured) 91.1 L, ABG O2 Content 17.7 L, ABG Base Excess 26.1 H, ABG Oxyhemoglobin 89.5 L, ABG Deoxyhemoglobin 8.7 H, Potassium 3.48 L, Chloride 85 L Microbiology - Entire Visit 02/13/20 10:36 Venous blood - Left Hand Blood Culture - Final NO GROWTH IN 5 DAYS 02/13/20 10:36 Venous blood - Right Hand Blood Culture - Final NO GROWTH IN 5 DAYS 02/15/20 17:25 Urine vanessa catheter Urine Culture - Final NO GROWTH AT 48 HOURS 02/16/20 12:45 Stool C. difficile GDH Antigen & Toxins - Final EKG Reviewed by me: Yes (Sinus rhythm on telemetry) Hospitalist ROS - Review of Systems Cardiovascular: reports: edema. denies: chest pain, palpitations, orthopnea, paroxysmal noc. dyspnea, light headedness, other Gastrointestinal: denies: nausea, vomiting, abdominal pain, diarrhea, constipation, melena, hematochezia, other - Medication Medications: Active Medications Generic Name Dose Route Start Last Admin Trade Name Freq PRN Reason Stop Dose Admin Acetaminophen 650 mg 02/13/20 15:09 02/17/20 21:46 Acetaminophen 325 Mg Tab PO 650 mg Q4H PRN Administration Headache/Fever/Mild Pain (1-3) Albuterol/Ipratropium 3 ml 02/18/20 13:00 02/18/20 14:26 Ipratropium/Albuterol Sulfate 3 Ml Neb NEB Not Given [id number] ALEX Aspirin 81 mg 02/16/20 09:00 02/18/20 08:31 Aspirin 81 Mg Enteric Coated Tablet PO 81 mg DAILY ALEX Administration Cyanocobalamin 1,000 mcg 02/16/20 09:00 02/18/20 08:33 Cyanocobalamin (Vitamin B-12) 1,000 Mcg Tab PO 1,000 mcg DAILY ALEX Administration Docusate Sodium 100 mg 02/17/20 21:00 02/18/20 08:32 Docusate 100 Mg Cap PO 100 mg BID ALEX Administration Doxycycline Hyclate 100 mg 02/15/20 21:00 02/18/20 08:33 Doxycycline 100 Mg Cap PO 100 mg BID ALEX Administration Famotidine 20 mg 02/16/20 09:00 02/18/20 08:33 Famotidine 20 Mg Tab PO 20 mg DAILY ALEX Administration Folic Acid 1 mg 02/14/20 09:00 02/18/20 08:33 Folic Acid 1 Mg Tab PO 1 mg DAILY ALEX Administration Furosemide 80 mg 02/18/20 09:00 02/18/20 08:31 Furosemide 20 Mg Tab PO 80 mg BID ALEX Administration Heparin Sodium (Porcine) 5,000 units 02/16/20 21:00 02/18/20 08:33 Heparin 5,000 Units/Ml Vial SC 5,000 units BID ALEX Administration Cefepime HCl 0.5 gm/ 100 mls @ 200 mls/hr 02/15/20 21:00 02/17/20 21:45 Miscellaneous Medication 1 IVPB 100 mls each/ Sodium Chloride 2100 ALEX Administration Insulin Human Regular 0 units 02/13/20 17:05 02/18/20 11:57 Insulin Regular 300 Units/3 Ml Vial SC 2 unit .MILD SLIDING SCALE PRN Administration Mild Correctional Scale Multivitamins 1 tab 02/16/20 09:00 02/18/20 08:31 Multivit, Therapeutic 1 Tab PO 1 tab DAILY ALEX Administration Polyethylene Glycol 17 gm 02/13/20 21:00 02/18/20 08:41 Polyethylene Glycol 3350 17 Gm Packet PO 17 gm BID ALEX Administration Senna/Docusate Sodium 2 tab 02/13/20 21:00 02/18/20 08:41 Senokot S 8.6-50 Mg Tab PO 2 tab BID ALEX Administration Sodium Chloride 10 ml 02/15/20 21:00 02/18/20 08:41 Flush - Normal Saline 10 Ml Syringe IVF 10 ml Q12HR ALEX Administration Tramadol HCl 50 mg 02/15/20 16:54 02/16/20 20:40 Tramadol Hcl 50 Mg Tab PO 50 mg Q12H PRN Administration Moderate Pain (4-6) - Exam General Appearance: ill appearing Heart: RRR, no gallops Respiratory: no wheezes, rales, rhonchi Gastrointestinal: non-tender, non-distended Extremities: no cyanosis, no clubbing Psychiatric: somnolent Hosp A/P - Plan DVT proph w/heparin Generalized weakness/Toxic metabolic encephalopathy, multifactorial. Acute hypoxic and hypercapnic respiratory failure requiring noninvasive positive pressure ventilation Acute on chronic right-sided congestive heart failure exacerbation due to suspected pulmonary embolism. S/p heparin drip from 02/13 -02/15 Acute kidney injury on chronic kidney disease stage 2. ? Cardiorenal syndrome Metabolic acidosis Generalized anasarca Hypotension requiring pressors - prob due to Sepsis ? Septic shock - POA Sepsis due to urinary tract infection. NSVT Hyponatremia/hypokalemia/hypomagnesemia Macrocytosis. Abnormal LFTs due to passive hepatic congestion. Gastroesophageal reflux disease. Diabetes mellitus type 2. Chronic pain syndrome. Chronic insomnia. Constipation/Lactic acidosis/Type 2 myocardial infarction/hyperkalemia. - resolved PLAN: Patient more somnolent today. Blood gases consistent with respiratory acidosis with PCO2 of 69. Patient will probably benefit from noninvasive positive pressure ventilation. Will transfer to [facility]. Family updated. Diuretics changed to p.o. Acetazolamide added due to metabolic alkalosis. Continue antibiotics. Continue metolazone. Recheck labs in a.m. Family updated. FMLA form for patient's daughter from [place] was completed and faxed.
[2020-02-18] MEDS: Cefepime 0.5 GM, Admixture Fee 1 EACH in Sodium Chloride 0.9% 100 ML IVPB SCH (21:18)
[2020-02-18] MEDS ORDERED: HumaLOG 300 UNITS/3 ML VIAL SC PRN (21:39)
[2020-02-19 00:14] LABS: Actual Bicarbonate (HCO3a) 50.1 mEq/L (22-28); CO2 Tension 57.4 mmHg (35.0-45.0); Calcium, Ionized (arterial) 1.19 mmol/L (1.12-1.30); Carboxyhemoglobin (COHb) 1.6 gm% (0.0-3.0); Hemoglobin (Hb) 13.5 g/dL (12.0-16.0); Potassium - ABG Lab 3.33 mmol/L (3.70-5.30)
[2020-02-19 00:16] LABS: O2 Tension (PaO2), arterial 48.5 mmHg (> 70.0); pH, Arterial 7.56 (7.35-7.45)
[2020-02-19 00:17] LABS: Puncture Site RR
[2020-02-19 04:56] LABS: ALT (SGPT) 47 U/L (8-55); AST (SGOT) 25 U/L (5-34); Albumin 3.8 g/dL (3.4-4.8); Alkaline Phosphatase 73 U/L (40-110); BUN (Urea Nitrogen) 63 mg/dL (9.8-20.1); Bilirubin, Total 0.9 mg/dL (0.2-1.2); Calc. Creatinine Clearance 25 mL/min (70-130); Calcium 10.8 mg/dL (7.8-10.44); Estimated GFR-MDRD 26; Globulin 3.4 g/dL (2.4-3.5); Glucose 111 mg/dL (83-110); Protein, Total 7.2 g/dL (6.0-8.3)
[2020-02-19 05:05] LABS: Anion Gap 23 mmol/L (10-20); Carbon Dioxide 40 mmol/L (23-31); Chloride 85 mmol/L (98-107); Potassium 3.5 mmol/L (3.5-5.1); Sodium 144 mmol/L (136-145)
[2020-02-19 05:36] LABS: Band 5 % (5-11); Eosinophils 5 % (0-10); Hemoglobin 12.7 g/dL (12.0-16.0); Lymphocytes 24 % (21-51); MDiff Complete? YES; Mean Corpuscular HGB CONC 31.7 g/dL (32.0-36.0); Mean Platelet Volume 9.1 fL (7.4-10.4); Monocytes 11 % (0-10); Myelocyte 1 % (0-0); Neutrophil 54 % (42-75); Platelet Count 183 thou/uL (130-400); RBC Distribution Width 14.5 % (11.5-14.5); White Blood Cell (WBC) Count 8.9 thou/uL (4.8-10.8)
[2020-02-19] MEDS: Budesonide 0.5 MG/2 ML NEB NEB SCH ×2 (07:02→19:16)
[2020-02-19] MEDS: Aspirin 81 mg Enteric Coated Tablet PO SCH (08:35)
[2020-02-19] MEDS: Docusate 100 MG CAP PO SCH ×2 (08:35→21:46)
[2020-02-19] MEDS: Famotidine 20 MG TAB PO SCH (08:35)
[2020-02-19] MEDS: Furosemide 20 MG TAB PO SCH (08:35)
[2020-02-19] MEDS: Cyanocobalamin (Vitamin B-12) 1,000 MCG TAB PO SCH (08:35)
[2020-02-19] MEDS: Doxycycline 100 MG CAP PO SCH ×2 (08:35→21:46)
[2020-02-19] MEDS: Folic Acid 1 MG TAB PO SCH (08:35)
[2020-02-19] MEDS: Multivit, Therapeutic 1 TAB PO SCH (08:36)
[2020-02-19] MEDS: Heparin 5,000 UNITS/ML VIAL SC SCH ×2 (08:36→21:46)
[2020-02-19] MEDS: Senokot S 8.6-50 MG TAB PO SCH ×2 (08:36→21:46)
[2020-02-19] MEDS: Polyethylene Glycol 3350 17 GM Packet PO SCH ×2 (08:36→21:46)
[2020-02-19] MEDS ORDERED: acetaZOLAMIDE Sodium 500 mg Vial IVP SCH (09:00)
[2020-02-19] MEDS: Insulin Regular 300 UNITS/3 ML VIAL SC PRN (11:46)
[2020-02-19] MEDS ORDERED: Insulin Regular 300 UNITS/3 ML VIAL SC PRN (11:59)
--- NOTE | 2020-02-19 12:53 | PDOC.CPN ---
- Subjective Date: 02/19/20 Time: 12:51 Interval history: She is a little more sleepy today but arousable. Breathing at baseline. - Review of Systems ROS unobtainable: due to mental status - Objective Allergies/Adverse Reactions: Allergies Allergy/AdvReac Type Severity Reaction Status Date / Time codeine Allergy Verified 07/14/19 16:38 Visit Medications: Current Medications Acetaminophen (Acetaminophen 325 Mg Tab) 650 mg PO Q4H PRN PRN Reason: Headache/Fever/Mild Pain (1-3) Last Admin: 02/17/20 21:46 Dose: 650 mg Documented by: Acetaminophen (Acetaminophen 650 Mg Suppository) 650 mg SD Q4H PRN PRN Reason: Headache/Fever/Mild Pain (1-3) Albuterol/Ipratropium (Ipratropium/Albuterol Sulfate 3 Ml Neb) 3 ml NEB [id number] [facility] Last Admin: 02/19/20 07:02 Dose: 3 ml Documented by: Aspirin (Aspirin 81 Mg Enteric Coated Tablet) 81 mg PO DAILY [facility] Last Admin: 02/19/20 08:35 Dose: 81 mg Documented by: Bisacodyl (Bisacodyl 10 Mg Supp) 10 mg SD DAILYPRN PRN PRN Reason: Constipation Budesonide (Budesonide 0.5 Mg/2 Ml Neb) 0.5 mg NEB BID-RT [facility] Last Admin: 02/19/20 07:02 Dose: 0.5 mg Documented by: Cyanocobalamin (Cyanocobalamin (Vitamin B-12) 1,000 Mcg Tab) 1,000 mcg PO DAILY [facility] Last Admin: 02/19/20 08:35 Dose: 1,000 mcg Documented by: Dextrose/Water (Dextrose 50% Abboject 50 Ml Syringe) 25 gm SLOW IVP PRN PRN PRN Reason: Hypoglycemia Docusate Sodium (Docusate 100 Mg Cap) 100 mg PO BID [facility] Last Admin: 02/19/20 08:35 Dose: 100 mg Documented by: Doxycycline Hyclate (Doxycycline 100 Mg Cap) 100 mg PO BID [facility] Last Admin: 02/19/20 08:35 Dose: 100 mg Documented by: Famotidine (Famotidine 20 Mg Tab) 20 mg PO DAILY [facility] Last Admin: 02/19/20 08:35 Dose: 20 mg Documented by: Folic Acid (Folic Acid 1 Mg Tab) 1 mg PO DAILY [facility] Last Admin: 02/19/20 08:35 Dose: 1 mg Documented by: Furosemide (Furosemide 20 Mg Tab) 20 mg PO 0900,1400 [facility] Glucagon (Glucagon 1 Mg/Ml Vial) 1 mg IM PRN PRN PRN Reason: Hypoglycemia Heparin Sodium (Porcine) (Heparin 5,000 Units/Ml Vial) 5,000 units SC BID [facility] Last Admin: 02/19/20 08:36 Dose: 5,000 units Documented by: Dextrose/Water (D5w) 1,000 mls @ 0 mls/hr IV .Q0M PRN PRN Reason: Hypoglycemia Cefepime HCl 0.5 gm/Miscellaneous Medication 1 each/ Sodium Chloride 100 mls @ 200 mls/hr IVPB 2100 [facility] Last Admin: 02/18/20 21:18 Dose: 100 mls Documented by: Insulin Human Regular (Insulin Regular 300 Units/3 Ml Vial) 0 units SC .MILD SLIDING SCALE PRN PRN Reason: Mild Correctional Scale Last Admin: 02/19/20 11:46 Dose: 3 unit Documented by: Insulin Human Regular (Insulin Regular 300 Units/3 Ml Vial) 0 units SC .BEDTIME SLIDING SC PRN PRN Reason: Bedtime Correctional Scale Multivitamins (Multivit, Therapeutic 1 Tab) 1 tab PO DAILY [facility] Last Admin: 02/19/20 08:36 Dose: 1 tab Documented by: Polyethylene Glycol (Polyethylene Glycol 3350 17 Gm Packet) 17 gm PO BID [facility] Last Admin: 02/19/20 08:36 Dose: 17 gm Documented by: Senna/Docusate Sodium (Senokot S 8.6-50 Mg Tab) 2 tab PO BID [facility] Last Admin: 02/19/20 08:36 Dose: 2 tab Documented by: Sodium Chloride (Flush - Normal Saline 10 Ml Syringe) 10 ml IVF Q12HR [facility] Last Admin: 02/19/20 08:56 Dose: 10 ml Documented by: Sodium Chloride (Flush - Normal Saline 10 Ml Syringe) 10 ml IVF PRN PRN PRN Reason: Saline Flush Tramadol HCl (Tramadol Hcl 50 Mg Tab) 50 mg PO Q12H PRN PRN Reason: Moderate Pain (4-6) Last Admin: 02/16/20 20:40 Dose: 50 mg Documented by: Vital Signs & Weight: Vital Signs Temp Pulse Resp BP Pulse Ox 02/19/20 11:20 98.6 F 88 16 107/58 L 97 02/19/20 08:34 108/62 02/19/20 07:26 98.4 F 84 18 96/63 100 02/19/20 07:02 90 12 02/19/20 05:00 97.6 F 88 20 123/60 99 02/19/20 01:41 100 02/19/20 01:15 97.3 F L 80 16 111/58 L 93 L Admit Weight 164 lb 8.128 oz Weight 133 lb 4.8 oz - Physical Exam General: no apparent distress HEENT: mucus membranes moist Neck: supple neck Cardiac: regular rate and rhythm Lungs: normal breath sounds Neuro: no lateralizing findings Abdomen: active bowel sounds Extremities: 2+ LE edema Skin: clear Musculoskeletal: no pain - Labs Result Diagrams: 02/19/20 03:50 02/19/20 03:50 Troponin/CKMB CK-MB (CK-2) 3.3 ng/mL (0-6.6) 02/13/20 13:28 Troponin I 0.261 ng/mL (< 0.028) H 02/14/20 03:42 - Telemetry Sinus rhythms and dysrhythmias: sinus rhythm - Assessment/Plan Assessment/Plan: 1. Acute RV failure, improved. 2. Hypotension 3. BENJAMIN on CKD 4. UTI Sepsis 5. Hyperkalemia. PLAN: - Creatinine at baseline. - Hypercapnia is likely cause of her worsening mentation yesterday. Improved after BiPAP. - Continue current lasix dose. - Likely needs CPAP/BiPAP while sleeping.
[2020-02-19 13:28] VITALS: BMI 20.8
--- NOTE | 2020-02-19 19:31 | PRG ---
DATE OF SERVICE: 02/19/2020 SUBJECTIVE: The patient was seen and examined with no new complaints, noted with the following vital signs. OBJECTIVE: VITAL SIGNS: Temperature 98.2, pulse 95, respiratory rate of 16, O2 saturations are 95%, and blood pressure 107/58. HEENT: Unremarkable. CARDIOVASCULAR SYSTEM: First and second heart sounds were heard. RESPIRATORY SYSTEM: Clear to auscultation. DIGESTIVE SYSTEM: Revealed a benign abdomen. EXTREMITIES: Showed improved peripheral edema. LABORATORY INVESTIGATION: Showed a hemoglobin of 12.7. Chemistry showed a bicarb of 40, BUN of 63 with creatinine of 1.89. Blood gas showed a pH of 7.56 with pCO2 of 57, and bicarbonate of 50. IMPRESSION: 1. Acute kidney injury in the context of cardiorenal syndrome. 2. Severe metabolic alkalosis with some respiratory acidosis compensation. 3. Mild hypokalemia, likely in the context of severe metabolic alkalosis. PLAN: 1. Deescalate diuretics to reduce the effect of contraction alkalosis. 2. One time dose of Diamox today. 3. Hold all Lasix diuretic today and resume 20 mg of Lasix b.i.d. from tomorrow. 4. Further management to be dependent on the clinical course. Job ID: [id number]
--- NOTE | 2020-02-19 22:18 | PDOC.HOSPP ---
- Subjective Encounter Date: 02/19/20 Encounter Time: 13:00 Subjective: Patient seen and examined for multiple medical issues. Transferred from IM to telemetry last night. Still somnolent however arousable. Denies any new complaints. Feels generally weak and fatigued. - Objective Vital Signs & Weight: Vital Signs (12 hours) Temp Pulse Resp BP Pulse Ox 02/19/20 19:18 99 12 100 02/19/20 19:16 97 12 92 L 02/19/20 15:03 98.2 F 95 16 95/59 L 95 02/19/20 11:20 98.6 F 88 16 107/58 L 97 Weight Admit Weight 164 lb 8.128 oz Weight 133 lb 4.8 oz Most Recent Monitor Data Heart Rate from ECG 93 NIBP 95/67 NIBP BP-Mean 76 Respiration from ECG 22 SpO2 92 I&O: 02/18/20 02/19/20 02/20/20 06:59 06:59 06:59 Intake Total 720 1920 1300 Output Total 3850 1500 1300 Balance -3130 420 0 Result Diagrams: 02/19/20 03:50 02/19/20 03:50 Additional Labs: Accuchecks 02/19/20 02/19/20 06:22 00:13 POC Glucose 122 H 80 EKG Reviewed by me: Yes (Sinus rhythm on telemetry) Hospitalist ROS - Review of Systems Cardiovascular: denies: chest pain, palpitations, orthopnea, paroxysmal noc. dyspnea, edema, light headedness, other Gastrointestinal: denies: nausea, vomiting, abdominal pain, diarrhea, consti pation, melena, hematochezia, other - Medication Medications: Active Medications Generic Name Dose Route Start Last Admin Trade Name Freq PRN Reason Stop Dose Admin Acetaminophen 650 mg 02/13/20 15:09 02/17/20 21:46 Acetaminophen 325 Mg Tab PO 650 mg Q4H PRN Administration Headache/Fever/Mild Pain (1-3) Albuterol/Ipratropium 3 ml 02/18/20 13:00 02/19/20 19:18 Ipratropium/Albuterol Sulfate 3 Ml Neb NEB 3 ml [id number] [facility] Administration Aspirin 81 mg 02/16/20 09:00 02/19/20 08:35 Aspirin 81 Mg Enteric Coated Tablet PO 81 mg DAILY [facility] Administration Budesonide 0.5 mg 02/18/20 18:30 02/19/20 19:16 Budesonide 0.5 Mg/2 Ml Neb NEB 0.5 mg BID-RT [facility] Administration Cyanocobalamin 1,000 mcg 02/16/20 09:00 02/19/20 08:35 Cyanocobalamin (Vitamin B-12) 1,000 Mcg Tab PO 1,000 mcg DAILY [facility] Administration Docusate Sodium 100 mg 02/17/20 21:00 02/19/20 21:46 Docusate 100 Mg Cap PO 100 mg BID [facility] Administration Doxycycline Hyclate 100 mg 02/15/20 21:00 02/19/20 21:46 Doxycycline 100 Mg Cap PO 100 mg BID [facility] Administration Famotidine 20 mg 02/16/20 09:00 02/19/20 08:35 Famotidine 20 Mg Tab PO 20 mg DAILY [facility] Administration Folic Acid 1 mg 02/14/20 09:00 02/19/20 08:35 Folic Acid 1 Mg Tab PO 1 mg DAILY [facility] Administration Heparin Sodium (Porcine) 5,000 units 02/16/20 21:00 02/19/20 21:46 Heparin 5,000 Units/Ml Vial SC 5,000 units BID [facility] Administration Cefepime HCl 0.5 gm/ 100 mls @ 200 mls/hr 02/15/20 21:00 02/18/20 21:18 Miscellaneous Medication 1 IVPB 100 mls each/ Sodium Chloride 2100 [facility] Administration Insulin Human Regular 0 units 02/13/20 17:05 02/19/20 11:46 Insulin Regular 300 Units/3 Ml Vial SC 3 unit .MILD SLIDING SCALE PRN Administration Mild Correctional Scale Multivitamins 1 tab 02/16/20 09:00 02/19/20 08:36 Multivit, Therapeutic 1 Tab PO 1 tab DAILY [facility] Administration Polyethylene Glycol 17 gm 02/13/20 21:00 02/19/20 21:46 Polyethylene Glycol 3350 17 Gm Packet PO 17 gm BID [facility] Administration Senna/Docusate Sodium 2 tab 02/13/20 21:00 02/19/20 21:46 Senokot S 8.6-50 Mg Tab PO 2 tab BID [facility] Administration Sodium Chloride 10 ml 02/15/20 21:00 02/19/20 21:49 Flush - Normal Saline 10 Ml Syringe IVF 10 ml Q12HR [facility] Administration Tramadol HCl 50 mg 02/15/20 16:54 02/16/20 20:40 Tramadol Hcl 50 Mg Tab PO 50 mg Q12H PRN Administration Moderate Pain (4-6) - Exam General Appearance: NAD Neck: supple, no JVD Heart: RRR, no gallops Respiratory: rales, rhonchi Gastrointestinal: soft, non-tender, normal bowel sounds Extremities: no cyanosis Hosp A/P - Plan DVT proph w/heparin, DVT proph w/SCDs Generalized weakness/Toxic metabolic encephalopathy, multifactorial. Acute hypoxic and hypercapnic respiratory failure requiring noninvasive positive pressure ventilation Acute on chronic right-sided congestive heart failure exacerbation due to suspected pulmonary embolism. S/p heparin drip from 02/13 -02/15 Acute kidney injury on chronic kidney disease stage 2. ? Cardiorenal syndrome Metabolic acidosis Generalized anasarca Hypotension requiring pressors - prob due to Sepsis ? Septic shock - POA Sepsis due to urinary tract infection. NSVT Hyponatremia/hypokalemia/hypomagnesemia Macrocytosis. Abnormal LFTs due to passive hepatic congestion. Gastroesophageal reflux disease. Diabetes mellitus type 2. Chronic pain syndrome. Chronic insomnia. Constipation/Lactic acidosis/Type 2 myocardial infarction/hyperkalemia. - resolv ed PLAN: Continue supportive care. Continue antibiotics. One dose of acetazolamide. Reduce diuretics per nephrology due to compensatory respiratory acidosis. Continue heparin for DVT prophylaxis. Continue nebulizer treatment. Monitor electrolytes. Renal function improving.
[2020-02-19] MEDS: Cefepime 0.5 GM, Admixture Fee 1 EACH in Sodium Chloride 0.9% 100 ML IVPB SCH (23:06)
[2020-02-20 05:08] LABS: ALT (SGPT) 38 U/L (8-55); AST (SGOT) 20 U/L (5-34); Albumin 3.7 g/dL (3.4-4.8); Alkaline Phosphatase 67 U/L (40-110); BUN (Urea Nitrogen) 72 mg/dL (9.8-20.1); Bilirubin, Total 0.7 mg/dL (0.2-1.2); Calc. Creatinine Clearance 21 mL/min (70-130); Calcium 10.5 mg/dL (7.8-10.44); Estimated GFR-MDRD 22; Globulin 3.4 g/dL (2.4-3.5); Glucose 127 mg/dL (83-110); Magnesium 1.8 mg/dL (1.6-2.6); Protein, Total 7.1 g/dL (6.0-8.3)
[2020-02-20 05:11] LABS: Band 4 % (5-11); Eosinophils 1 % (0-10); Hemoglobin 12.3 g/dL (12.0-16.0); Lymphocytes 23 % (21-51); MDiff Complete? YES; Mean Corpuscular HGB CONC 31.9 g/dL (32.0-36.0); Mean Corpuscular Hemoglobin 30.8 pg (27.0-31.0); Mean Corpuscular Volume 96.7 fL (78.0-98.0); Mean Platelet Volume 8.6 fL (7.4-10.4); Monocytes 14 % (0-10); Neutrophil 58 % (42-75); Platelet Count 189 thou/uL (130-400); Platelet Morphology Comment Appears Adequate; RBC Distribution Width 14.4 % (11.5-14.5); RBC Morphology Normal; Red Blood Cell (RBC) Count 3.98 mill/uL (4.20-5.40); White Blood Cell (WBC) Count 8.4 thou/uL (4.8-10.8)
[2020-02-20 05:23] LABS: Chloride 85 mmol/L (98-107); Potassium 3.3 mmol/L (3.5-5.1); Sodium 140 mmol/L (136-145)
[2020-02-20 05:26] LABS: Anion Gap 20 mmol/L (10-20); Carbon Dioxide 38 mmol/L (23-31)
[2020-02-20] MEDS: Budesonide 0.5 MG/2 ML NEB NEB SCH ×2 (08:46→20:04)
[2020-02-20] MEDS: Doxycycline 100 MG CAP PO SCH ×2 (08:58→21:48)
[2020-02-20] MEDS: Docusate 100 MG CAP PO SCH ×2 (08:58→21:47)
[2020-02-20] MEDS: Cyanocobalamin (Vitamin B-12) 1,000 MCG TAB PO SCH (08:58)
[2020-02-20] MEDS: Aspirin 81 mg Enteric Coated Tablet PO SCH (08:58)
[2020-02-20] MEDS: Famotidine 20 MG TAB PO SCH (08:59)
[2020-02-20] MEDS: Furosemide 20 MG TAB PO SCH ×2 (08:59→14:28)
[2020-02-20] MEDS: Folic Acid 1 MG TAB PO SCH (08:59)
[2020-02-20] MEDS: Heparin 5,000 UNITS/ML VIAL SC SCH (08:59)
[2020-02-20] MEDS: Multivit, Therapeutic 1 TAB PO SCH (09:00)
[2020-02-20] MEDS ORDERED: Potassium Chloride 20 MEQ TAB PO SCH (09:00)
[2020-02-20] MEDS: Senokot S 8.6-50 MG TAB PO SCH ×2 (09:00→21:48)
[2020-02-20] MEDS: Polyethylene Glycol 3350 17 GM Packet PO SCH (09:00)
--- NOTE | 2020-02-20 14:37 | PDOC.PALPN ---
Palliative Progress Note - Subjective Seen and examined, no new complaints. Remains weak, sleepy. Ready to transition back to facility - Objective Vital Signs: Vital Signs - Most Recent Temp Pulse Resp BP Pulse Ox 98.4 F 91 16 99/54 L 98 02/20/20 11:29 02/20/20 13:48 02/20/20 13:48 02/20/20 11:29 02/20/20 13:48 - Physical Exam Constitutional: cachectic, ill appearing HEENT: EOMI, moist MMs, sclera anicteric Respiratory: no wheezing, unlabored breathing Cardiovascular: RRR, diminished peripheral pulses Gastrointestinal: soft, non-tender, positive bowel sounds Genitourinary: vanessa catheter Musculoskeletal: no edema, diffuse muscle atrophy - Assessment (1) Respiratory failure Code(s): J96.90 - RESPIRATORY FAILURE, UNSP, UNSP W HYPOXIA OR HYPERCAPNIA Status: Acute (2) Kidney disease, chronic, stage II (GFR 60-89 ml/min) Code(s): N18.2 - CHRONIC KIDNEY DISEASE, STAGE 2 (MILD) Status: Acute (3) Palliative care encounter Code(s): Z51.5 - ENCOUNTER FOR PALLIATIVE CARE Status: Acute (4) Right-sided heart failure Status: Acute - Plan Plan: Desires to transition to facility and seek care through hospice. Conversation again in relation to Mrs Watson desire to not seek any treatment or aggressive measures. She is wanting to not return to the hospital setting, but have her symptoms managed and remain at the faciliyt where she is a detention resident. Emotional support and therapeutic listening. [50] minutes spent on this encounter with >50% of the time in counseling and coordination of care. - ROS Constitutional: alert, loss appetite, weakness ENT: other (Negative for throat irritation, congestion) Respiratory: shortness of breath, shortness of breath with extertion Cardiology: other (Negative for chest pain, discomfort) Gastrointestinal: other (Deneis nausea, diarrhea)
[2020-02-20] MEDS: traMADol HCl 50 MG TAB PO PRN (17:37)
--- NOTE | 2020-02-20 18:45 | PRG ---
DATE OF SERVICE: 02/20/2020 SUBJECTIVE: The patient is seen, noted with the following vital signs. OBJECTIVE: VITAL SIGNS: Afebrile, temperature 98.1, pulse 91, respiratory rate of 16, O2 saturations of 98%, blood pressure 111/55. HEENT: Unremarkable. CARDIOVASCULAR SYSTEM: First and second heart sounds were heard. RESPIRATORY SYSTEM: Clear to auscultation. DIGESTIVE SYSTEM: Revealed a benign abdomen with positive bowel sounds. EXTREMITIES: No peripheral edema. SKIN: No new gross rash. LYMPHATICS: No peripheral lymphadenopathy. LABORATORY INVESTIGATION: Showed potassium of 3.3, bicarb of 38, creatinine 2.13 with BUN of 72. IMPRESSION: 1. Contraction metabolic alkalosis, improving. 2. Hypokalemia. 3. Sejet-yp-[id number] kidney disease. 4. Cardiorenal syndrome. PLAN: 1. We will continue with the escalated dose of Lasix. 2. Replete potassium. 3. Further management to be dependent on the clinical course. Job ID: [id number]
[2020-02-20] MEDS: Apixaban 2.5 MG TAB PO SCH (21:48)
[2020-02-20] MEDS: Cefepime 0.5 GM, Admixture Fee 1 EACH in Sodium Chloride 0.9% 100 ML IVPB SCH (21:55)
--- NOTE | 2020-02-20 23:20 | PDOC.HOSPP ---
- Subjective Encounter Date: 02/20/20 Encounter Time: 16:00 Subjective: Patient seen and examined for right-sided heart failure with sepsis due to UTI. Denies any chest pain or shortness of breath at rest. No chest pain. - Objective Vital Signs & Weight: Vital Signs (12 hours) Temp Pulse Pulse Pulse Resp BP BP 02/20/20 20:05 02/20/20 20:04 02/20/20 20:03 02/20/20 16:00 98.1 F 125 H 18 02/20/20 14:15 92 93 111/55 L 99/56 L 02/20/20 13:48 91 16 02/20/20 11:29 98.4 F 91 18 BP Pulse Ox Pulse Ox Pulse Ox 02/20/20 20:05 98 02/20/20 20:04 98 02/20/20 20:03 98 02/20/20 16:00 101/59 L 96 02/20/20 14:15 97 96 02/20/20 13:48 98 02/20/20 11:29 99/54 L 97 Weight Admit Weight 164 lb 8.128 oz Weight 133 lb 8 oz Most Recent Monitor Data Heart Rate from ECG 93 NIBP 95/67 NIBP BP-Mean 76 Respiration from ECG 22 SpO2 92 I&O: 02/19/20 02/20/20 02/21/20 06:59 06:59 06:59 Intake Total 1920 1540 800 Output Total 1500 1750 750 Balance 420 -210 50 Result Diagrams: 02/20/20 04:11 02/20/20 04:11 Additional Labs: Accuchecks 02/20/20 02/20/20 02/20/20 05:20 01:37 00:17 POC Glucose 113 H 120 H 142 H EKG Reviewed by me: Yes (Sinus rhythm on telemetry) Hospitalist ROS - Review of Systems Respiratory: denies: cough, dry, shortness of breath, hemoptysis, SOB with excertion, pleuritic pain, sputum, wheezing, other Cardiovascular: denies: chest pain, palpitations, orthopnea, paroxysmal noc. dyspnea, edema, light headedness, other - Medication Medications: Active Medications Generic Name Dose Route Start Last Admin Trade Name Freq PRN Reason Stop Dose Admin Acetaminophen 650 mg 02/13/20 15:09 02/17/20 21:46 Acetaminophen 325 Mg Tab PO 650 mg Q4H PRN Administration Headache/Fever/Mild Pain (1-3) Albuterol/Ipratropium 3 ml 02/18/20 13:00 02/20/20 20:03 Ipratropium/Albuterol Sulfate 3 Ml Neb NEB 3 ml [id number] ALEX Administration Apixaban 2.5 mg 02/20/20 21:00 02/20/20 21:48 Apixaban 2.5 Mg Tab PO 2.5 mg BID ALEX Administration Budesonide 0.5 mg 02/18/20 18:30 02/20/20 20:04 Budesonide 0.5 Mg/2 Ml Neb NEB 0.5 mg BID-RT [facility]LEX Administration Cyanocobalamin 1,000 mcg 02/16/20 09:00 02/20/20 08:58 Cyanocobalamin (Vitamin B-12) 1,000 Mcg Tab PO 1,000 mcg DAILY [facility] Administration Docusate Sodium 100 mg 02/17/20 21:00 02/20/20 21:47 Docusate 100 Mg Cap PO 100 mg BID ALEX Administration Doxycycline Hyclate 100 mg 02/15/20 21:00 02/20/20 21:48 Doxycycline 100 Mg Cap PO 100 mg BID ALEX Administration Famotidine 20 mg 02/16/20 09:00 02/20/20 08:59 Famotidine 20 Mg Tab PO 20 mg DAILY [facility]LEX Administration Folic Acid 1 mg 02/14/20 09:00 02/20/20 08:59 Folic Acid 1 Mg Tab PO 1 mg DAILY [facility] Administration Furosemide 20 mg 02/20/20 09:00 02/20/20 14:28 Furosemide 20 Mg Tab PO 20 mg 0900,1400 ALEX Administration Cefepime HCl 0.5 gm/ 100 mls @ 200 mls/hr 02/15/20 21:00 02/20/20 21:55 Miscellaneous Medication 1 IVPB 100 mls each/ Sodium Chloride 2100 ALEX Administration Insulin Human Regular 0 units 02/13/20 17:05 02/19/20 11:46 Insulin Regular 300 Units/3 Ml Vial SC 3 unit .MILD SLIDING SCALE PRN Administration Mild Correctional Scale Multivitamins 1 tab 02/16/20 09:00 02/20/20 09:00 Multivit, Therapeutic 1 Tab PO 1 tab DAILY [facility] Administration Polyethylene Glycol 17 gm 02/20/20 09:00 02/20/20 09:00 Polyethylene Glycol 3350 17 Gm Packet PO 17 gm DAILY [facility] Administration Senna/Docusate Sodium 1 tab 02/20/20 21:00 02/20/20 21:48 Senokot S 8.6-50 Mg Tab PO 1 tab BID [facility] Administration Sodium Chloride 10 ml 02/15/20 21:00 02/20/20 21:49 Flush - Normal Saline 10 Ml Syringe IVF 10 ml Q12HR [facility] Administration Tramadol HCl 50 mg 02/15/20 16:54 02/20/20 17:37 Tramadol Hcl 50 Mg Tab PO 50 mg Q12H PRN Administration Moderate Pain (4-6) - Exam General Appearance: ill appearing Neck: supple, no JVD Heart: no gallops, no rubs Respiratory: no wheezes, no rales Gastrointestinal: soft, non-tender, normal bowel sounds Extremities: no cyanosis, no clubbing Neurological: no new deficit Psychiatric: normal affect, A&O x 3 Hosp A/P - Plan DVT proph w/heparin Generalized weakness/Toxic metabolic encephalopathy, multifactorial. Acute hypoxic and hypercapnic respiratory failure requiring noninvasive positive pressure ventilation Acute on chronic right-sided congestive heart failure exacerbation due to lea spected pulmonary embolism. S/p heparin drip from 02/13 -02/15 Acute kidney injury on chronic kidney disease stage 2. ? Cardiorenal syndrome Metabolic acidosis Generalized anasarca Hypotension requiring pressors - prob due to Sepsis ? Septic shock - POA Sepsis due to urinary tract infection. NSVT Hyponatremia/hypokalemia/hypomagnesemia Macrocytosis. Abnormal LFTs due to passive hepatic congestion. Gastroesophageal reflux disease. Diabetes mellitus type 2. Chronic pain syndrome. Chronic insomnia. Constipation/Lactic acidosis/Type 2 myocardial infarction/hyperkalemia. - resolved PLAN: Had an extensive discussion with cardiology Dr. Patel and nephrology Dr. Huang. Cardiology and nephrology recommended low-dose anticoagulation for right-sided heart failure/suspected venous thromboembolism. I then had an extensive discussion with patient's daughter over the phone. Risk and benefit of Eliquis discussed with the daughter She understands the risk not limited to life- threatening bleeding with anticoagulation. Will discontinue aspirin and start Eliquis 2.5 mg bid. Continue antibiotics for UTI. Please note that the urine cultures were obtained after the antibiotics which have been negative. Will replace potassium. Reduce stool softeners. Recheck labs in a.m. [facility] with [facility] when cleared by consultants continue other medications as above
[2020-02-21 04:27] LABS: #Basophils 0.1 thou/uL (0.0-0.2); #Eosinphils 0.2 thou/uL (0.0-0.7); #Lymphocytes 1.4 thou/uL (1.20-3.40); #Monocytes 1.1 thou/uL (0.11-0.59); #Neutrophils 5.1 thou/uL (1.40-6.50); %Eosinophils 2.6 % (0.0-10.0); %Lymphocytes 18.3 % (21.0-51.0); %Monocytes 13.5 % (0.0-10.0); %Neutrophils 64.7 % (42.0-75.0); Hemoglobin 12.4 g/dL (12.0-16.0); Mean Corpuscular HGB CONC 32.3 g/dL (32.0-36.0); Mean Platelet Volume 8.5 fL (7.4-10.4); Platelet Count 187 thou/uL (130-400); RBC Distribution Width 14.3 % (11.5-14.5); Red Blood Cell (RBC) Count 3.99 mill/uL (4.20-5.40); White Blood Cell (WBC) Count 7.9 thou/uL (4.8-10.8)
[2020-02-21 04:50] LABS: ALT (SGPT) 34 U/L (8-55); AST (SGOT) 21 U/L (5-34); Albumin 3.9 g/dL (3.4-4.8); Alkaline Phosphatase 67 U/L (40-110); BUN (Urea Nitrogen) 77 mg/dL (9.8-20.1); Bilirubin, Total 0.7 mg/dL (0.2-1.2); Calc. Creatinine Clearance 21 mL/min (70-130); Calcium 10.2 mg/dL (7.8-10.44); Estimated GFR-MDRD 23; Globulin 3.5 g/dL (2.4-3.5); Glucose 127 mg/dL (83-110); Protein, Total 7.4 g/dL (6.0-8.3)
[2020-02-21 04:59] LABS: Anion Gap 22 mmol/L (10-20); Carbon Dioxide 37 mmol/L (23-31); Chloride 84 mmol/L (98-107); Potassium 4.1 mmol/L (3.5-5.1); Sodium 139 mmol/L (136-145)
[2020-02-21] MEDS: Budesonide 0.5 MG/2 ML NEB NEB SCH ×2 (07:50→18:44)
[2020-02-21] MEDS: Famotidine 20 MG TAB PO SCH (08:22)
[2020-02-21] MEDS: Doxycycline 100 MG CAP PO SCH ×2 (08:22→20:25)
[2020-02-21] MEDS: Multivit, Therapeutic 1 TAB PO SCH (08:22)
[2020-02-21] MEDS: Folic Acid 1 MG TAB PO SCH (08:22)
[2020-02-21] MEDS: Cyanocobalamin (Vitamin B-12) 1,000 MCG TAB PO SCH (08:22)
[2020-02-21] MEDS: Docusate 100 MG CAP PO SCH ×2 (08:22→20:25)
[2020-02-21] MEDS: Apixaban 2.5 MG TAB PO SCH ×2 (08:22→20:25)
[2020-02-21] MEDS: Furosemide 20 MG TAB PO SCH (08:22)
[2020-02-21] MEDS: Polyethylene Glycol 3350 17 GM Packet PO SCH (08:23)
[2020-02-21] MEDS: Senokot S 8.6-50 MG TAB PO SCH ×2 (08:23→20:25)
[2020-02-21] MEDS: traMADol HCl 50 MG TAB PO PRN (08:23)
[2020-02-21] MEDS: Acetaminophen 325 MG TAB PO PRN (12:37)
[2020-02-21] MEDS: Cefepime 0.5 GM, Admixture Fee 1 EACH in Sodium Chloride 0.9% 100 ML IVPB SCH (21:49)
[2020-02-22 00:41] LABS: Lactic Acid 0.8 mmol/L (0.5-2.2)
[2020-02-22 00:52] LABS: Anion Gap 20 mmol/L (10-20); Carbon Dioxide 34 mmol/L (23-31); Chloride 87 mmol/L (98-107); Sodium 137 mmol/L (136-145)
[2020-02-22] MEDS: Acetaminophen 325 MG TAB PO PRN (01:08)
[2020-02-22 05:12] LABS: ALT (SGPT) 25 U/L (8-55); AST (SGOT) 21 U/L (5-34); Albumin 3.7 g/dL (3.4-4.8); Alkaline Phosphatase 61 U/L (40-110); BUN (Urea Nitrogen) 90 mg/dL (9.8-20.1); Bilirubin, Total 0.6 mg/dL (0.2-1.2); Calc. Creatinine Clearance 24 mL/min (70-130); Calcium 9.6 mg/dL (7.8-10.44); Estimated GFR-MDRD 25; Globulin 3.3 g/dL (2.4-3.5); Glucose 120 mg/dL (83-110)
[2020-02-22 05:21] LABS: Anion Gap 18 mmol/L (10-20); Carbon Dioxide 37 mmol/L (23-31); Chloride 87 mmol/L (98-107); Potassium 3.9 mmol/L (3.5-5.1); Sodium 138 mmol/L (136-145)
[2020-02-22] MEDS: Budesonide 0.5 MG/2 ML NEB NEB SCH (07:32)
[2020-02-22] MEDS ORDERED: Furosemide 20 MG TAB PO SCH (09:00)
[2020-02-22] MEDS: Multivit, Therapeutic 1 TAB PO SCH (09:14)
[2020-02-22] MEDS: Senokot S 8.6-50 MG TAB PO SCH (09:14)
[2020-02-22] MEDS: Doxycycline 100 MG CAP PO SCH (09:14)
[2020-02-22] MEDS: Folic Acid 1 MG TAB PO SCH (09:14)
[2020-02-22] MEDS: Cyanocobalamin (Vitamin B-12) 1,000 MCG TAB PO SCH (09:14)
[2020-02-22] MEDS: Famotidine 20 MG TAB PO SCH (09:14)
[2020-02-22] MEDS: Apixaban 2.5 MG TAB PO SCH (09:15)
[2020-02-22] MEDS: Polyethylene Glycol 3350 17 GM Packet PO SCH (09:15)
[2020-02-22] MEDS: Docusate 100 MG CAP PO SCH (09:15)
--- NOTE | 2020-02-22 11:13 | PDOC.NEPPN ---
- Subjective Encounter Date: 02/22/20 Subjective: Seen in follow up for BENJAMIN due to cardiorenal syndrome. Feeling better but still requiring oxygen.Appetite is good. - Objective Vital Signs & Weight: Vital Signs (12 hours) Temp Pulse Resp BP Pulse Ox 02/22/20 07:55 98.9 F 96 16 102/54 L 96 02/22/20 07:32 92 18 02/22/20 04:00 91 16 97/56 L 95 Weight Admit Weight 164 lb 8.128 oz Weight 135 lb 3.2 oz Most Recent Monitor Data Heart Rate from ECG 93 NIBP 95/67 NIBP BP-Mean 76 Respiration from ECG 22 SpO2 92 I&O: 02/21/20 02/22/20 02/23/20 07:59 06:59 06:59 Intake Total Output Total Balance Result Diagrams: 02/21/20 04:09 02/22/20 04:25 Additional Labs: Accuchecks 02/22/20 02/21/20 02/21/20 03:47 17:37 12:34 POC Glucose 132 H 108 H 132 H 02/20/20 02/19/20 02/19/20 12:40 17:55 10:43 POC Glucose 135 H 121 H 242 H Nephrology ROS - Medication Medications: Active Medications Generic Name Dose Route Start Last Admin Trade Name Freq PRN Reason Stop Dose Admin Acetaminophen 650 mg 02/13/20 15:09 02/22/20 01: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 Acetaminophen 325 Mg Tab PO 650 mg Q4H PRN Administration Headache/Fever/Mild Pain (1-3) Albuterol/Ipratropium 3 ml 02/18/20 13:00 02/22/20 07:32 Ipratropium/Albuterol Sulfate 3 Ml Neb NEB 3 ml [id number] ALEX Administration Apixaban 2.5 mg 02/20/20 21:00 02/22/20 09:15 Apixaban 2.5 Mg Tab PO 2.5 mg BID ALEX Administration Budesonide 0.5 mg 02/18/20 18:30 02/22/20 07:32 Budesonide 0.5 Mg/2 Ml Neb NEB 0.5 mg BID-RT ALEX Administration Cyanocobalamin 1,000 mcg 02/16/20 09:00 02/22/20 09:14 Cyanocobalamin (Vitamin B-12) 1,000 Mcg Tab PO 1,000 mcg DAILY ALEX Administration Docusate Sodium 100 mg 02/17/20 21:00 02/22/20 09:15 Docusate 100 Mg Cap PO 100 mg BID ALEX Administration Doxycycline Hyclate 100 mg 02/15/20 21:00 02/22/20 09:14 Doxycycline 100 Mg Cap PO 100 mg BID ALEX Administration Famotidine 20 mg 02/16/20 09:00 02/22/20 09:14 Famotidine 20 Mg Tab PO 20 mg DAILY ALEX Administration Folic Acid 1 mg 02/14/20 09:00 02/22/20 09:14 Folic Acid 1 Mg Tab PO 1 mg DAILY ALXE Administration Cefepime HCl 0.5 gm/ 100 mls @ 200 mls/hr 02/15/20 21:00 02/21/20 21:49 Miscellaneous Medication 1 IVPB 100 mls each/ Sodium Chloride 2100 ALEX Administration Insulin Human Regular 0 units 02/13/20 17:05 02/19/20 11:46 Insulin Regular 300 Units/3 Ml Vial SC 3 unit .MILD SLIDING SCALE PRN Administration Mild Correctional Scale Multivitamins 1 tab 02/16/20 09:00 02/22/20 09:14 Multivit, Therapeutic 1 Tab PO 1 tab DAILY ALEX Administration Polyethylene Glycol 17 gm 02/20/20 09:00 02/22/20 09:15 Polyethylene Glycol 3350 17 Gm Packet PO 17 gm DAILY ALEX Administration Senna/Docusate Sodium 1 tab 02/20/20 21:00 02/22/20 09:14 Senokot S 8.6-50 Mg Tab PO 1 tab BID ALEX Administration Sodium Chloride 10 ml 02/15/20 21:00 02/22/20 09:15 Flush - Normal Saline 10 Ml Syringe IVF 10 ml Q12HR ALEX Administration Tramadol HCl 50 mg 02/15/20 16:54 02/21/20 08:23 Tramadol Hcl 50 Mg Tab PO 50 mg Q12H PRN Administration Moderate Pain (4-6) - Exam General Appearance: awake alert General - other findings: chronically ill looking Eye: anicteric sclera ENT: normocephalic atraumatic Respiratory: no wheezes, no ronchi, normal chest expansion, no tachypnea Cardiovascular: RRR Gastrointestinal: soft, non-tender, non-distended, normal bowel sounds Extremities - other findings: trace edema of right leg Neurological: CN's grossly intact Neurological - other findings: Awake and oriented Nephrology Results - Labs Result Diagrams: 02/21/20 04:09 02/22/20 04:25 Lab results: WBC 7.9 thou/uL (4.8-10.8) 02/21/20 04:09 Hgb 12.4 g/dL (12.0-16.0) 02/21/20 04:09 Hct 38.3 % (36.0-47.0) 02/21/20 04:09 MCV 96.0 fL (78.0-98.0) 02/21/20 04:09 Plt Count 187 thou/uL (130-400) 02/21/20 04:09 Neutrophils % 64.7 % (42.0-75.0) 02/21/20 04:09 Band Neuts % (Manual) 4 % (5-11) L 02/20/20 04:11 ABG pH 7.56 (7.35-7.45) H* 02/19/20 00:02 ABG pCO2 57.4 mmHg (35.0-45.0) H 02/19/20 00:02 ABG pO2 48.5 mmHg (> 70.0) L* 02/19/20 00:02 Sodium 138 mmol/L (136-145) 02/22/20 04:25 Potassium 3.9 mmol/L (3.5-5.1) 02/22/20 04:25 Chloride 87 mmol/L (98-107) L 02/22/20 04:25 Carbon Dioxide 37 mmol/L (23-31) H 02/22/20 04:25 BUN 90 mg/dL (9.8-20.1) H 02/22/20 04:25 Creatinine 1.95 mg/dL (0.6-1.1) H 02/22/20 04:25 Glucose 120 mg/dL (83-110) H 02/22/20 04:25 Lactic Acid 0.8 mmol/L (0.5-2.2) 02/22/20 00:16 Calcium 9.6 mg/dL (7.8-10.44) 02/22/20 04:25 Total Bilirubin 0.6 mg/dL (0.2-1.2) 02/22/20 04:25 AST 21 U/L (5-34) 02/22/20 04:25 ALT 25 U/L (8-55) 02/22/20 04:25 Alkaline Phosphatase 61 U/L (40-110) 02/22/20 04:25 CK-MB (CK-2) 3.3 ng/mL (0-6.6) 02/13/20 13:28 Troponin I 0.261 ng/mL (< 0.028) H 02/14/20 03:42 B-Natriuretic Peptide 2604.7 pg/mL (0-100) H 02/13/20 09:54 Serum Total Protein 7.0 g/dL (6.0-8.3) 02/22/20 04:25 Albumin 3.7 g/dL (3.4-4.8) 02/22/20 04:25 Urine Ketones Negative mg/dL (Negative) 02/13/20 10:24 Urine Blood 3+ (Negative) A 02/13/20 10:24 Urine Nitrite Negative (Negative) 02/13/20 10:24 Ur Leukocyte Esterase 500 Melanie/uL (Negative) A 02/13/20 10:24 Urine RBC 21-50 HPF (0-3) A 02/13/20 10:24 Urine WBC Greater than 50 HPF (0-3) A 02/13/20 10:24 Ur Squamous Epith Cells 0-3 HPF (0-3) 02/13/20 10:24 Urine Bacteria 4+ HPF (None Seen) A 02/13/20 10:24 Sodium 138 mmol/L (136-145) 02/22/20 04:25 Potassium 3.9 mmol/L (3.5-5.1) 02/22/20 04:25 Chloride 87 mmol/L (98-107) L 02/22/20 04:25 Carbon Dioxide 37 mmol/L (23-31) H 02/22/20 04:25 Anion Gap 18 mmol/L (10-20) 02/22/20 04:25 BUN 90 mg/dL (9.8-20.1) H 02/22/20 04:25 Creatinine 1.95 mg/dL (0.6-1.1) H 02/22/20 04:25 Glucose 120 mg/dL (83-110) H 02/22/20 04:25 Calcium 9.6 mg/dL (7.8-10.44) 02/22/20 04:25 Phosphorus 2.4 mg/dL (2.3-4.7) 02/18/20 04:04 Magnesium 2.0 mg/dL (1.6-2.6) 02/22/20 00:16 Albumin 3.7 g/dL (3.4-4.8) 02/22/20 04:25 Nephrology AP PN - Plan BENJAMIN: Due to hemodynamical factors related to circulatory shock and cardiorenal syndrome. CKD stage 3 Hyperkalemia: Resolved. Hypokalemia: Resolved Acidosis: metabolic and respiratory. Improved. Alkalosis: Most likely related to intravascular contraction with possible contribution from metabolic compensation of respiratory acidosis. Acute on chronic right heart failure. Anasarca: Due to cardiac decompensation. Improved with diuretics. Circulatory shock/Hypotension: Due to cardiac decompensation and sepsis. has BENJAMIN and abnormal LFT. Resolved. off pressor. Acute respiratory failure with hypercarbia. Improved. Sepsis: 2/2 right lower extremity cellulitis and Urinary tract infection Presumed urinary tract infection. Diabetes mellitus. Pulmonary HTN. Presumed PE Protein calorie malnutrition Plan Hold diuretic due to worsening BUN and alkalosis. Monitor renal function and electrolytes. Other treatments as per cardiology and primary attending.
--- NOTE | 2020-02-22 13:12 | PDOC.HOSPP ---
- Subjective Encounter Date: 02/22/20 Subjective: No new complaints today. - Objective Vital Signs & Weight: Vital Signs (12 hours) Temp Pulse Resp BP Pulse Ox 02/22/20 11:20 99.0 F 94 16 111/61 96 02/22/20 07:55 98.9 F 96 16 102/54 L 96 02/22/20 07:32 92 18 02/22/20 04:00 91 16 97/56 L 95 Weight Admit Weight 164 lb 8.128 oz Weight 135 lb 3.2 oz Most Recent Monitor Data Heart Rate from ECG 93 NIBP 95/67 NIBP BP-Mean 76 Respiration from ECG 22 SpO2 92 I&O: 02/21/20 02/22/20 02/23/20 07:59 06:59 06:59 Intake Total Output Total Balance Result Diagrams: 02/21/20 04:09 02/22/20 04:25 Additional Labs: Accuchecks 02/22/20 02/21/20 02/20/20 03:47 17:37 12:40 POC Glucose 132 H 108 H 135 H 02/19/20 02/19/20 17:55 10:43 POC Glucose 121 H 242 H Hospitalist ROS - Medication Medications: Active Medications Generic Name Dose Route Start Last Admin Trade Name Freq PRN Reason Stop Dose Admin Acetaminophen 650 mg 02/13/20 15:09 02/22/20 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 Acetaminophen 325 Mg Tab PO 650 mg Q4H PRN Administration Headache/Fever/Mild Pain (1-3) Albuterol/Ipratropium 3 ml 02/18/20 13:00 02/22/20 07:32 Ipratropium/Albuterol Sulfate 3 Ml Neb NEB 3 ml [id number] ALEX Administration Apixaban 2.5 mg 02/20/20 21:00 02/22/20 09:15 Apixaban 2.5 Mg Tab PO 2.5 mg BID ALEX Administration Budesonide 0.5 mg 02/18/20 18:30 02/22/20 07:32 Budesonide 0.5 Mg/2 Ml Neb NEB 0.5 mg BID-RT ALEX Administration Cyanocobalamin 1,000 mcg 02/16/20 09:00 02/22/20 09:14 Cyanocobalamin (Vitamin B-12) 1,000 Mcg Tab PO 1,000 mcg DAILY ALEX Administration Docusate Sodium 100 mg 10/27/20 21:00 02/22/20 09:15 Docusate 100 Mg Cap PO 100 mg BID ALEX Administration Doxycycline Hyclate 100 mg 02/15/20 21:00 02/22/20 09:14 Doxycycline 100 Mg Cap PO 100 mg BID ALEX Administration Famotidine 20 mg 02/16/20 09:00 02/22/20 09:14 Famotidine 20 Mg Tab PO 20 mg DAILY ALEX Administration Folic Acid 1 mg 02/14/20 09:00 02/22/20 09:14 Folic Acid 1 Mg Tab PO 1 mg DAILY ALEX Administration Cefepime HCl 0.5 gm/ 100 mls @ 200 mls/hr 02/15/20 21:00 02/21/20 21:49 Miscellaneous Medication 1 IVPB 100 mls each/ Sodium Chloride 2100 ALEX Administration Insulin Human Regular 0 units 02/13/20 17:05 02/19/20 11:46 Insulin Regular 300 Units/3 Ml Vial SC 3 unit .MILD SLIDING SCALE PRN Administration Mild Correctional Scale Multivitamins 1 tab 02/16/20 09:00 02/22/20 09:14 Multivit, Therapeutic 1 Tab PO 1 tab DAILY ALEX Administration Polyethylene Glycol 17 gm 02/20/20 09:00 02/22/20 09:15 Polyethylene Glycol 3350 17 Gm Packet PO 17 gm DAILY ALEX Administration Senna/Docusate Sodium 1 tab 02/20/20 21:00 02/22/20 09:14 Senokot S 8.6-50 Mg Tab PO 1 tab BID ALEX Administration Sodium Chloride 10 ml 02/15/20 21:00 02/22/20 09:15 Flush - Normal Saline 10 Ml Syringe IVF 10 ml Q12HR ALEX Administration Tramadol HCl 50 mg 02/15/20 16:54 02/21/20 08:23 Tramadol Hcl 50 Mg Tab PO 50 mg Q12H PRN Administration Moderate Pain (4-6) - Exam General Appearance: awake alert Neck: supple, no JVD Respiratory: normal chest expansion, no tachypnea Extremities: no cyanosis, no clubbing Neurological: cranial nerve grossly intact Hosp A/P - Plan Generalized weakness/Toxic metabolic encephalopathy, multifactorial. Acute hypoxic and hypercapnic respiratory failure requiring noninvasive positive pressure ventilation Acute on chronic right-sided congestive heart failure exacerbation due to suspected pulmonary embolism. S/p heparin drip from 02/13 -02/15 Acute kidney injury on chronic kidney disease stage 2. ? Cardiorenal syndrome Metabolic acidosis Generalized anasarca Hypotension requiring pressors - prob due to Sepsis ? Septic shock - POA Sepsis due to urinary tract infection. NSVT Hyponatremia/hypokalemia/hypomagnesemia Macrocytosis. Abnormal LFTs due to passive hepatic congestion. Gastroesophageal reflux disease. Diabetes mellitus type 2. Chronic pain syndrome. Chronic insomnia. Constipation/Lactic acidosis/Type 2 myocardial infarction/hyperkalemia. - resolved PLAN: The patient is clinically stable today. She will be discharged to SNF with hospice. I have updated her daughter this morning.
[2020-02-22 16:25] VITALS: BP 96/55; TEMP 99.1
--- NOTE | 2020-02-23 10:05 | DIS ---
DATE OF ADMISSION: 02/13/2020 DATE OF DISCHARGE: 02/22/2020 DISCHARGE DIAGNOSES: 1. Acute metabolic encephalopathy. 2. Acute respiratory failure with hypoxia and hypercarbia. 3. Acute on chronic heart failure. 4. Pulmonary embolism. 5. Acute on chronic kidney disease. 6. Fluid overload. 7. Hypotension. 8. Sepsis. 9. Urinary tract infection. 10. Supraventricular tachycardia. 11. Hyponatremia. 12. Hypokalemia. 13. Hypomagnesemia. 14. Type 2 diabetes mellitus. DISCHARGE MEDICATIONS: The patient will continue her home medications with the addition of Eliquis 2.5 mg orally twice daily. HISTORY OF PRESENT ILLNESS AND HOSPITAL COURSE: The patient is a 79-year-old female with past medical history of diabetes mellitus, hypertension, lymphedema, and congestive heart failure, who presented to the hospital with altered mental status. The patient was found to be hypotensive with hyperkalemia and acute kidney injury. Her BNP was also elevated. X-ray showed no evidence of pulmonary edema, likely due to exacerbation of CHF, compounded by the acute kidney injury. The patient was managed with IV diuresis. Initially, she required positive-pressure ventilation, which was subsequently weaned off. She was also started on IV antibiotics for suspected sepsis related to UTI. The patient required vasopressors temporarily during her hospital stay. Her hospitalization was also complicated by possible pulmonary embolus. CTA was not performed due to renal function and the V/Q scan was intermediate probability. The patient was started on Eliquis. The patient had a discussion with the Palliative Care team, the family decided to pursue hospice care. This will be arranged for her discharge to SNF. Job ID: [id number]
--- NOTE | 2020-02-25 19:30 | EKG ---
Test Reason : STAT Blood Pressure : / mmHG Vent. Rate : 091 BPM Atrial Rate : 091 BPM P-R Int : 130 ms QRS Dur : 080 ms QT Int : 350 ms P-R-T Axes : 033 043 048 degrees QTc Int : 430 ms Normal sinus rhythm Low voltage QRS Cannot rule out Anteroseptal infarct (cited on or before 13-FEB-2020) Abnormal ECG When compared with ECG of 13-FEB-2020 09:41, (Unconfirmed) Fusion complexes are no longer Present Premature ventricular complexes are no longer Present Criteria for Inferior infarct are no longer Present Confirmed by ARNOLD JONES, DR. Briggs ([id number]) on 02/25/2020 7:30:31 PM Referred By: Confirmed By:DR. Chester BARRETT MD
--- NOTE | 2020-02-28 15:28 | EKG ---
Test Reason : Blood Pressure : / mmHG Vent. Rate : 104 BPM Atrial Rate : 104 BPM P-R Int : 166 ms QRS Dur : 078 ms QT Int : 352 ms P-R-T Axes : 010 137 029 degrees QTc Int : 462 ms Sinus tachycardia with occasional , and consecutive Premature ventricular complexes and Fusion comple xes Low voltage QRS Left posterior fascicular block Inferior infarct , age undetermined Cannot rule out Anteroseptal infarct , age undetermined Abnormal ECG Confirmed by BO SORENSEN ([id number]), magazine editor PRISCILLA SHAFER ([id number]) on 02/28/2020 3:28:21 PM Referred By: Confirmed By:BO Smith
== END 2020-02-22 18:51 | disposition hospice, inpatient (51) | DRG 871 ==
LOC: ERS 09:01 → ERHOLD 12:04 → CCU 02-14 07:36 → IMCU/EMU 02-15 12:22 → 2NO 02-16 16:35 → IMCU/EMU 02-18 22:08 → 2NO 02-19 01:40
PROVIDERS: ADMIT Internal Medicine; ATTEND Internal Medicine
PROC: 3E033XZ Introduction of Vasopressor into Peripheral Vein, Percutaneous Approach (ICD-10-PCS; principal; 2020-02-13)
PROC: 02HV33Z Insertion of Infusion Device into Superior Vena Cava, Percutaneous Approach (ICD-10-PCS; 2020-02-13)
PROC: 5A09457 Assistance with Respiratory Ventilation, 24-96 Consecutive Hours, Continuous Positive Airway Pressure (ICD-10-PCS; 2020-02-14)
DX: A41.9 Sepsis, unspecified organism (principal); G92 Toxic encephalopathy; J96.01 Acute respiratory failure with hypoxia; J96.02 Acute respiratory failure with hypercapnia; I26.99 Other pulmonary embolism without acute cor pulmonale; I50.33 Acute on chronic diastolic (congestive) heart failure; I21.A1 Myocardial infarction type 2; R65.21 Severe sepsis with septic shock; N17.9 Acute kidney failure, unspecified; N39.0 Urinary tract infection, site not specified; I47.1 Supraventricular tachycardia; E87.1 Hypo-osmolality and hyponatremia; I13.0 Hypertensive heart and chronic kidney disease with heart failure and stage 1 through stage 4 chronic kidney disease, or unspecified chronic kidney disease; E87.2 Acidosis; L03.115 Cellulitis of right lower limb; E87.3 Alkalosis; E46 Unspecified protein-calorie malnutrition; R64 Cachexia; Z20.828 Contact with and (suspected) exposure to other viral communicable diseases; Z66 Do not resuscitate; Z51.5 Encounter for palliative care; E83.42 Hypomagnesemia; E11.22 Type 2 diabetes mellitus with diabetic chronic kidney disease; E87.5 Hyperkalemia; J30.9 Allergic rhinitis, unspecified; K21.9 Gastro-esophageal reflux disease without esophagitis; M19.90 Unspecified osteoarthritis, unspecified site; F41.9 Anxiety disorder, unspecified; G89.4 Chronic pain syndrome; F51.04 Psychophysiologic insomnia; K59.00 Constipation, unspecified; N18.30 Chronic kidney disease, stage 3 unspecified; K74.60 Unspecified cirrhosis of liver; I27.20 Pulmonary hypertension, unspecified; E87.6 Hypokalemia; Z88.5 Allergy status to narcotic agent; Z79.82 Long term (current) use of aspirin; Z79.84 Long term (current) use of oral hypoglycemic drugs; Z79.899 Other long term (current) drug therapy; Z99.3 Dependence on wheelchair; Z68.21 Body mass index [BMI] 21.0-21.9, adult
CPT/HCPCS: 36415; 36416; 36556; 51701; 71045; 71046; 74176; 76705; 76770; 78451; 80053; 81003; 81015; 82533; 82553; 82570; 82607; 82746; 82805; 83605; 83735; 83880; 84100; 84156; 84300; 84443; 84484; 84540; 85007; 85025; 85027; 85730; 87040; 87086; 87324; 87449; 93005; 93010; 93306; 93970; 94640; 94660; 94760; 96361; 96365; 96366; 96367; A9540; J0456; J0692; J0696; J1120; J1644; J1720; J1815; J1940; J2001; J2020; J3475; J3490; J7050; J7611; J7620; J7626; P9047; S0028; U0002

== ENCOUNTER 2020-04-03 22:51 | Emergency (ER) | payer MEDICARE, MEDICAID ==
[2020-04-03] MEDS ORDERED: HYDROcodone/Acetaminophen 5/325 mg Tablet ONE (23:22)
[2020-04-04 00:36] LABS: Bilirubin Negative (Negative); Blood, Urine 2+ (Negative); Clarity Turbid (Clear); Glucose, Urine (Dipstick) Normal (Negative); Ketone, Urine Negative (Negative); Nitrite Negative (Negative); Protein, Urine (Dipstick) 50 mg/dL (Neg-Trace); Specific Gravity, Urine 1.013 (1.002-1.036); Squamous Epithelial 0-3 HPF (0-3); Urobilinogen Normal mg/dL (Less than 2); WBC/HPF 21-50 HPF (0-3)
[2020-04-04 00:42] LABS: Bacteria/HPF 1+ HPF (None Seen); Leukocyte 500 Leu/uL (Negative)
[2020-04-04] MEDS ORDERED: HYDROcodone/Acetaminophen 5/325 mg Tablet ONE (01:36)
== END 2020-04-04 03:07 | disposition home or self-care (01) ==
LOC: ERS 22:51
DX: N30.90 Cystitis, unspecified without hematuria (principal); E11.9 Type 2 diabetes mellitus without complications; I11.0 Hypertensive heart disease with heart failure; I50.32 Chronic diastolic (congestive) heart failure; I89.0 Lymphedema, not elsewhere classified; G47.00 Insomnia, unspecified; K21.9 Gastro-esophageal reflux disease without esophagitis; M19.90 Unspecified osteoarthritis, unspecified site; Z79.84 Long term (current) use of oral hypoglycemic drugs; Z79.899 Other long term (current) drug therapy
CPT/HCPCS: 51702; 81003; 81015